=== PATIENT | female | born 1955 | race African-American/Black ===

== ENCOUNTER 2017-09-23 15:35 | Inpatient (IN) | payer MEDICARE, OTHER ==
[2017-09-23 18:50] LABS: ADD MAN DIFF? NO
[2017-09-23] MEDS: fentaNYL PF VIAL 100 MCG/2 ML VIAL IV ×3 (18:51→21:59)
[2017-09-23 18:54] LABS: BASO # 0.2 x10^3/uL (0.0-0.2); BASO % 1 % (0-3); EOS # 0.2 x10^3/uL (0.0-0.7); EOS % 2 % (0-3); HEMOGLOBIN 11.4 g/dL (12.0-15.5); LYMPH # 3.7 x10^3/uL (1.0-4.8); LYMPH % 29 % (24-48); MEAN CORPUSCULAR HEMOGLOBIN 29 pg (25-35); MEAN CORPUSCULAR HGB CONC 33 g/dL (31-37); MEAN CORPUSCULAR VOLUME 89 fL (79-100); MONO # 1.6 x10^3/uL (0.0-1.1); MONO % 13 % (0-9); NEUT % 56 % (31-73); PLATELET COUNT 273 x10^3/uL (140-400); RED BLOOD COUNT 3.95 x10^6/uL (3.50-5.40); RED CELL DISTRIBUTION WIDTH 16.1 % (11.5-14.5); WHITE BLOOD COUNT 12.6 x10^3/uL (4.0-11.0)
[2017-09-23 19:01] LABS: ANION GAP 9 (6-14); BLOOD UREA NITROGEN 22 mg/dL (7-20); CALCIUM 9.6 mg/dL (8.5-10.1); CARBON DIOXIDE 28 mmol/L (21-32); CHLORIDE 102 mmol/L (98-107); CREATININE 0.9 mg/dL (0.6-1.0); GFR 76.5; GLUCOSE 217 mg/dL (70-99); SODIUM 139 mmol/L (136-145)
[2017-09-23 19:02] LABS: INR 1.1 (0.8-1.1); PARTIAL THROMBOPLASTIN TIME 24 SEC (24-38); PROTHROMBIN TIME PATIENT 13.6 SEC (11.7-14.0)
[2017-09-23 20:00] LABS: ALBUMIN 3.2 g/dL (3.4-5.0); ALK PHOS 138 U/L (46-116); ALT (SGPT) 49 U/L (14-59); AST (SGOT) 39 U/L (15-37); DIRECT BILIRUBIN 0.1 mg/dL (0.0-0.2); LIPASE 79 U/L (73-393); TOTAL BILIRUBIN 0.3 mg/dL (0.2-1.0); TOTAL PROTEIN 7.5 g/dL (6.4-8.2)
[2017-09-23 20:04] LABS: TROPONINI 0.021 ng/mL (0.000-0.055)
[2017-09-23 20:08] LABS: NT-PRO BNP 40 pg/mL (0-124)
[2017-09-23] MEDS: ONDANSETRON PF 4 MG/2 ML VIAL. IV (20:26)
[2017-09-23] MEDS: FUROSEMIDE 20 MG/2 ML VIAL. IVP (20:27)
[2017-09-23] MEDS: MORPHINE SULFATE 4 MG/ML DISP.SYRIN. IV (23:33)
[2017-09-24] MEDS: MORPHINE SULFATE 4 MG/ML DISP.SYRIN. IV ×3 (01:25→16:53)
[2017-09-24] MEDS: oxyCODONE IR 5 MG TABLET PO ×3 (01:25→23:40)
[2017-09-24 07:41] LABS: ADD MAN DIFF? NO
[2017-09-24 07:45] LABS: BASO # 0.1 x10^3/uL (0.0-0.2); BASO % 1 % (0-3); EOS # 0.2 x10^3/uL (0.0-0.7); EOS % 1 % (0-3); HEMATOCRIT 36.7 % (36.0-47.0); HEMOGLOBIN 11.6 g/dL (12.0-15.5); LYMPH % 33 % (24-48); MEAN CORPUSCULAR HEMOGLOBIN 28 pg (25-35); MEAN CORPUSCULAR HGB CONC 32 g/dL (31-37); MEAN CORPUSCULAR VOLUME 90 fL (79-100); MONO # 1.9 x10^3/uL (0.0-1.1); MONO % 16 % (0-9); NEUT % 49 % (31-73); PLATELET COUNT 286 x10^3/uL (140-400); RED BLOOD COUNT 4.09 x10^6/uL (3.50-5.40); RED CELL DISTRIBUTION WIDTH 16.6 % (11.5-14.5); WHITE BLOOD COUNT 12.3 x10^3/uL (4.0-11.0)
[2017-09-24 08:12] LABS: ANION GAP 10 (6-14); BLOOD UREA NITROGEN 24 mg/dL (7-20); CALCIUM 9.4 mg/dL (8.5-10.1); CARBON DIOXIDE 27 mmol/L (21-32); CHLORIDE 104 mmol/L (98-107); CREATININE 1.6 mg/dL (0.6-1.0); GFR 39.4; GLUCOSE 198 mg/dL (70-99); POTASSIUM 4.6 mmol/L (3.5-5.1); SODIUM 141 mmol/L (136-145)
[2017-09-24] MEDS: buPROPion XL 150 MG TAB.ER.24H. PO (09:15)
[2017-09-24] MEDS ORDERED: DEXTROSE 50% 25 GM / 50ML DISP.SYRIN. IV (09:15)
[2017-09-24] MEDS ORDERED: ZOLPIDEM 5 MG TABLET. PO (09:15)
[2017-09-24] MEDS ORDERED: oxyCODONE IR 5 MG TABLET PO (09:15)
[2017-09-24] MEDS ORDERED: NON FORMULARY ITEM ([Albuterol Sulfate] (Ventolin Neb Soln) 2.5 MG) NEB (09:15)
[2017-09-24] MEDS: ANTI-COAG MONITOR BY PHARMACY. MC (09:28)
[2017-09-24] MEDS: OXYBUTYNIN CHLORIDE 5 MG TABLET PO ×3 (09:30→21:47)
[2017-09-24] MEDS ORDERED: PERFLUTREN PROTEIN-A MICROSPHR 0.22 MG/ML 3 ML VIAL. IV (11:09)
[2017-09-24] MEDS: PANTOPRAZOLE 40 MG TABLET.DR. PO (11:30)
[2017-09-24] MEDS: INSULIN ASPART 300 UNITS/3 ML INSULN.PEN SQ ×2 (12:00→17:19)
[2017-09-24] MEDS: ALBUTEROL SULFATE 2.5 MG/3 ML NEBU. NEB (13:05)
[2017-09-24 14:32] LABS: MRSA BY PCR Negative (Negative)
[2017-09-24] MEDS: PERFLUTREN PROTEIN-A MICROSPHR 0.22 MG/ML 3 ML VIAL. IV (14:43)
[2017-09-24] MEDS: DOXYCYCLINE HYCLATE 100 MG TABLET PO ×2 (16:38→21:46)
[2017-09-24] MEDS: FLUTICASONE 50MCG/NASAL SPRAY 16GM BOTTLE. NS (16:38)
[2017-09-24 17:05] LABS: POC GLUCOSE 237 mg/dL (70-99)
[2017-09-24] MEDS: INSULIN DETEMIR 300 UNITS/3 ML INSULN.PEN. SQ (17:18)
[2017-09-24 20:45] LABS: POC GLUCOSE 199 mg/dL (70-99)
[2017-09-24] MEDS: LACTOBACILLUS RHAMNOSUS GG 1 CAPSULE. PO (21:46)
[2017-09-24] MEDS: ATORVASTATIN CALCIUM 40 MG TABLET. PO (21:46)
[2017-09-25 00:10] LABS: HEMOGLOBIN A1C 8.4 % (4.8-5.6)
[2017-09-25] MEDS: oxyCODONE IR 5 MG TABLET PO ×5 (06:07→18:36)
[2017-09-25] MEDS: PANTOPRAZOLE 40 MG TABLET.DR. PO (06:07)
[2017-09-25 07:25] LABS: POC GLUCOSE 224 mg/dL (70-99)
[2017-09-25] MEDS: INSULIN ASPART 300 UNITS/3 ML INSULN.PEN SQ ×4 (08:35→18:42)
[2017-09-25] MEDS: LACTOBACILLUS RHAMNOSUS GG 1 CAPSULE. PO ×2 (08:36→21:10)
[2017-09-25] MEDS: buPROPion XL 150 MG TAB.ER.24H. PO (08:36)
[2017-09-25] MEDS: OXYBUTYNIN CHLORIDE 5 MG TABLET PO ×3 (08:36→21:10)
[2017-09-25] MEDS: DOXYCYCLINE HYCLATE 100 MG TABLET PO ×2 (08:36→21:10)
[2017-09-25 08:37] LABS: ADD MAN DIFF? NO
[2017-09-25] MEDS: FLUTICASONE 50MCG/NASAL SPRAY 16GM BOTTLE. NS (08:37)
[2017-09-25] MEDS: INSULIN DETEMIR 300 UNITS/3 ML INSULN.PEN. SQ (08:47)
[2017-09-25 08:57] LABS: BASO # 0.1 x10^3/uL (0.0-0.2); BASO % 1 % (0-3); EOS # 0.3 x10^3/uL (0.0-0.7); EOS % 2 % (0-3); HEMATOCRIT 33.2 % (36.0-47.0); HEMOGLOBIN 10.6 g/dL (12.0-15.5); LYMPH # 3.5 x10^3/uL (1.0-4.8); LYMPH % 30 % (24-48); MEAN CORPUSCULAR HEMOGLOBIN 28 pg (25-35); MEAN CORPUSCULAR HGB CONC 32 g/dL (31-37); MEAN CORPUSCULAR VOLUME 89 fL (79-100); MONO # 1.6 x10^3/uL (0.0-1.1); MONO % 13 % (0-9); NEUT # 6.5 x10^3uL (1.8-7.7); NEUT % 54 % (31-73); PLATELET COUNT 284 x10^3/uL (140-400); RED BLOOD COUNT 3.72 x10^6/uL (3.50-5.40); RED CELL DISTRIBUTION WIDTH 16.5 % (11.5-14.5)
[2017-09-25 09:16] LABS: ALBUMIN/GLOBULIN RATIO 0.7 (1.0-1.7); ALK PHOS 158 U/L (46-116); ALT (SGPT) 67 U/L (14-59); ANION GAP 6 (6-14); AST (SGOT) 57 U/L (15-37); BLOOD UREA NITROGEN 30 mg/dL (7-20); BUN/CREATININE RATIO 21 (6-20); CARBON DIOXIDE 31 mmol/L (21-32); CHLORIDE 103 mmol/L (98-107); CREATININE 1.4 mg/dL (0.6-1.0); GLUCOSE 239 mg/dL (70-99); POTASSIUM 4.5 mmol/L (3.5-5.1); SODIUM 140 mmol/L (136-145); TOTAL BILIRUBIN 0.3 mg/dL (0.2-1.0); TOTAL PROTEIN 7.3 g/dL (6.4-8.2)
[2017-09-25 11:14] LABS: POC GLUCOSE 232 mg/dL (70-99)
[2017-09-25] MEDS: ANTI-COAG MONITOR BY PHARMACY. MC (15:18)
[2017-09-25 17:00] LABS: POC GLUCOSE 236 mg/dL (70-99)
[2017-09-25] MEDS: CLOPIDOGREL BISULFATE 75 MG TABLET PO (17:04)
[2017-09-25] MEDS: FUROSEMIDE 40 MG TABLET. PO (17:04)
[2017-09-25] MEDS: metFORMIN 500 MG TABLET PO (17:04)
[2017-09-25] MEDS: cloNIDine HCL 0.2 MG TABLET PO ×2 (17:05→21:10)
[2017-09-25] MEDS: POTASSIUM CHLORIDE 10 MEQ TABLET.ER. PO (17:05)
[2017-09-25] MEDS: LOSARTAN POTASSIUM 50 MG TABLET. PO (17:06)
[2017-09-25] MEDS: DULoxetine HCL 30 MG CAPSULE.DR PO (17:07)
[2017-09-25] MEDS: CYCLOBENZAPRINE 10 MG TABLET. PO (21:09)
[2017-09-25] MEDS: ATORVASTATIN CALCIUM 40 MG TABLET. PO (21:09)
[2017-09-25] MEDS: ONDANSETRON PF 4 MG/2 ML VIAL. IV (21:10)
[2017-09-25] MEDS: GABAPENTIN 100 MG CAPSULE. PO (21:10)
[2017-09-25 21:23] LABS: POC GLUCOSE 168 mg/dL (70-99)
[2017-09-26 05:18] LABS: HEMATOCRIT 30.9 % (36.0-47.0); HEMOGLOBIN 10.1 g/dL (12.0-15.5); MEAN CORPUSCULAR HEMOGLOBIN 29 pg (25-35); MEAN CORPUSCULAR HGB CONC 33 g/dL (31-37); MEAN CORPUSCULAR VOLUME 89 fL (79-100); PLATELET COUNT 268 x10^3/uL (140-400); RED BLOOD COUNT 3.48 x10^6/uL (3.50-5.40); RED CELL DISTRIBUTION WIDTH 16.4 % (11.5-14.5); WHITE BLOOD COUNT 10.9 x10^3/uL (4.0-11.0)
[2017-09-26 05:36] LABS: ANION GAP 3 (6-14); BLOOD UREA NITROGEN 28 mg/dL (7-20); CARBON DIOXIDE 33 mmol/L (21-32); CHLORIDE 103 mmol/L (98-107); CREATININE 1.4 mg/dL (0.6-1.0); GLUCOSE 155 mg/dL (70-99); POTASSIUM 4.4 mmol/L (3.5-5.1); SODIUM 139 mmol/L (136-145)
[2017-09-26] MEDS: PANTOPRAZOLE 40 MG TABLET.DR. PO (07:30)
[2017-09-26] MEDS: metFORMIN 500 MG TABLET PO ×2 (08:01→16:32)
[2017-09-26] MEDS: oxyCODONE IR 5 MG TABLET PO ×3 (08:01→18:12)
[2017-09-26] MEDS: OXYBUTYNIN CHLORIDE 5 MG TABLET PO ×2 (08:02→11:38)
[2017-09-26] MEDS: LOSARTAN POTASSIUM 50 MG TABLET. PO (08:02)
[2017-09-26] MEDS: FUROSEMIDE 40 MG TABLET. PO (08:02)
[2017-09-26] MEDS: DULoxetine HCL 30 MG CAPSULE.DR PO (08:02)
[2017-09-26] MEDS: buPROPion XL 150 MG TAB.ER.24H. PO (08:03)
[2017-09-26] MEDS: LACTOBACILLUS RHAMNOSUS GG 1 CAPSULE. PO (08:03)
[2017-09-26] MEDS: DOXYCYCLINE HYCLATE 100 MG TABLET PO (08:03)
[2017-09-26] MEDS: CLOPIDOGREL BISULFATE 75 MG TABLET PO (08:03)
[2017-09-26] MEDS: POTASSIUM CHLORIDE 10 MEQ TABLET.ER. PO (08:03)
[2017-09-26] MEDS: FLUTICASONE 50MCG/NASAL SPRAY 16GM BOTTLE. NS (08:04)
[2017-09-26] MEDS: cloNIDine HCL 0.2 MG TABLET PO ×2 (08:04→11:39)
[2017-09-26] MEDS: INSULIN DETEMIR 300 UNITS/3 ML INSULN.PEN. SQ (08:13)
[2017-09-26] MEDS: INSULIN ASPART 300 UNITS/3 ML INSULN.PEN SQ ×6 (08:14→16:32)
[2017-09-26] MEDS ORDERED: CLOPIDOGREL BISULFATE 75 MG TABLET PO (09:00)
[2017-09-26 11:59] LABS: POC GLUCOSE 157 mg/dL (70-99)
[2017-09-26 14:50] LABS: BASE EXCESS ABG 3 mmol/L (-3-3); HCO3 ABG 28 mmol/L (21-28); PCO2 ABG 44 mmHg (35-46); PH ABG 7.42 (7.35-7.45); PO2 ABG 57 mmHg (65-108); SAT O2 ABG 89 % (92-99)
[2017-09-26 14:53] LABS: FIO2 ABG 21
[2017-09-26 16:42] LABS: POC GLUCOSE 96 mg/dL (70-99)
== END 2017-09-26 19:00 | DRG 562 ==
LOC: 5 NORTH 09-24 12:55 → ER 15:35 → 1 WEST ICU 19:56
DX: S52.501A Unspecified fracture of the lower end of right radius, initial encounter for closed fracture (principal); I63.9 Cerebral infarction, unspecified; J96.01 Acute respiratory failure with hypoxia; I27.81 Cor pulmonale (chronic); E66.01 Morbid (severe) obesity due to excess calories; G81.91 Hemiplegia, unspecified affecting right dominant side; E11.42 Type 2 diabetes mellitus with diabetic polyneuropathy; L03.116 Cellulitis of left lower limb; Z68.43 Body mass index [BMI] 50.0-59.9, adult; F41.9 Anxiety disorder, unspecified; M19.90 Unspecified osteoarthritis, unspecified site; E78.5 Hyperlipidemia, unspecified; G47.33 Obstructive sleep apnea (adult) (pediatric); I11.0 Hypertensive heart disease with heart failure; K21.9 Gastro-esophageal reflux disease without esophagitis; I50.9 Heart failure, unspecified; S52.601A Unspecified fracture of lower end of right ulna, initial encounter for closed fracture; W05.0XXA Fall from non-moving wheelchair, initial encounter; J44.9 Chronic obstructive pulmonary disease, unspecified; Z79.4 Long term (current) use of insulin; Y93.89 Activity, other specified; Y92.89 Other specified places as the place of occurrence of the external cause; Y99.8 Other external cause status; Z90.710 Acquired absence of both cervix and uterus; Z90.49 Acquired absence of other specified parts of digestive tract; Z87.01 Personal history of pneumonia (recurrent); Z87.891 Personal history of nicotine dependence; Z83.3 Family history of diabetes mellitus; Z99.3 Dependence on wheelchair; Z88.6 Allergy status to analgesic agent
CPT/HCPCS: 36415; 36600; 71045; 72100; 73080; 73110; 73521; 73600; 78582; 80048; 80053; 80076; 82306; 82805; 82962; 83036; 83690; 83880; 84484; 85025; 85027; 85610; 85730; 87641; 93005; 93970; 94640; 94760; 96374; 97162-GP; 97166-GO; A9540; A9558; C8929; J1650; J1815; J2270; J2405; J3010; J7613; Q9956

== ENCOUNTER → 2017-11-24 | Outpatient (CLI) | payer MEDICARE | END | disposition home or self-care (01) | LOC: ECHO 07:46 | DX: I11.0 Hypertensive heart disease with heart failure (principal); I50.9 Heart failure, unspecified; E78.5 Hyperlipidemia, unspecified; J44.9 Chronic obstructive pulmonary disease, unspecified; Z87.891 Personal history of nicotine dependence | CPT/HCPCS: 93306 ==

== ENCOUNTER 2018-05-16 00:17 | Inpatient (IN) | payer MEDICARE ==
[~2018-05-16] VITALS: Ht 162.6 cm; Wt 130.4 kg
[~2018-05-16 00:17] MED LIST: AMLO10TA4 PO; AMLO5TAB7 PO; ATOR40TA59 PO; Albuterol Sulfate NEB; Amlodipine PO; BUPR150T6 PO; CEPH-264 PO; CLON0.2T PO; CLOP75TA PO; CYCL10TA2 PO; DULO60CA6 PO; FLUT16SP NS; FLUT1DIS3 INH; FURO40TA4 PO; GABA-585 PO; INSU100I11 SQ; INSU100I13 SQ; LORA10TA3 PO; METF500T16 PO; Melatonin PO; OXYC5TAB88 PO; PANT40TA3 PO; POTA10TA6 PO; PRED-220 PO; Promethazine Hcl/Codeine PO; TOLT4CAP PO; VALS320T2 PO; ZOLP5TAB PO; [UNRECOGNIZED DRUG - CODE] PO
--- NOTE | 2018-05-16 01:49 | RAD ---
CT scan of the head without contrast 05/16/2018 Clinical History: Altered mental status. Generalized weakness. Technique: Unenhanced, contiguous, 5 mm axial sections were obtained through the head. One or more of the following individualized dose reduction techniques were utilized for this study: 1. Automated exposure control. 2. Adjustment of the mA and/or kV according to patient size. 3. Use of iterative reconstruction technique. Findings: Comparison study is dated 07/16/2012. There is generalized parenchymal atrophy. Areas of decreased attenuation are seen within the periventricular and subcortical white matter of both cerebral hemispheres consistent with areas of small vessel ischemic disease. Areas of encephalomalacia are seen involving both occipital lobes No acute parenchymal abnormality is seen. No extra-axial fluid collection is noted. No skull fracture is seen. Impression: No acute intracranial abnormality is seen. Electronically signed by: Jeevan Vieira MD (05/16/2018 1:46 AM) [id number]
[2018-05-16 01:50] LABS: BASO # 0.1 x10^3/uL (0.0-0.2); BASO % 1 % (0-3); EOS # 0.2 x10^3/uL (0.0-0.7); EOS % 1 % (0-3); HEMATOCRIT 31.8 % (36.0-47.0); LYMPH # 2.5 x10^3/uL (1.0-4.8); LYMPH % 16 % (24-48); MEAN CORPUSCULAR HEMOGLOBIN 26 pg (25-35); MEAN CORPUSCULAR HGB CONC 32 g/dL (31-37); MEAN CORPUSCULAR VOLUME 81 fL (79-100); MONO # 1.3 x10^3/uL (0.0-1.1); MONO % 9 % (0-9); NEUT # 11.5 x10^3uL (1.8-7.7); NEUT % 73 % (31-73); PLATELET COUNT 351 x10^3/uL (140-400); RED BLOOD COUNT 3.94 x10^6/uL (3.50-5.40); RED CELL DISTRIBUTION WIDTH 16.7 % (11.5-14.5); WHITE BLOOD COUNT 15.7 x10^3/uL (4.0-11.0)
[2018-05-16 02:00] LABS: CREATININE 1.6 mg/dL (0.6-1.0); GFR 39.3; POTASSIUM 3.3 mmol/L (3.5-5.1)
[2018-05-16 02:06] LABS: ALBUMIN 2.9 g/dL (3.4-5.0); ALBUMIN/GLOBULIN RATIO 0.6 (1.0-1.7); TOTAL BILIRUBIN 0.2 mg/dL (0.2-1.0); TOTAL PROTEIN 7.5 g/dL (6.4-8.2)
[2018-05-16 02:24] LABS: BILIRUBIN,URINE NEGATIVE (NEG); CLARITY,URINE CLEAR; COLOR,URINE YELLOW; NITRITE,URINE NEGATIVE (NEG); PH,URINE 5.5; PROTEIN,URINE 100 mg/dL (NEG-TRACE); UROBILINOGEN,URINE 0.2 mg/dL (0.2 mg/dL)
[2018-05-16 02:29] LABS: BASE EXCESS ABG 2 mmol/L (-3-3); HCO3 ABG 26 mmol/L (21-28); PCO2 ABG 42 mmHg (35-46); PO2 ABG 69 mmHg (65-108); SAT O2 ABG 92 % (92-99)
[2018-05-16] MEDS ORDERED: CLOPIDOGREL BISULFATE 75 MG TABLET PO ONE (02:30)
[2018-05-16] MEDS ORDERED: cefTRIAXone IV Push 1 GM VIAL. IVP ONE (02:30)
[2018-05-16 02:32] LABS: BACTERIA,URINE MANY /HPF (0-FEW); RBC,URINE RARE /HPF (0-2)
[2018-05-16 02:33] LABS: HYALINE CASTS, URINE MANY /HPF
[2018-05-16] MEDS ORDERED: DOXYCYCLINE HYCLATE 100 MG in IV DEXTROSE 5% 100ML 100 ML IV ONE (02:45)
[2018-05-16] MEDS ORDERED: ASPIRIN 300 MG SUPP.RECT PR ONE (02:45)
[2018-05-16] MEDS ORDERED: POTASSIUM CL 20MEQ D5-0.45NACL 1,000 ML IV ONE (03:00)
[2018-05-16] MEDS ORDERED: IV NORMAL SALINE 1000ML BAG 1,000 ML IV ONE (03:00)
[2018-05-16] MEDS ORDERED: DEXTROSE 50% 25 GM / 50ML DISP.SYRIN. IV ONE ×2 (03:15→08:02)
--- NOTE | 2018-05-16 03:31 | RAD ---
AP portable chest radiograph 05/16/2018 Clinical History: Generalized weakness. An AP erect portable digital radiograph of the chest was obtained. Comparison study is dated 09/23/2017. The cardiac silhouette is mildly enlarged. Atherosclerotic calcification of the thoracic aorta is seen. No acute pulmonary infiltrate is seen. No pleural effusion or pneumothorax is noted. The osseous structures are grossly intact. Impression: No acute abnormality is seen. Electronically signed by: Jeevan Vieira MD (05/16/2018 3:27 AM) [facility]
--- NOTE | 2018-05-16 03:56 | PHYS DOC ---
Past Medical History Past Medical History: CVA, Diabetes-Type I, Hypertension, Stroke Past Surgical History: Appendectomy, Cholecystectomy, Hysterectomy, Other Additional Past Surgical Histo: back Alcohol Use: None Drug Use: None Adult General Chief Complaint Chief Complaint: WEAKNESS/GENERALIZED HPI HPI Patient is a 63 year old female who is presenting brought in by ambulance with generalized weakness. Apparently for the last 3 days she has had increasing able to ambulate on her own she has been coughing she is more short of breath than normal in addition she is having slurred speech the partner who is with her and lives with her thinks that she may have had another stroke as this was similar to how she was with her last one was. Overall history the patient's altered mental status. She has had decreased by mouth intake and a couple of bites of chicken at around 6 PM did give her dose of insulin around that time as well. Additional history obtained from the daughter reveals the patient is a DNR/DNI she is worried because the patient has been coughing for over a month and did take some outpatient antibiotics at that 3 weeks ago but she is still coughing. For the paramedics the blood sugar was 41 they gave glucagon and fluids and it went up to 122 and then dropped back down to 96. Review of Systems Review of Systems unable due to ams Current Medications Current Medications Current Medications Medications (Trade) Dose Ordered Sig/Nam Start Time Stop Time Status Last Admin Dose Admin Aspirin (Aspirin) 300 mg 1X ONCE 05/16/18 02:45 05/16/18 02:53 DC 05/16/18 02:58 300 MG Ceftriaxone Sodium (Rocephin) 1 gm ONCE ONCE 05/16/18 02:30 05/16/18 02:31 DC 05/16/18 02:57 1 GM Clopidogrel Bisulfate (Plavix) 75 mg 1X ONCE 05/16/18 02:30 05/16/18 02:31 DC Doxycycline Hyclate 100 mg/ Dextrose 100 ml @ 50 mls/hr 1X ONCE 05/16/18 02:45 05/16/18 04:44 05/16/18 03:43 50 MLS/HR Allergies Allergies Allergies Coded Allergies Type Severity Reaction Last Updated Verified aspirin Adverse Reaction Intermediate UPSET STOMACHE 05/16/18 Yes Physical Exam Physical Exam Constitutional: Well-appearing overall somnolent but arousable to voice or light touch ill-appearing HENT: Normocephalic, atraumatic, bilateral external ears normal, oropharynx moist, no oral exudates, nose normal. [] Eyes: PERRLA, EOMI, conjunctiva normal, no discharge. [] Neck: Normal range of motion, no tenderness, supple, no stridor. [] Cardiovascular:Heart rate regular rhythm, no murmur [] Lungs & Thorax: decreased breath sounds b/l lung bases. Abdomen: Bowel sounds normal, soft, no tenderness, no masses, no pulsatile masses. [] Skin: Warm, dry, no erythema, no rash. [] Extremities: No tenderness, no cyanosis, no clubbing, ROM intact, chronic appering edema Neurologic: alert when stimulated, gcs e 3 v 4 m 6. pt has hemiparesis no movement of right side, (old) drift noted left lower extremity slurred speech noted sleepy but arousable not able to answer questions appropriately. right facial droop able to bury sclera b/l does not blink to threat. Current Patient Data Vital Signs Vital Signs Date Time Temp Pulse Resp B/P (MAP) Pulse Ox O2 Delivery O2 Flow Rate FiO2 05/16/18 01:00 66 20 96 05/16/18 00:17 98.6 95/57 (70) Nasal Cannula 4.0 98.6 Lab Values Laboratory Tests Test 05/16/18 00:25 05/16/18 01:40 05/16/18 01:55 05/16/18 02:05 Glucose (Fingerstick) 96 mg/dL (70-99) 76 mg/dL (70-99) White Blood Count 15.7 x10^3/uL (4.0-11.0) H Red Blood Count 3.94 x10^6/uL (3.50-5.40) Hemoglobin 10.0 g/dL (12.0-15.5) L Hematocrit 31.8 % (36.0-47.0) L Mean Corpuscular Volume 81 fL (79-100) Mean Corpuscular Hemoglobin 26 pg (25-35) Mean Corpuscular Hemoglobin Concent 32 g/dL (31-37) Red Cell Distribution Width 16.7 % (11.5-14.5) H Platelet Count 351 x10^3/uL (140-400) Neutrophils (%) (Auto) 73 % (31-73) Lymphocytes (%) (Auto) 16 % (24-48) L Monocytes (%) (Auto) 9 % (0-9) Eosinophils (%) (Auto) 1 % (0-3) Basophils (%) (Auto) 1 % (0-3) Neutrophils # (Auto) 11.5 x10^3uL (1.8-7.7) H Lymphocytes # (Auto) 2.5 x10^3/uL (1.0-4.8) Monocytes # (Auto) 1.3 x10^3/uL (0.0-1.1) H Eosinophils # (Auto) 0.2 x10^3/uL (0.0-0.7) Basophils # (Auto) 0.1 x10^3/uL (0.0-0.2) Sodium Level 142 mmol/L (136-145) Potassium Level 3.3 mmol/L (3.5-5.1) L Chloride Level 101 mmol/L (98-107) Carbon Dioxide Level 30 mmol/L (21-32) Anion Gap 11 (6-14) Blood Urea Nitrogen 30 mg/dL (7-20) H Creatinine 1.6 mg/dL (0.6-1.0) H Estimated GFR (Cockcroft-Gault) 39.3 BUN/Creatinine Ratio 19 (6-20) Glucose Level 73 mg/dL (70-99) Lactic Acid Level 2.2 mmol/L (0.4-2.0) H Calcium Level 9.0 mg/dL (8.5-10.1) Total Bilirubin 0.2 mg/dL (0.2-1.0) Aspartate Amino Transferase (AST) 25 U/L (15-37) Alanine Aminotransferase (ALT) 29 U/L (14-59) Alkaline Phosphatase 108 U/L (46-116) Creatine Kinase 140 U/L (26-192) Troponin I Quantitative 0.115 ng/mL (0.000-0.055) QJ-Gzy-Z-Type Natriuretic Peptide 46 pg/mL (0-124) Total Protein 7.5 g/dL (6.4-8.2) Albumin 2.9 g/dL (3.4-5.0) L Albumin/Globulin Ratio 0.6 (1.0-1.7) L Ethyl Alcohol Level < 10 mg/dL (0-10) O2 Saturation 92 % (92-99) Arterial Blood pH 7.41 (7.35-7.45) Arterial Blood pCO2 at Patient Temp 42 mmHg (35-46) Arterial Blood pO2 at Patient Temp 69 mmHg (65-108) Arterial Blood HCO3 26 mmol/L (21-28) Arterial Blood Base Excess 2 mmol/L (-3-3) Test 05/16/18 02:10 05/16/18 02:58 Urine Collection Type U cath Urine Color Yellow Urine Clarity Clear Urine pH 5.5 Urine Specific [place] 1.020 Urine Protein 100 mg/dL (NEG-TRACE) Urine Glucose (UA) Negative mg/dL (NEG) Urine Ketones (Stick) Negative mg/dL (NEG) Urine Blood Negative (NEG) Urine Nitrite Negative (NEG) Urine Bilirubin Negative (NEG) Urine Urobilinogen Dipstick 0.2 mg/dL (0.2 mg/dL) Urine Leukocyte Esterase Moderate (NEG) Urine RBC Rare /HPF (0-2) Urine WBC 11-20 /HPF (0-4) Urine Squamous Epithelial Cells None /LPF Urine Bacteria Many /HPF (0-FEW) Urine Hyaline Casts Many /HPF Urine Mucus Mod /LPF Glucose (Fingerstick) 35 mg/dL (70-99) *L Laboratory Tests 05/16/18 01:40 Laboratory Tests 05/16/18 01:40 EKG EKG [] Interpretation Time: EKG shows a normal sinus rhythm with a rate of 70 there are no acute ischemic changes noted this was interpreted by me time of encounter Radiology/Procedures Radiology/Procedures [] Impressions: The cardiac silhouette is mildly enlarged. Atherosclerotic calcification of the thoracic aorta is seen. No acute pulmonary infiltrate is seen. No pleural effusion or pneumothorax is noted. The osseous structures are grossly intact. Impression: No acute abnormality is seen. Electronically signed by: Jeevan Vieira MD (05/16/2018 3:27 AM) [facility] DICTATED and SIGNED BY: JEEVAN VIEIRA MD DATE: 05/16/18 0325 my interpretatino of chest xray during the course of er visit is opacity at the left lung base with loss of diaphragm. gs: Comparison study is dated 07/16/2012. There is generalized parenchymal atrophy. Areas of decreased attenuation are seen within the periventricular and subcortical white matter of both cerebral hemispheres consistent with areas of small vessel ischemic disease. Areas of encephalomalacia are seen involving both occipital lobes No acute parenchymal abnormality is seen. No extra-axial fluid collection is noted. No skull fracture is seen. Impression: No acute intracranial abnormality is seen. Electronically signed by: Jeevan Vieira MD (05/16/2018 1:46 AM) [facility] DICTATED and SIGNED BY: JEEVAN VIEIRA MD DATE: 05/16/18 0144 Course & Med Decision Making Course & Med Decision Making Pertinent Labs and Imaging studies reviewed. (See chart for details) []63-year-old female with history of prior stroke diabetes presenting with increase in his dose over the last 3 or 4 days. She is known hemiparesis this does not seem different than her baseline however mental status is depressed. She has multiple reasons for this she has a leukocytosis I think she might have a pneumonia on her chest x-ray although the final read was negative. Urinalysis is noted for pyuria to be covered with ceftriaxone. She is a bump in her creatinine up to 1.6 from a baseline of 0.8 her lactic acid is mildly elevated. In addition patient is having recurrent hypoglycemia she did have a hypoglycemia in the field and then has repeatedly dropped back down in the emergency room. This is likely related to combination of acute kidney injury with excess insulin and also possibly decreased by mouth intake at home. I have ordered dextrose strip and every 2 hours glucose checks overnight for the hospital. I spoke with Dr. Gonzalez at 2:30 AM plan to admit to the hospital for possible pneumonia leukocytosis dehydration bump in troponin hypoglycemia on a recurrent basis. CVA is a possibility however patient has multiple other reasons for altered mental status at this time. rectal aspirin given. trop likely from renal insufficiency no chest pain or ekg changes. cycle in house repeat lactic in house as well. Dragon Disclaimer Dragon Disclaimer This electronic medical record was generated, in whole or in part, using a voice recognition dictation system. Departure Departure Impression: Primary Impression: Pneumonia Additional Impressions: Troponin level elevated Acute kidney injury Hypoglycemia Disposition: 09 ADMITTED INPATIENT Admitting Physician: Pushpa Gonzalez Condition: STABLE Referrals: KEVIN GUERRERO MD (PCP) Problem Qualifiers CARMEN MERCADO MD May 16, 2018 03:56
[2018-05-16 04:55] VITALS: BP 138/59
[2018-05-16 07:00] VITALS: BP 163/79
[2018-05-16] MEDS ORDERED: INSU100I17 SQ (10:16)
[2018-05-16] MEDS ORDERED: HYDR12.575 PO (10:16)
[2018-05-16] MEDS ORDERED: INSU300I SQ (10:16)
[2018-05-16] MEDS ORDERED: METO50TA6 PO (10:16)
[2018-05-16] MEDS ORDERED: LOSA100T14 PO (10:16)
[2018-05-16] MEDS ORDERED: DEXTROSE 50% 25 GM / 50ML DISP.SYRIN. IV PRN (10:30)
--- NOTE | 2018-05-16 10:53 | PDOC ---
PROGRESS NOTES Subjective Subjective Patient denies chest pain or SOA. Feels weak on right side. Objective Objective Vital Signs Date Time Temp Pulse Resp B/P (MAP) Pulse Ox O2 Delivery O2 Flow Rate FiO2 05/16/18 07:44 Nasal Cannula 4.0 05/16/18 07:00 97.6 72 20 163/79 (107) 96 97.6 Intake and Output 05/16/18 07:00 Intake Total 100 ml Balance 100 ml Intake IV Total 100 ml Physical Exam Abdomen: Normal bowel sounds, Soft, No tenderness Heart: Regular rate Extremities: Other (mild chronic edema bilateral LE's, mild diffuse erythema L LE with scabbed lesion, no induration or exudate) General: Alert, Oriented X3, No acute distress Lungs: Other (BS decreased throughout, no wheezes heard, no cough during exam) Assessment Assessment Problems Medical Problems: (1) Acute kidney injury Status: Acute (2) Hypoglycemia Status: Acute (3) Pneumonia Status: Acute (4) Troponin level elevated Status: Acute Plan Plan of Care 1. Weakness R side - hx CVA with R hemiplegia but patient reports she felt much weaker than usual yesterday. This appears to have been the primary reason she was brought to the ER. CT head without contrast was without acute findings. MRI brain ordered. Continue her usual blood thinner. ST for bedside swallow evaluation ordered. Patient states she did not previously have trouble with swallowing and denies cough with eating. 2. Probably UTI - urine with 11-20 WBC's and no squamous cells. Patient denies urinary symptoms. Rocephin started, urine and blood cultures pending. 3. Elevated Troponin - level low but increasing. Patient denies CP. Does not have hx of CAD or CHF, last Echo 10/01 showed preserved EF but was technically difficult. Negative stress test in 2015. Will consult Cardiology since troponin is increasing. 4. DM2 with hypoglycemia - patient is insulin-dependent and recent A1C in our office was 9.7, indicating her diabetes has been poorly controlled. May have had decreased po intake recently due to illness. SS ordered, will hold her usual insulins at present and resume when needed. 5. Cough with hypoxia - CXR at admission was clear. No wheezes on exam. Patient does have long smoking history but quit 10 years ago and does not use inhalers at home. Continue O2 if needed. 6. Acute renal failure - BUN and Creatinine elevated at admission. Receiving IVF , will continue these for 24 hours then recheck lab. PO as tolerated. Comment Review of Relevant I have reviewed the following items emir (where applicable) has been applied. Labs Laboratory Tests Test 05/16/18 00:25 05/16/18 01:40 05/16/18 01:55 05/16/18 02:05 Glucose (Fingerstick) 96 mg/dL (70-99) 76 mg/dL (70-99) White Blood Count 15.7 x10^3/uL (4.0-11.0) Red Blood Count 3.94 x10^6/uL (3.50-5.40) Hemoglobin 10.0 g/dL (12.0-15.5) Hematocrit 31.8 % (36.0-47.0) Mean Corpuscular Volume 81 fL (79-100) Mean Corpuscular Hemoglobin 26 pg (25-35) Mean Corpuscular Hemoglobin Concent 32 g/dL (31-37) Red Cell Distribution Width 16.7 % (11.5-14.5) Platelet Count 351 x10^3/uL (140-400) Neutrophils (%) (Auto) 73 % (31-73) Lymphocytes (%) (Auto) 16 % (24-48) Monocytes (%) (Auto) 9 % (0-9) Eosinophils (%) (Auto) 1 % (0-3) Basophils (%) (Auto) 1 % (0-3) Neutrophils # (Auto) 11.5 x10^3uL (1.8-7.7) Lymphocytes # (Auto) 2.5 x10^3/uL (1.0-4.8) Monocytes # (Auto) 1.3 x10^3/uL (0.0-1.1) Eosinophils # (Auto) 0.2 x10^3/uL (0.0-0.7) Basophils # (Auto) 0.1 x10^3/uL (0.0-0.2) Sodium Level 142 mmol/L (136-145) Potassium Level 3.3 mmol/L (3.5-5.1) Chloride Level 101 mmol/L (98-107) Carbon Dioxide Level 30 mmol/L (21-32) Anion Gap 11 (6-14) Blood Urea Nitrogen 30 mg/dL (7-20) Creatinine 1.6 mg/dL (0.6-1.0) Estimated GFR (Cockcroft-Gault) 39.3 BUN/Creatinine Ratio 19 (6-20) Glucose Level 73 mg/dL (70-99) Lactic Acid Level 2.2 mmol/L (0.4-2.0) Calcium Level 9.0 mg/dL (8.5-10.1) Total Bilirubin 0.2 mg/dL (0.2-1.0) Aspartate Amino Transf (AST/SGOT) 25 U/L (15-37) Alanine Aminotransferase (ALT/SGPT) 29 U/L (14-59) Alkaline Phosphatase 108 U/L (46-116) Creatine Kinase 140 U/L (26-192) Troponin I Quantitative 0.115 ng/mL (0.000-0.055) YS-Ndw-M-Type Natriuretic Peptide 46 pg/mL (0-124) Total Protein 7.5 g/dL (6.4-8.2) Albumin 2.9 g/dL (3.4-5.0) Albumin/Globulin Ratio 0.6 (1.0-1.7) Ethyl Alcohol Level < 10 mg/dL (0-10) O2 Saturation 92 % (92-99) Arterial Blood pH 7.41 (7.35-7.45) Arterial Blood pCO2 at Patient Temp 42 mmHg (35-46) Arterial Blood pO2 at Patient Temp 69 mmHg (65-108) Arterial Blood HCO3 26 mmol/L (21-28) Arterial Blood Base Excess 2 mmol/L (-3-3) Test 05/16/18 02:10 05/16/18 02:58 05/16/18 03:28 05/16/18 05:54 Urine Collection Type U cath Urine Color Yellow Urine Clarity Clear Urine pH 5.5 Urine Specific [place] 1.020 Urine Protein 100 mg/dL (NEG-TRACE) Urine Glucose (UA) Negative mg/dL (NEG) Urine Ketones (Stick) Negative mg/dL (NEG) Urine Blood Negative (NEG) Urine Nitrite Negative (NEG) Urine Bilirubin Negative (NEG) Urine Urobilinogen Dipstick 0.2 mg/dL (0.2 mg/dL) Urine Leukocyte Esterase Moderate (NEG) Urine RBC Rare /HPF (0-2) Urine WBC 11-20 /HPF (0-4) Urine Squamous Epithelial Cells None /LPF Urine Bacteria Many /HPF (0-FEW) Urine Hyaline Casts Many /HPF Urine Mucus Mod /LPF Glucose (Fingerstick) 35 mg/dL (70-99) 162 mg/dL (70-99) 108 mg/dL (70-99) Test 05/16/18 06:30 05/16/18 07:56 05/16/18 08:26 05/16/18 08:45 Lactic Acid Level 1.7 mmol/L (0.4-2.0) Troponin I Quantitative 0.269 ng/mL (0.000-0.055) 0.304 ng/mL (0.000-0.055) Glucose (Fingerstick) 56 mg/dL (70-99) 139 mg/dL (70-99) Test 05/16/18 09:56 Glucose (Fingerstick) 98 mg/dL (70-99) Laboratory Tests Test 05/16/18 00:25 05/16/18 01:40 05/16/18 01:55 05/16/18 02:05 Glucose (Fingerstick) 96 mg/dL (70-99) 76 mg/dL (70-99) White Blood Count 15.7 x10^3/uL (4.0-11.0) Red Blood Count 3.94 x10^6/uL (3.50-5.40) Hemoglobin 10.0 g/dL (12.0-15.5) Hematocrit 31.8 % (36.0-47.0) Mean Corpuscular Volume 81 fL (79-100) Mean Corpuscular Hemoglobin 26 pg (25-35) Mean Corpuscular Hemoglobin Concent 32 g/dL (31-37) Red Cell Distribution Width 16.7 % (11.5-14.5) Platelet Count 351 x10^3/uL (140-400) Neutrophils (%) (Auto) 73 % (31-73) Lymphocytes (%) (Auto) 16 % (24-48) Monocytes (%) (Auto) 9 % (0-9) Eosinophils (%) (Auto) 1 % (0-3) Basophils (%) (Auto) 1 % (0-3) Neutrophils # (Auto) 11.5 x10^3uL (1.8-7.7) Lymphocytes # (Auto) 2.5 x10^3/uL (1.0-4.8) Monocytes # (Auto) 1.3 x10^3/uL (0.0-1.1) Eosinophils # (Auto) 0.2 x10^3/uL (0.0-0.7) Basophils # (Auto) 0.1 x10^3/uL (0.0-0.2) Sodium Level 142 mmol/L (136-145) Potassium Level 3.3 mmol/L (3.5-5.1) Chloride Level 101 mmol/L (98-107) Carbon Dioxide Level 30 mmol/L (21-32) Anion Gap 11 (6-14) Blood Urea Nitrogen 30 mg/dL (7-20) Creatinine 1.6 mg/dL (0.6-1.0) Estimated GFR (Cockcroft-Gault) 39.3 BUN/Creatinine Ratio 19 (6-20) Glucose Level 73 mg/dL (70-99) Lactic Acid Level 2.2 mmol/L (0.4-2.0) Calcium Level 9.0 mg/dL (8.5-10.1) Total Bilirubin 0.2 mg/dL (0.2-1.0) Aspartate Amino Transf (AST/SGOT) 25 U/L (15-37) Alanine Aminotransferase (ALT/SGPT) 29 U/L (14-59) Alkaline Phosphatase 108 U/L (46-116) Creatine Kinase 140 U/L (26-192) Troponin I Quantitative 0.115 ng/mL (0.000-0.055) YK-Rjm-P-Type Natriuretic Peptide 46 pg/mL (0-124) Total Protein 7.5 g/dL (6.4-8.2) Albumin 2.9 g/dL (3.4-5.0) Albumin/Globulin Ratio 0.6 (1.0-1.7) Ethyl Alcohol Level < 10 mg/dL (0-10) O2 Saturation 92 % (92-99) Arterial Blood pH 7.41 (7.35-7.45) Arterial Blood pCO2 at Patient Temp 42 mmHg (35-46) Arterial Blood pO2 at Patient Temp 69 mmHg (65-108) Arterial Blood HCO3 26 mmol/L (21-28) Arterial Blood Base Excess 2 mmol/L (-3-3) Test 05/16/18 02:10 121/18 02:58 05/16/18 03:28 05/16/18 05:54 Urine Collection Type U cath Urine Color Yellow Urine Clarity Clear Urine pH 5.5 Urine Specific [place] 1.020 Urine Protein 100 mg/dL (NEG-TRACE) Urine Glucose (UA) Negative mg/dL (NEG) Urine Ketones (Stick) Negative mg/dL (NEG) Urine Blood Negative (NEG) Urine Nitrite Negative (NEG) Urine Bilirubin Negative (NEG) Urine Urobilinogen Dipstick 0.2 mg/dL (0.2 mg/dL) Urine Leukocyte Esterase Moderate (NEG) Urine RBC Rare /HPF (0-2) Urine WBC 11-20 /HPF (0-4) Urine Squamous Epithelial Cells None /LPF Urine Bacteria Many /HPF (0-FEW) Urine Hyaline Casts Many /HPF Urine Mucus Mod /LPF Glucose (Fingerstick) 35 mg/dL (70-99) 162 mg/dL (70-99) 108 mg/dL (70-99) Test 05/16/18 06:30 05/16/18 07:56 05/16/18 08:26 05/16/18 08:45 Lactic Acid Level 1.7 mmol/L (0.4-2.0) Troponin I Quantitative 0.269 ng/mL (0.000-0.055) 0.304 ng/mL (0.000-0.055) Glucose (Fingerstick) 56 mg/dL (70-99) 139 mg/dL (70-99) Test 05/16/18 09:56 Glucose (Fingerstick) 98 mg/dL (70-99) Medications Current Medications Clopidogrel Bisulfate (Plavix) 75 mg 1X ONCE PO ; Start 05/16/18 at 02:30; Stop 05/16/18 at 02:31; Status DC Ceftriaxone Sodium 50 ml @ 100 mls/hr 1X ONCE IV ; Start 05/16/18 at 02:15; Stop 05/16/18 at 02:44; Status UNV Doxycycline Hyclate 100 mg/ Dextrose 100 ml @ 50 mls/hr 1X ONCE IV Last administered on 05/16/18at 03:43; Start 05/16/18 at 02:45; Stop 05/16/18 at 04:44 ; Status DC Ceftriaxone Sodium (Rocephin) 1 gm ONCE ONCE IVP Last administered on at 02:57; Start 05/16/18 at 02:30; Stop 05/16/18 at 02:31; Status DC Potassium Chloride/Dextrose/ Sod Cl 1,000 ml @ 100 mls/hr 1X ONCE IV Last administered on 05/16/18at 02:59; Start 05/16/18 at 03:00; Stop 05/16/18 at 12:59 Aspirin (Aspirin) 300 mg 1X ONCE W[place] Last administered on 05/16/18at 02:58; Start 05/16/18 at 02:45; Stop 05/16/18 at 02:53; Status DC Sodium Chloride 1,000 ml @ 1,000 mls/hr 1X ONCE IV Last administered on at 03:42; Start 05/16/18 at 03:00; Stop 05/16/18 at 03:59; Status DC Dextrose (Dextrose 50%-Water Syringe) 25 gm 1X ONCE IV Last administered on at 03:03; Start 05/16/18 at 03:15; Stop 05/16/18 at 03:16; Status DC Dextrose (Dextrose 50%-Water Syringe) 25 gm STK-MED ONCE IV ; Start 05/16/18 at 08:02; Stop 05/16/18 at 08:03; Status DC Insulin Human Lispro (HumaLOG) 0-9 UNITS TIDWMEALS SQ ; Start 05/16/18 at 12:00 Dextrose (Dextrose 50%-Water Syringe) 12.5 gm PRN Q15MIN PRN IV SEE COMMENTS; Start 05/16/18 at 10:30 Ceftriaxone Sodium 50 ml @ 100 mls/hr 1X ONCE IV ; Start 05/17/18 at 00:00; Stop 05/17/18 at 00:29; Status UNV Ceftriaxone Sodium (Rocephin) 1 gm 1X ONCE IVP ; Start 05/17/18 at 00:00; Stop 05/17/18 at 00:01 Active Scripts Active Tanisha Singhostar (Insulin Glargine,Hum.rec.anlog) 300 Unit/1 Ml Insuln.pen 65 Unit SQ [id number] 30 Days Novolog Flexpen (Insulin Aspart) 100 Unit/1 Ml Insuln.pen 55 Unit SQ TIDAC 30 Days Hydrochlorothiazide Capsule (Hydrochlorothiazide) 12.5 Mg Capsule 12.5 Mg PO DAILY 30 Days Metoprolol Tartrate 50 Mg Tablet 1 Tab PO BID Losartan Potassium 100 Mg Tablet 100 Mg PO DAILY 30 Days [Albuterol Sulfate] 2.5 MG/3 ML Nebu 2.5 Mg NEB PRN Q4HRS PRN Bupropion Xl (Bupropion Hcl) 150 Mg Tab.er.24h 150 Mg PO DAILY 30 Days Detrol La (Tolterodine Tartrate) 4 Mg Cap.er.24h 4 Mg PO DAILY 30 Days Reported Cyclobenzaprine Hcl 10 Mg Tablet 1 Tab PO QHS Amlodipine Besylate 5 Mg Tablet 5 Mg PO DAILY Loratadine 10 Mg Tablet 1 Tab PO DAILY Metformin Hcl 500 Mg Tablet 500 Mg PO BIDWMEALS Furosemide 40 Mg Tablet 1 Tab PO DAILY Cymbalta (Duloxetine Hcl) 60 Mg Capsule.dr 1 Cap PO DAILY Klor-Con 10 (Potassium Chloride) 10 Meq Tablet.er 10 Meq PO DAILY Gabapentin 100 Mg Capsule 100 Mg PO HS [Melatonin] PO HS Clopidogrel (Clopidogrel Bisulfate) 75 Mg Tablet 1 Tab PO DAILY Atorvastatin Calcium 40 Mg Tablet 1 Tab PO QHS Clonidine Hcl 0.2 Mg Tablet 0.2 Mg PO TID Vitals/I & O Vital Sign - Last 24 Hours 05/16/18 05/16/18 05/16/18 05/16/18 00:17 00:30 00:45 01:00 Temp 98.6 98.6 Pulse 69 68 68 66 Resp 24 18 20 20 B/P (MAP) 95/57 (70) Pulse Ox 92 97 96 O2 Delivery Nasal Cannula O2 Flow Rate 4.0 05/16/18 05/16/18 05/16/18 05/16/18 02:30 03:00 03:30 04:00 Pulse 66 70 68 66 Resp 18 18 16 18 Pulse Ox 98 97 93 98 05/16/18 05/16/18 05/16/18 05/16/18 04:15 04:55 05:49 07:00 Temp 97.4 97.6 97.4 97.6 Pulse 70 65 72 Resp 16 20 20 B/P (MAP) 138/59 (85) 163/79 (107) Pulse Ox 96 97 96 O2 Delivery Room Air Nasal Cannula Room Air O2 Flow Rate 4.0 05/16/18 07:44 O2 Delivery Nasal Cannula O2 Flow Rate 4.0 Intake and Output 05/15/18 05/15/18 05/16/18 15:00 23:00 07:00 Intake Total 100 ml Balance 100 ml LITTLE LUQUE MD May 16, 2018 10:53
[2018-05-16 11:42] VITALS: BP 133/76
--- NOTE | 2018-05-16 11:43 | HP ---
ADMIT DATE: 05/16/2018 CHIEF COMPLAINT: Weakness. HISTORY OF PRESENT ILLNESS: The patient is a 63-year-old female with a history of right hemiplegia from a previous CVA. She was brought to the Emergency Room via ambulance with the above complaint. The patient reports that she suddenly felt very weak at home when she was getting up to use the toilet. Her right side felt much weaker than is usual for her. Apparently, her partner noticed this also and she was brought to the Emergency Room with the concern for possible new CVA. Initial evaluation in the Emergency Room showed the patient to be hypoglycemic and mildly hypotensive. CT of the head without contrast was unremarkable for acute findings. Initial concern was for possible pneumonia and she was given one dose of medication for this and admitted for further care. PAST MEDICAL HISTORY: Previous CVA with right hemiplegia, diabetes mellitus type 2, insulin-dependent, hypertension, chronic venous insufficiency, depression. PAST SURGICAL HISTORY: ТАТЬЯНА, appendectomy, cholecystectomy and back surgery. ALLERGIES: THE PATIENT IS ALLERGIC OR INTOLERANT TO ASPIRIN. HOME MEDICATIONS: This list is taken from the office chart: Amlodipine 5 mg daily, atorvastatin 40 mg daily, Wellbutrin-XL 150 mg daily, clonidine 0.2 mg t.i.d., Plavix 75 mg daily, Flexeril 10 mg at bedtime, Cymbalta 60 mg daily, furosemide 40 mg daily, gabapentin 100 mg at bedtime, hydrochlorothiazide 12.5 mg daily, NovoLog insulin 55 units t.i.d. a.c., Toujeo insulin 65 units b.i.d. These doses were recently increased by Dr. Dimas after lab showed an A1c of 9.7. Loratadine 10 mg daily, losartan 100 mg daily, metformin 500 mg b.i.d., metoprolol tartrate 50 mg b.i.d., potassium 10 mEq daily, Detrol-LA 4 mg daily. FAMILY HISTORY: Noncontributory. SOCIAL HISTORY: The patient is disabled. She lives with a boyfriend who provides her care at home. She has a long smoking history, but quit smoking cigarettes about 10 years ago. She does not drink alcohol to excess. REVIEW OF SYSTEMS: The patient denies fever or chills. She denies chest pain or palpitations. She reports a cough for the last several weeks, which has been dry. She denies any coughing while eating or difficulty swallowing her food. She has already received her flu shot this fall. She denies abdominal pain, nausea or vomiting. She has had a decreased appetite recently due to some feelings of malaise. She denies dysuria or increased urinary frequency. She appears to be continent of urine. She has some chronic swelling in her legs, which does not seem different to her. PHYSICAL EXAMINATION: GENERAL: The patient is alert and oriented x 3, lying flat in bed and breathing comfortably on oxygen per nasal cannula. HEENT: PERRL, EOMI, sclerae clear. Oropharynx: Mucous membranes moist. NECK: Supple, without lymphadenopathy. CHEST: Breath sounds distant throughout, but no wheezes heard. No cough during exam. HEART: Regular rhythm. ABDOMEN: Soft, nontender, normoactive bowel sounds are present. EXTREMITIES: Bilateral lower extremities show mild chronic edema. There is mild diffuse erythema on the left lower extremity with a scabbed lesion present. No induration or exudate. ASSESSMENT AND PLAN: 1. Weakness on the right side. The patient has a history of cerebrovascular accident with right hemiplegia, but her symptoms apparently worsened yesterday. An MRI of the brain has been ordered for further evaluation. We will continue her Plavix. Speech Therapy for bedside swallow evaluation has also been ordered. We will also have PT and OT to work with her. 2. Probable urinary tract infection. The patient's urine had 11-20 wbc's with no squamous cells present. She does not have any urinary symptoms. Rocephin has been started and we will continue this. Urine and blood cultures are pending. 3. Elevated troponin. The patient does not complain of any chest pain and has no history of coronary artery disease or congestive heart failure; however, serial troponins were ordered and have shown an upward trend with the latest one being 0.3. The patient has been seen by Cardiology on previous hospitalizations. An echocardiogram in September showed a preserved ejection fraction, but was technically difficult. The patient did have a negative stress test in 2014. We will consult Cardiology due to the upward trend of her troponin, although she appears to be without other symptoms. 4. Diabetes mellitus type 2 with hypoglycemia. The patient's blood sugars were low at admission, probably due to decreased oral intake. Sliding scale insulin has been ordered. We will resume her home insulins when her p.o. intake improves. 5. Cough with hypoxia. Chest x-ray at admission was clear. There were no wheezes on exam. The patient could have some underlying lung disease due to her long smoking history. We will try and nebulize breathing treatments to see if this improves her symptoms and continue oxygen as needed. 6. Acute renal failure. The patient's BUN and creatinine were elevated at admission. Her baseline creatinine was 0.74 in the office in March. We will continue IV fluids for 24 hours and then recheck lab. Encourage p.o. as tolerated. 7. Hypertension. The patient's blood pressure was quite low at admission, but is already trending upward. We will resume some of her home medications and follow. 8. Depression. This appears stable. Continue home medications. LITTLE LUQUE MD DR: ADELINA/alan JOB#: [id number] / [id number] KELSI
[2018-05-16] MEDS: INSULIN LISPRO 300 UNITS/3 ML INSULN.PEN. SQ SCH ×2 (11:48→17:00)
[2018-05-16] MEDS: ALBUTEROL SULFATE 2.5 MG/3 ML NEBU. NEB SCH ×3 (12:20→19:02)
[2018-05-16] MEDS: POTASSIUM CHLORIDE 10 MEQ TABLET.ER. PO SCH (12:56)
[2018-05-16] MEDS: CETIRIZINE HCL 10 MG TABLET. PO SCH (12:56)
[2018-05-16] MEDS: buPROPion XL 150 MG TAB.ER.24H. PO SCH (12:56)
[2018-05-16] MEDS: CLOPIDOGREL BISULFATE 75 MG TABLET PO SCH (12:56)
[2018-05-16] MEDS: METOPROLOL TART IMMED RELEASE 50 MG TABLET. PO SCH ×2 (12:57→20:39)
[2018-05-16] MEDS: cloNIDine HCL 0.2 MG TABLET PO SCH ×2 (12:57→20:40)
[2018-05-16] MEDS: amLODIPine BESYLATE 5 MG TABLET PO SCH (12:57)
[2018-05-16] MEDS: DULoxetine HCL 30 MG CAPSULE.DR PO SCH (12:57)
[2018-05-16] MEDS: OXYBUTYNIN CHLORIDE 5 MG TABLET PO SCH ×2 (13:02→20:40)
[2018-05-16] MEDS: LACTOBACILLUS RHAMNOSUS GG 1 CAPSULE. PO SCH ×2 (13:02→20:40)
[2018-05-16] MEDS: IV NORMAL SALINE 1000ML BAG 1,000 ML IV SCH ×2 (13:44→23:12)
[2018-05-16] MEDS ORDERED: ACETAMINOPHEN 500 MG TABLET PO PRN (13:45)
--- NOTE | 2018-05-16 14:34 | PDOC ---
Provider Note Provider Note Full note dictated. Patient has elevated troponin and non-specific weakness. No EKG changes. No clear anginal pain Although she has no clear symptoms or EKG changes, it is unclear why her troponin is elevated. No obvious precipitants such has hypertension or HF ( normal BNP this admission) is noted. Labile blood sugars and hypotension may be the possible causes. Would plan for ischemic evaluation with a nuclear stress in a.m. and if negative , could then DC safely on current medical therapy. If nuclear stress test with large ischemia, then will need to discuss cath etc in the setting of her JOAQUIN. Supportive care. Thanks. BLANKA CASTILLO MD May 16, 2018 14:34
--- NOTE | 2018-05-16 14:48 | CONS ---
DATE OF CONSULTATION: 05/16/2018 REASON FOR CONSULTATION: Elevated troponin. HISTORY OF PRESENT ILLNESS: The patient is a 63-year-old woman who presents to the hospital in the setting of weakness. She has multiple cardiovascular comorbidities as noted below. She denies any specific cardiac symptoms such as chest pain, but does have chronic exertional dyspnea related to her morbid obesity and functional incapacitation from her previous stroke. She has not had any palpitations or syncope. In the ED, she was evaluated for any new neurologic issues and this was unremarkable. For unclear reasons, troponin was drawn and this was elevated and due to persistent elevation, Cardiology consult was called. PAST MEDICAL HISTORY: 1. Previous history of cerebrovascular accident with right hemiplegia. 2. Diabetes mellitus type 2 with labile blood sugars. 3. Hypertension. 4. Chronic venous insufficiency. 5. Chronic kidney disease. 6. Anemia of chronic disease. 7. Presumed history of diastolic heart failure. SOCIAL HISTORY: The patient denies any alcohol, tobacco or illicit drug use. ALLERGIES: She is intolerant to STATIN therapy, the allergy is unclear. CURRENT CARDIAC MEDICATIONS: As follows: 1. Atorvastatin 40 mg daily. 2. Metoprolol 50 mg p.o. b.i.d. 3. Plavix 75 mg daily. 4. Clonidine 0.2 mg p.o. t.i.d. 5. Amlodipine 5 mg daily. REVIEW OF SYSTEMS: Negative for 10 of 14 systems reviewed, unless otherwise mentioned above in HPI. PHYSICAL EXAMINATION: VITAL SIGNS: Afebrile, 71, 20, 133/76, 99% on 3 liters nasal cannula. GENERAL: She is alert and oriented, but appears to be fatigued. HEAD AND NECK: Unremarkable except for a thick neck. Neck veins are difficult to visualize. CARDIAC: Regular rate and rhythm without any obvious murmurs, rubs or gallops. LUNGS: With decreased breath sounds bilaterally. ABDOMEN: Obese, protuberant, nontender, nondistended. EXTREMITIES: Chronic bilateral venous stasis changes in the lower extremities with 2+ radial and 1+ dorsalis pedis pulses. NEUROLOGIC: She has diffuse lower extremity weakness and right-sided hemiplegia is noted. DIAGNOSTIC STUDIES: Hemoglobin is low at 10.0 with a platelet count of 351. Creatinine is elevated at 1.6. Troponin elevated at 0.304, up from 0.115. Chest x-ray demonstrates no acute abnormality. Echocardiogram dated 11/24/2017 demonstrates normal LV systolic function without any significant wall motion abnormalities. EKG demonstrates sinus rhythm with nonspecific ST-T wave changes. IMPRESSION: 1. Weakness of unclear etiology, likely due to labile blood sugars: Differential diagnosis is broad given her prior history of neurologic issues. Current workup ongoing. 2. Elevated troponin: Likely related to multiple cardiac comorbidities, although she does not have any obvious reasons for elevated troponin except for her acute kidney injury. Review of her blood pressures does not reveal any significant hypertensive episodes, although she has had some bouts of hypotension, which could cause some elevated troponins. She also appears to be in mild acute on chronic decompensated heart failure, which could have precipitated her troponin elevation. Nonetheless, she does not appear to have any significant symptoms suggestive of cardiac disease and she does not have any significant EKG changes. 3. Cerebrovascular accident, currently on Plavix. 4. Acute kidney injury. RECOMMENDATIONS: Due to the patient's multiple risk factors with her stroke, diabetes, it is unclear if she is having any episodes of silent ischemia. Given her acute kidney injury, she would not be a great candidate for any ischemic invasive evaluation, but it would be appropriate to consider noninvasive ischemic evaluation in light of the fact that she has been a chronic diabetic. If she has minimal ischemia on her stress testing, then could continue medical therapy with Plavix and antihypertensives as well as statin therapy. If she has significant ischemia, I could at that time consider further invasive evaluation. Plan for a nuclear stress test tomorrow morning. Thank you for this consultation. BLANKA CASTILLO MD DR: OMAR/alan JOB#: [id number] / [id number]
[2018-05-16 15:35] VITALS: BP 139/69
--- NOTE | 2018-05-16 16:00 | RAD ---
EXAM: Brain MRI without contrast. HISTORY: Right-sided hemiplegia. TECHNIQUE: Multiplanar, multisequence magnetic resonance imaging of the brain was performed without contrast. COMPARISON: MRI dated 07/16/2012. FINDINGS: There is no restricted diffusion to suggest acute or subacute infarction. There is a focus of susceptibility effect within the left cerebellum likely due to chronic hemorrhage. There is also suspected chronic hemorrhage associated with a chronic lacunar infarct within the left thalamus and left cerebral peduncle. There are chronic infarcts within the bilateral occipital lobes and posterior right temporal lobe. There is also a chronic lacunar infarct within the left caudate nucleus and left centrum semiovale. There are scattered areas of signal change throughout the cerebral white matter and guerda, likely due to chronic small vessel disease. There is cerebral volume loss. There is evidence of lens surgery. There is paranasal sinus because of thickening with small mucous retention cysts. The mastoid air cells are clear. There are normal flow voids within the cerebral vessels. IMPRESSION: 1. No acute intracranial finding. 2. Chronic infarcts within the bilateral occipital lobes and posterior right temporal lobe, left caudate nucleus, left centrum semiovale, and left thalamus and cerebral peduncle. The latter of these infarcts associated with chronic microhemorrhage. 3. Extensive signal change throughout the cerebral white matter and guerda, likely due to chronic small vessel disease. 4. Cerebral atrophy. Electronically signed by: Kori Mckeon MD (05/16/2018 3:56 PM) [facility]
[2018-05-16 19:00] VITALS: BP 151/85
[2018-05-16] MEDS: CYCLOBENZAPRINE 10 MG TABLET. PO SCH (20:39)
[2018-05-16] MEDS: ATORVASTATIN CALCIUM 40 MG TABLET. PO SCH (20:40)
[2018-05-16] MEDS: GABAPENTIN 100 MG CAPSULE. PO SCH (20:40)
[2018-05-16 23:00] VITALS: BP 142/67
[2018-05-17] MEDS ORDERED: cefTRIAXone IV Push 1 GM VIAL. IVP ONE
[2018-05-17 02:34] VITALS: BP 169/75
[2018-05-17 05:05] LABS: HEMATOCRIT 31.6 % (36.0-47.0); HEMOGLOBIN 10.1 g/dL (12.0-15.5); RED BLOOD COUNT 3.92 x10^6/uL (3.50-5.40); RED CELL DISTRIBUTION WIDTH 16.6 % (11.5-14.5); WHITE BLOOD COUNT 8.1 x10^3/uL (4.0-11.0)
[2018-05-17 05:07] LABS: CALCIUM 8.9 mg/dL (8.5-10.1); GFR 67.5; POTASSIUM 3.6 mmol/L (3.5-5.1)
[2018-05-17 07:00] VITALS: BP 143/74
[2018-05-17] MEDS: ALBUTEROL SULFATE 2.5 MG/3 ML NEBU. NEB SCH ×4 (07:26→19:20)
[2018-05-17] MEDS: POTASSIUM CHLORIDE 10 MEQ TABLET.ER. PO SCH (08:00)
[2018-05-17] MEDS: INSULIN LISPRO 300 UNITS/3 ML INSULN.PEN. SQ SCH ×3 (08:00→17:31)
--- NOTE | 2018-05-17 08:32 | EKG ---
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
[2018-05-17] MEDS ORDERED: REGADENOSON 0.4 MG/5 ML DISP.SYRIN. IV ONE (08:45)
[2018-05-17] MEDS: amLODIPine BESYLATE 5 MG TABLET PO SCH (09:00)
[2018-05-17] MEDS: IV NORMAL SALINE 1000ML BAG 1,000 ML IV SCH (09:45)
[2018-05-17] MEDS: buPROPion XL 150 MG TAB.ER.24H. PO SCH (10:57)
[2018-05-17] MEDS: LACTOBACILLUS RHAMNOSUS GG 1 CAPSULE. PO SCH ×2 (10:57→20:57)
[2018-05-17] MEDS: CLOPIDOGREL BISULFATE 75 MG TABLET PO SCH (10:58)
[2018-05-17] MEDS: CETIRIZINE HCL 10 MG TABLET. PO SCH (10:58)
[2018-05-17] MEDS: METOPROLOL TART IMMED RELEASE 50 MG TABLET. PO SCH ×2 (10:58→20:57)
[2018-05-17] MEDS: DULoxetine HCL 30 MG CAPSULE.DR PO SCH (10:58)
[2018-05-17] MEDS: OXYBUTYNIN CHLORIDE 5 MG TABLET PO SCH ×3 (10:59→20:57)
[2018-05-17] MEDS: cloNIDine HCL 0.2 MG TABLET PO SCH ×3 (10:59→20:57)
[2018-05-17 11:41] VITALS: BP 177/51
--- NOTE | 2018-05-17 12:26 | RAD ---
MR#: [id number] Date of Study: 05/17/2018 Ordering Physician: BLANKA STARR, Referring Physician: JONY BLEDSOE Tech: JARETT Garcia APPROVED REPORT Test Type: Pharmacological Stress Nurse/Tech: Nu Keating RN Test Indications: Weakness,shortness of breath, chest pain Cardiac History: Hypertension, Diabetes,smoker, previous stent,CVA Medications: See Electronic Medical Record Medical History: See Electronic Medical Record Resting ECG: SR Resting Heart Rate: 77 bpm Resting Blood Pressure: 177/74mmHg Pretest Chest Pain: No chest pain Nurse/Tech Notes S1,S2 slightly muffled/distant. Lungs are diminished throughout and patient has generalized edema. Pa tient wearing oxygen at 2L. Consent: The procedure was explained to the patient in lay terms. Informed consent was witnessed. Chadd eout was entered into [employer]. History and Stress Test performed by JARETT Garcia Pharm. Details Pharmacologic stress testing was performed using 0.4mg per 5ml of regadenoson given intravenously ove r 7-10 seconds. Stress Symptoms Dyspnea POST EXERCISE Reason for Termination: Infusion complete Target HR: No Max HR: 95 bpm Max Blood Pressure: 193/76mmHg Blood Pressure response to exercise: Normal blood pressure response during stress. Heart Rate response to exercise: WNL Chest Pain: No. Arrhythmia: No. ST Change: No. INTERPRETATION Stress EKG Conclusion: No evidence of stress induced EKG changes Imaging Protocol IMAGE PROTOCOL: Stress Tc-99m/rest Tc-99m 2 days Rest: Stress: Viability: Radiopharm.Tc99m Sestamibi Dose33.3mCi Duration 13min. Img Date 05/17/2018 Inj-Img Pnpl36mgf. Stress Admin Site: IV - Right AntecubitalAdministrator: JARETT Garcia STRESS DATA End Diast. Vol.97.0mlAv. Heart Rate86.0bpm End Syst. Vol.30.0mlCO Index BSA0.0L/min Myocardial Wrjt886.0gEject. Veaoijhj56.0% Stress Rates Pk. Fill Rate2.17EDV/secLVtime Pk. Fill 59.29msec Pk. Empty Rate2.74ESV/secLVtime Pk. Tmmlm250.23msec /3 Pk. Fill1.58EDV/sec Stress Scores Regional WT2.00Summed WT13.00 Regional WM0.00Summed WM7.00 LV Perfusion Normal perfusion at stress. Wall Motion Normal wall motion. EF > 60% LV Perf. Quant 17 Seg. SSS0.00 Stress Defect Extent (% LAD)0.00Rest Defect Extent (% LAD)Rev. Defect Extent (% LAD)0.00 Stress Defect Extent (% LCX) 10.00Rest Defect Extent (% LCX)Rev. Defect Extent (% LCX)0.00 Stress Defect Extent (% RCA)0.00Rest Defect Extent (% RCA)Rev. Defect Extent (% RCA)0.00 Stress Defect Extent (% FADIA)1.70Rest Defect Extent (% FADIA)Rev. Defect Extent (% FADIA)0.00 Other Information Quality:Good Risk Assessment: Low Risk Conclusion 1. No evidence of EKG changes with stress testing. 2. Normal perfusion at stress. Resting images not performed. 3. Low risk study. 4. EF > 60%. Signed by : Blanka Starr, Electronically Approved : 05/17/2018 12:24:20
--- NOTE | 2018-05-17 13:40 | PDOC ---
PROGRESS NOTES Subjective Subjective Patient states she feels better. Cough better with nebs. Doesn't feel as weak on the right side as she did at admission. Objective Objective Vital Signs Date Time Temp Pulse Resp B/P (MAP) Pulse Ox O2 Delivery O2 Flow Rate FiO2 05/17/18 11:53 93 Nasal Cannula 1.0 05/17/18 11:41 98.7 88 20 177/51 (93) 98.7 Intake and Output 05/17/18 07:00 Intake Total 1420 ml Output Total 0 ml Balance 1420 ml Intake Oral 420 ml IV Total 1000 ml Output Urine Total 0 ml # Voids 3 Physical Exam Abdomen: Normal bowel sounds, Soft, No tenderness Heart: Regular rate Extremities: Other (mild chronic edema bilateral LE's, scant erythema on left) General: Alert, Oriented X3, No acute distress Lungs: Other (BS distant throughout but otherwise CTA) Assessment Assessment Problems Medical Problems: (1) Acute kidney injury Status: Acute (2) Hypoglycemia Status: Acute (3) Pneumonia Status: Acute (4) Troponin level elevated Status: Acute Plan Plan of Care 1. 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 Symptoms seem better to patient today. Continue therapies. 2. probably UTI - continue Rocephin, await culture report. 3. elevated troponin - seen by Cardiology and had stress test today which was low probability and showed preserved EF of 60%. 4. HTN - hypotension resolved, now BP mildly elevated. Continue present meds and resume the Losartan that she usually takes also. 5. acute renal insufficiency - resolved with IVF, lab good. Fluids d/c, taking po well. 6. DM2 - controlled, continue insulins. 7. cough with hypoxia - improved with Albuterol nebs, continue. Should be able to wean down O2 also. Comment Review of Relevant I have reviewed the following items emir (where applicable) has been applied. Labs Laboratory Tests Test 05/16/18 00:25 05/16/18 01:40 05/16/18 01:55 05/16/18 02:05 Glucose (Fingerstick) 96 mg/dL (70-99) 76 mg/dL (70-99) White Blood Count 15.7 x10^3/uL (4.0-11.0) Red Blood Count 3.94 x10^6/uL (3.50-5.40) Hemoglobin 10.0 g/dL (12.0-15.5) Hematocrit 31.8 % (36.0-47.0) Mean Corpuscular Volume 81 fL (79-100) Mean Corpuscular Hemoglobin 26 pg (25-35) Mean Corpuscular Hemoglobin Concent 32 g/dL (31-37) Red Cell Distribution Width 16.7 % (11.5-14.5) Platelet Count 351 x10^3/uL (140-400) Neutrophils (%) (Auto) 73 % (31-73) Lymphocytes (%) (Auto) 16 % (24-48) Monocytes (%) (Auto) 9 % (0-9) Eosinophils (%) (Auto) 1 % (0-3) Basophils (%) (Auto) 1 % (0-3) Neutrophils # (Auto) 11.5 x10^3uL (1.8-7.7) Lymphocytes # (Auto) 2.5 x10^3/uL (1.0-4.8) Monocytes # (Auto) 1.3 x10^3/uL (0.0-1.1) Eosinophils # (Auto) 0.2 x10^3/uL (0.0-0.7) Basophils # (Auto) 0.1 x10^3/uL (0.0-0.2) Sodium Level 142 mmol/L (136-145) Potassium Level 3.3 mmol/L (3.5-5.1) Chloride Level 101 mmol/L (98-107) Carbon Dioxide Level 30 mmol/L (21-32) Anion Gap 11 (6-14) Blood Urea Nitrogen 30 mg/dL (7-20) Creatinine 1.6 mg/dL (0.6-1.0) Estimated GFR (Cockcroft-Gault) 39.3 BUN/Creatinine Ratio 19 (6-20) Glucose Level 73 mg/dL (70-99) Lactic Acid Level 2.2 mmol/L (0.4-2.0) Calcium Level 9.0 mg/dL (8.5-10.1) Total Bilirubin 0.2 mg/dL (0.2-1.0) Aspartate Amino Transf (AST/SGOT) 25 U/L (15-37) Alanine Aminotransferase (ALT/SGPT) 29 U/L (14-59) Alkaline Phosphatase 108 U/L (46-116) Creatine Kinase 140 U/L (26-192) Troponin I Quantitative 0.115 ng/mL (0.000-0.055) FF-Owp-U-Type Natriuretic Peptide 46 pg/mL (0-124) Total Protein 7.5 g/dL (6.4-8.2) Albumin 2.9 g/dL (3.4-5.0) Albumin/Globulin Ratio 0.6 (1.0-1.7) Ethyl Alcohol Level < 10 mg/dL (0-10) O2 Saturation 92 % (92-99) Arterial Blood pH 7.41 (7.35-7.45) Arterial Blood pCO2 at Patient Temp 42 mmHg (35-46) Arterial Blood pO2 at Patient Temp 69 mmHg (65-108) Arterial Blood HCO3 26 mmol/L (21-28) Arterial Blood Base Excess 2 mmol/L (-3-3) Test 05/16/18 02:10 05/16/18 02:58 05/16/18 03:28 05/16/18 05:54 Urine Collection Type U cath Urine Color Yellow Urine Clarity Clear Urine pH 5.5 Urine Specific [place] 1.020 Urine Protein 100 mg/dL (NEG-TRACE) Urine Glucose (UA) Negative mg/dL (NEG) Urine Ketones (Stick) Negative mg/dL (NEG) Urine Blood Negative (NEG) Urine Nitrite Negative (NEG) Urine Bilirubin Negative (NEG) Urine Urobilinogen Dipstick 0.2 mg/dL (0.2 mg/dL) Urine Leukocyte Esterase Moderate (NEG) Urine RBC Rare /HPF (0-2) Urine WBC 11-20 /HPF (0-4) Urine Squamous Epithelial Cells None /LPF Urine Bacteria Many /HPF (0-FEW) Urine Hyaline Casts Many /HPF Urine Mucus Mod /LPF Glucose (Fingerstick) 35 mg/dL (70-99) 162 mg/dL (70-99) 108 mg/dL (70-99) Test 05/16/18 06:30 05/16/18 07:56 05/16/18 08:26 05/16/18 08:45 Lactic Acid Level 1.7 mmol/L (0.4-2.0) Troponin I Quantitative 0.269 ng/mL (0.000-0.055) 0.304 ng/mL (0.000-0.055) Glucose (Fingerstick) 56 mg/dL (70-99) 139 mg/dL (70-99) Test 05/16/18 09:56 05/16/18 11:33 05/16/18 11:54 05/16/18 14:00 Glucose (Fingerstick) 98 mg/dL (70-99) 32 mg/dL (70-99) 111 mg/dL (70-99) 155 mg/dL (70-99) Test 05/16/18 16:05 05/16/18 20:22 05/17/18 03:28 05/17/18 04:15 Glucose (Fingerstick) 166 mg/dL (70-99) 130 mg/dL (70-99) 98 mg/dL (70-99) White Blood Count 8.1 x10^3/uL (4.0-11.0) Red Blood Count 3.92 x10^6/uL (3.50-5.40) Hemoglobin 10.1 g/dL (12.0-15.5) Hematocrit 31.6 % (36.0-47.0) Mean Corpuscular Volume 81 fL (79-100) Mean Corpuscular Hemoglobin 26 pg (25-35) Mean Corpuscular Hemoglobin Concent 32 g/dL (31-37) Red Cell Distribution Width 16.6 % (11.5-14.5) Platelet Count 315 x10^3/uL (140-400) Sodium Level 143 mmol/L (136-145) Potassium Level 3.6 mmol/L (3.5-5.1) Chloride Level 106 mmol/L (98-107) Carbon Dioxide Level 31 mmol/L (21-32) Anion Gap 6 (6-14) Blood Urea Nitrogen 15 mg/dL (7-20) Creatinine 1.0 mg/dL (0.6-1.0) Estimated GFR (Cockcroft-Gault) 67.5 Glucose Level 94 mg/dL (70-99) Calcium Level 8.9 mg/dL (8.5-10.1) Test 05/17/18 07:18 05/17/18 11:54 Glucose (Fingerstick) 90 mg/dL (70-99) 200 mg/dL (70-99) Laboratory Tests Test 05/16/18 14:00 05/16/18 16:05 05/16/18 20:22 05/17/18 03:28 Glucose (Fingerstick) 155 mg/dL (70-99) 166 mg/dL (70-99) 130 mg/dL (70-99) 98 mg/dL (70-99) Test 05/17/18 04:15 05/17/18 07:18 05/17/18 11:54 White Blood Count 8.1 x10^3/uL (4.0-11.0) Red Blood Count 3.92 x10^6/uL (3.50-5.40) Hemoglobin 10.1 g/dL (12.0-15.5) Hematocrit 31.6 % (36.0-47.0) Mean Corpuscular Volume 81 fL (79-100) Mean Corpuscular Hemoglobin 26 pg (25-35) Mean Corpuscular Hemoglobin Concent 32 g/dL (31-37) Red Cell Distribution Width 16.6 % (11.5-14.5) Platelet Count 315 x10^3/uL (140-400) Sodium Level 143 mmol/L (136-145) Potassium Level 3.6 mmol/L (3.5-5.1) Chloride Level 106 mmol/L (98-107) Carbon Dioxide Level 31 mmol/L (21-32) Anion Gap 6 (6-14) Blood Urea Nitrogen 15 mg/dL (7-20) Creatinine 1.0 mg/dL (0.6-1.0) Estimated GFR (Cockcroft-Gault) 67.5 Glucose Level 94 mg/dL (70-99) Calcium Level 8.9 mg/dL (8.5-10.1) Glucose (Fingerstick) 90 mg/dL (70-99) 200 mg/dL (70-99) Microbiology 05/16/18 Blood Culture - Preliminary, Resulted NO GROWTH AFTER 1 DAY Medications Current Medications Clopidogrel Bisulfate (Plavix) 75 mg 1X ONCE PO ; Start 05/16/18 at 02:30; Stop 05/16/18 at 02:31; Status DC Ceftriaxone Sodium 50 ml @ 100 mls/hr 1X ONCE IV ; Start 05/16/18 at 02:15; Stop 05/16/18 at 02:44; Status UNV Doxycycline Hyclate 100 mg/ Dextrose 100 ml @ 50 mls/hr 1X ONCE IV Last administered on 05/16/18at 03:43; Start 05/16/18 at 02:45; Stop 05/16/18 at 04:44 ; Status DC Ceftriaxone Sodium (Rocephin) 1 gm ONCE ONCE IVP Last administered on at 02:57; Start 05/16/18 at 02:30; Stop 05/16/18 at 02:31; Status DC Potassium Chloride/Dextrose/ Sod Cl 1,000 ml @ 100 mls/hr 1X ONCE IV Last administered on 05/16/18at 02:59; Start 05/16/18 at 03:00; Stop 05/16/18 at 12:59 ; Status DC Aspirin (Aspirin) 300 mg 1X ONCE NC Last administered on 05/16/18at 02:58; Start 05/16/18 at 02:45; Stop 05/16/18 at 02:53; Status DC Sodium Chloride 1,000 ml @ 1,000 mls/hr 1X ONCE IV Last administered on at 03:42; Start 05/16/18 at 03:00; Stop 05/16/18 at 03:59; Status DC Dextrose (Dextrose 50%-Water Syringe) 25 gm 1X ONCE IV Last administered on at 03:03; Start 05/16/18 at 03:15; Stop 05/16/18 at 03:16; Status DC Dextrose (Dextrose 50%-Water Syringe) 25 gm STK-MED ONCE IV ; Start 05/16/18 at 08:02; Stop 05/16/18 at 08:03; Status DC Insulin Human Lispro (HumaLOG) 0-9 UNITS TIDWMEALS SQ ; Start 05/16/18 at 12:00 Dextrose (Dextrose 50%-Water Syringe) 12.5 gm PRN Q15MIN PRN IV SEE COMMENTS Last administered on 05/16/18at 11:39; Start 05/16/18 at 10:30 Ceftriaxone Sodium 50 ml @ 100 mls/hr 1X ONCE IV ; Start 05/17/18 at 00:00; Stop 05/17/18 at 00:29; Status UNV Ceftriaxone Sodium (Rocephin) 1 gm 1X ONCE IVP Last administered on 05/16/18at 23:12; Start 05/17/18 at 00:00; Stop 05/17/18 at 00:01; Status DC Amlodipine Besylate (Norvasc) 5 mg DAILY PO Last administered on 05/17/18at 09: 00; Start 05/16/18 at 12:00 Atorvastatin Calcium (Lipitor) 40 mg QHS PO Last administered on 05/16/18at 20: 40; Start 05/16/18 at 21:00 Bupropion HCl (Wellbutrin Xl) 150 mg DAILY PO Last administered on 05/17/18 10 :57; Start 05/16/18 at 12:00 Clonidine HCl (Catapres) 0.2 mg TID PO Last administered on 05/17/18 10:59; Start 05/16/18 at 12:00 Clopidogrel Bisulfate (Plavix) 75 mg DAILY07 PO Last administered on 05/17/18 10:58; Start 05/16/18 at 12:00 Cyclobenzaprine HCl (Flexeril) 10 mg QHS PO Last administered on 05/16/18at 20: 39; Start 05/16/18 at 21:00 Gabapentin (Neurontin) 100 mg HS PO Last administered on 05/16/18at 20:40; Start 05/16/18 at 21:00 Metoprolol Tartrate (Lopressor) 50 mg BID PO Last administered on 05/17/18 10: 58; Start 05/16/18 at 12:00 Duloxetine HCl (Cymbalta) 60 mg DAILY PO Last administered on 05/17/18 10:58; Start 05/16/18 at 12:00 Cetirizine HCl (ZyrTEC) 10 mg DAILY PO Last administered on 05/17/18at 10:58; Start 05/16/18 at 12:00 Potassium Chloride (Klor-Con) 10 meq [id number] PO Last administered on at 08:00; Start 05/16/18 at 12:00 Oxybutynin Chloride (Ditropan) 5 mg [id number] PO Last administered on 05/17/18 13 :14; Start 05/16/18 at 14:00 Albuterol Sulfate (Ventolin Neb Soln) 2.5 mg RTQID NEB Last administered on 05/17/18at 11:52; Start 05/16/18 at 12:00 Lactobacillus Rhamnosus (Culturelle) 1 cap BID PO Last administered on at 10:57; Start 05/16/18 at 12:30 Acetaminophen (Tylenol) 1,000 mg PRN Q6HRS PRN PO PAIN Last administered on 05/16/18at 13:44; Start 05/16/18 at 13:45 Sodium Chloride 1,000 ml @ 100 mls/hr Q10H IV Last administered on 05/16/18at 23:12; Start 05/16/18 at 13:45 Regadenoson (Lexiscan) 0.4 mg 1X ONCE IV Last administered on 05/17/18at 08:45 ; Start 05/17/18 at 08:45; Stop 05/17/18 at 08:46; Status DC Active Scripts Active Tanisha Singhostar (Insulin Glargine,Hum.rec.anlog) 300 Unit/1 Ml Insuln.pen 65 Unit SQ [id number] 30 Days Novolog Flexpen (Insulin Aspart) 100 Unit/1 Ml Insuln.pen 55 Unit SQ TIDAC 30 Days Hydrochlorothiazide Capsule (Hydrochlorothiazide) 12.5 Mg Capsule 12.5 Mg PO DAILY 30 Days Metoprolol Tartrate 50 Mg Tablet 1 Tab PO BID Losartan Potassium 100 Mg Tablet 100 Mg PO DAILY 30 Days [Albuterol Sulfate] 2.5 MG/3 ML Nebu 2.5 Mg NEB PRN Q4HRS PRN Bupropion Xl (Bupropion Hcl) 150 Mg Tab.er.24h 150 Mg PO DAILY 30 Days Detrol La (Tolterodine Tartrate) 4 Mg Cap.er.24h 4 Mg PO DAILY 30 Days Reported Cyclobenzaprine Hcl 10 Mg Tablet 1 Tab PO QHS Amlodipine Besylate 5 Mg Tablet 5 Mg PO DAILY Loratadine 10 Mg Tablet 1 Tab PO DAILY Metformin Hcl 500 Mg Tablet 500 Mg PO BIDWMEALS Furosemide 40 Mg Tablet 1 Tab PO DAILY Cymbalta (Duloxetine Hcl) 60 Mg Capsule.dr 1 Cap PO DAILY Klor-Con 10 (Potassium Chloride) 10 Meq Tablet.er 10 Meq PO DAILY Gabapentin 100 Mg Capsule 100 Mg PO HS [Melatonin] PO HS Clopidogrel (Clopidogrel Bisulfate) 75 Mg Tablet 1 Tab PO DAILY Atorvastatin Calcium 40 Mg Tablet 1 Tab PO QHS Clonidine Hcl 0.2 Mg Tablet 0.2 Mg PO TID Vitals/I & O Vital Sign - Last 24 Hours 05/16/18 05/16/18 05/16/18 05/16/18 15:28 15:35 19:00 19:03 Temp 97.5 98.4 97.5 98.4 Pulse 75 93 Resp 20 18 B/P (MAP) 139/69 (92) 151/85 (107) Pulse Ox 97 91 O2 Delivery Nasal Cannula Nasal Cannula Nasal Cannula Nasal Cannula O2 Flow Rate 2.0 4.0 4.0 2.0 05/16/18 05/16/18 05/16/18 05/16/18 19:05 20:39 20:40 23:00 Temp 98.3 98.3 Pulse 85 85 73 Resp 18 B/P (MAP) 151/83 151/83 142/67 (92) Pulse Ox 99 O2 Delivery Nasal Cannula Nasal Cannula O2 Flow Rate 2.0 4.0 05/17/18 05/17/18 05/17/18 05/17/18 02:34 07:00 07:27 07:30 Temp 98.3 98.4 98.3 98.4 Pulse 72 76 Resp 18 20 B/P (MAP) 169/75 (106) 143/74 (97) Pulse Ox 95 95 93 O2 Delivery Nasal Cannula Nasal Cannula Nasal Cannula Nasal Cannula O2 Flow Rate 4.0 4.0 2.0 2.0 05/17/18 05/17/18 05/17/18 05/17/18 09:00 09:47 10:58 10:59 Pulse 87 87 87 B/P (MAP) 177/51 177/51 177/51 O2 Delivery Nasal Cannula O2 Flow Rate 2.0 05/17/18 05/17/18 11:41 11:53 Temp 98.7 98.7 Pulse 88 Resp 20 B/P (MAP) 177/51 (93) Pulse Ox 95 93 O2 Delivery Nasal Cannula Nasal Cannula O2 Flow Rate 4.0 1.0 Intake and Output 05/16/18 05/16/18 05/17/18 15:00 23:00 07:00 Intake Total 180 ml 1240 ml Output Total 0 ml Balance 0 ml 180 ml 1240 ml LITTLE LUQUE MD May 17, 2018 13:40
[2018-05-17 15:44] VITALS: BP 155/51
[2018-05-17 19:00] VITALS: BP 126/84
[2018-05-17] MEDS: ATORVASTATIN CALCIUM 40 MG TABLET. PO SCH (20:57)
[2018-05-17] MEDS: GABAPENTIN 100 MG CAPSULE. PO SCH (20:57)
[2018-05-17] MEDS: CYCLOBENZAPRINE 10 MG TABLET. PO SCH (20:59)
[2018-05-17] MEDS ORDERED: ZOLPIDEM 5 MG TABLET. PO PRN (21:30)
[2018-05-17 23:00] VITALS: BP 130/79
[2018-05-18 03:00] VITALS: BP 120/72
[2018-05-18] MEDS: CLOPIDOGREL BISULFATE 75 MG TABLET PO SCH (05:52)
[2018-05-18 07:00] VITALS: BP 153/75
[2018-05-18] MEDS: ALBUTEROL SULFATE 2.5 MG/3 ML NEBU. NEB SCH ×4 (07:40→19:32)
[2018-05-18] MEDS: INSULIN LISPRO 300 UNITS/3 ML INSULN.PEN. SQ SCH ×3 (08:00→17:58)
[2018-05-18] MEDS: CETIRIZINE HCL 10 MG TABLET. PO SCH (09:24)
[2018-05-18] MEDS: LOSARTAN POTASSIUM 50 MG TABLET. PO SCH (09:24)
[2018-05-18] MEDS: buPROPion XL 150 MG TAB.ER.24H. PO SCH (09:24)
[2018-05-18] MEDS: cloNIDine HCL 0.2 MG TABLET PO SCH ×3 (09:25→21:06)
[2018-05-18] MEDS: DULoxetine HCL 30 MG CAPSULE.DR PO SCH (09:25)
[2018-05-18] MEDS: METOPROLOL TART IMMED RELEASE 50 MG TABLET. PO SCH ×2 (09:25→21:06)
[2018-05-18] MEDS: OXYBUTYNIN CHLORIDE 5 MG TABLET PO SCH ×3 (09:25→21:05)
[2018-05-18] MEDS: POTASSIUM CHLORIDE 10 MEQ TABLET.ER. PO SCH (09:26)
[2018-05-18] MEDS: amLODIPine BESYLATE 5 MG TABLET PO SCH (09:26)
[2018-05-18] MEDS ORDERED: MAGNESIUM HYDROXIDE 2,400 MG/30 ML ORAL.SUSP. PO ONE (09:30)
[2018-05-18] MEDS ORDERED: MAGNESIUM CITRATE 296 ML SOLUTION. PO ONE (09:30)
[2018-05-18] MEDS: LACTOBACILLUS RHAMNOSUS GG 1 CAPSULE. PO SCH ×2 (10:10→21:05)
[2018-05-18 11:00] VITALS: BP 171/72
[2018-05-18] MEDS ORDERED: CEPH-264 PO (13:16)
--- NOTE | 2018-05-18 13:22 | DISCH ---
DISCHARGE DISCHARGE INFORMATION: DISCHARGE DATE: May 19, 2018 FINAL DIAGNOSIS Problems Medical Problems: (1) Acute kidney injury Status: Acute (2) Hypoglycemia Status: Acute (3) Pneumonia Status: Acute (4) Troponin level elevated Status: Acute CONDITION ON DISCHARGE: Stable CODE STATUS: Code Status: Full SENIOR LIVING: SNF STAY <30 DAYS: Yes POST DISCHARGE ORDERS: ACTIVITY ORDERS: Activity as tolerated WEIGHT BEARING STATUS: Full weight bearing DIET AFTER DISCHARGE: ADA CHECKS AFTER DISCHARGE: CHECKS AFTER DISCHARGE: Check blood sugar, ac/hs TREATMENT/EQUIPMENT ORDERS: ADAPTIVE EQUIPMENT NEEDED: Walker Physical Therapy For: Evalulation/Treatment Occupational Therapy For: Evaluation/Treatment DISCHARGE MEDICATIONS: Home Meds Active Scripts Cephalexin (KEFLEX) 500 Mg Capsule, 2 CAP PO BID for uti, #14 CAP Prov:KEVIN GUERRERO MD 05/18/18 Insulin Glargine,Hum.rec.anlog (Toujeo Solostar) 300 Unit/1 Ml Insuln.pen, 65 UNIT SQ BID76 for dm for 30 Days, EACH Prov:LITTLE LUQUE MD 05/16/18 Insulin Aspart (NOVOLOG FLEXPEN) 100 Unit/1 Ml Insuln.pen, 55 UNIT SQ TIDAC for DM for 30 Days, SYR Prov:LITTLE LUQUE MD 05/16/18 Hydrochlorothiazide (HYDROCHLOROTHIAZIDE CAPSULE ) 12.5 Mg Capsule, 12.5 MG PO DAILY for DIURETIC for 30 Days, #30 CAP 0 Refills Prov:LITTLE LUQUE MD 05/16/18 Metoprolol Tartrate (METOPROLOL TARTRATE) 50 Mg Tablet, 1 TAB PO BID for htn, # 60 TAB 5 Refills Prov:LITTLE LUQUE MD 05/16/18 Losartan Potassium (LOSARTAN POTASSIUM) 100 Mg Tablet, 100 MG PO DAILY for htn for 30 Days, #30 TAB Prov:LITTLE LUQUE MD 05/16/18 [Albuterol Sulfate] 2.5 MG/3 ML NEBU No Conflict Check, 2.5 MG NEB PRN Q4HRS PRN for PRN at night Prov:KEVIN GUERRERO MD 09/30/14 Bupropion Hcl (BUPROPION XL) 150 Mg Tab.er.24h, 150 MG PO DAILY for 30 Days, TAB Prov:KEVIN GUERRERO MD 09/30/14 Tolterodine Tartrate (DETROL LA) 4 Mg Cap.er.24h, 4 MG PO DAILY for 30 Days, TAB Prov:KEVIN GUERRERO MD 09/30/14 Reported Medications Cyclobenzaprine Hcl (CYCLOBENZAPRINE HCL) 10 Mg Tablet, 1 TAB PO QHS, #30 TAB 09/24/17 Amlodipine Besylate (AMLODIPINE BESYLATE) 5 Mg Tablet, 5 MG PO DAILY, TAB 09/24/17 Loratadine (LORATADINE) 10 Mg Tablet, 1 TAB PO DAILY, #30 TAB 5 Refills 09/24/17 Metformin Hcl (METFORMIN HCL) 500 Mg Tablet, 500 MG PO BIDWMEALS for ANTI- DIABETIC, TAB 0 Refills 09/24/17 Furosemide (FUROSEMIDE) 40 Mg Tablet, 1 TAB PO DAILY, #30 TAB 5 Refills 09/24/17 Duloxetine Hcl (CYMBALTA) 60 Mg Capsule.dr, 1 CAP PO DAILY, #90 CAP 3 Refills 09/24/17 Potassium Chloride (Klor-Con 10) 10 Meq Tablet.er, 10 MEQ PO DAILY, TAB.SR 09/24/17 Gabapentin (GABAPENTIN) 100 Mg Capsule, 100 MG PO HS, CAP 09/24/17 [Melatonin] No Conflict Check, PO HS 09/24/14 Clopidogrel Bisulfate (CLOPIDOGREL) 75 Mg Tablet, 1 TAB PO DAILY, #90 TAB 1 Refill 09/24/14 Atorvastatin Calcium (ATORVASTATIN CALCIUM) 40 Mg Tablet, 1 TAB PO QHS, #90 TAB 3 Refills 09/24/14 Clonidine Hcl (CLONIDINE HCL) 0.2 Mg Tablet, 0.2 MG PO TID, TAB 09/24/14 Discontinued Reported Medications Insulin Glargine,Hum.rec.anlog (LANTUS SOLOSTAR) 100 Unit/1 Ml Insuln.pen, 25 UNIT SQ DAILY, #15 ML 3 Refills 09/24/14 Insulin Glargine,Hum.rec.anlog (LANTUS SOLOSTAR) 100 Unit/1 Ml Insuln.pen, 45 UNIT SQ QHS, #15 ML 3 Refills 09/24/14 Valsartan (DIOVAN) 320 Mg Tablet, 1 TAB PO DAILY, #90 TAB 1 Refill 09/24/14 [Amlodipine] No Conflict Check, PO DAILY 09/24/14 Insulin Lispro (HUMALOG) 100 Unit/1 Ml Insuln.pen, 35 UNIT SQ TIDAC, SYR 09/24/14 Discontinued Scripts Prednisone (PREDNISONE ) 10 Mg Tablet, 10 MG PO DAILY, #20 TAB Prov:KEVIN GUERRERO MD 10/04/14 Fluticasone/Salmeterol (ADVAIR 250-50 DISKUS) 1 Puff Puff, 1 PUFF INH BID, #1 INHALER Prov:KEVIN GUERRERO MD 10/04/14 Cephalexin (KEFLEX) 500 Mg Capsule, 2 CAP PO BID, #14 CAP Prov:KEVIN UGERRERO MD 09/30/14 Fluticasone Propionate (FLUTICASONE PROPIONATE NASAL SPRAY) 1 Shellman Shellman, 2 SPRAY NS DAILY for 30 Days, BOT Prov:KEVIN GUERRERO MD 09/30/14 Oxycodone HCl (Roxicodone) 5 Mg Tablet, 5 MG PO PRN Q3HRS PRN for BREAKTHROUGH PAIN for 30 Days Prov:KEVIN GUERRERO MD 09/30/14 Pantoprazole Sodium (PROTONIX) 40 Mg Tablet, 40 MG PO DAILYAC for 30 Days Prov:KEVIN GUERRERO MD 09/30/14 [Promethazine Hcl/Codeine] 5 ML SYRUP No Conflict Check, 5 ML PO PRN Q6HRS PRN for COUGH Prov:KEVIN GUERRERO MD 09/30/14 Zolpidem Tartrate (AMBIEN) 5 Mg Tablet, 5 MG PO PRN QHS PRN for INSOMNIA, MAY REPEAT IN 1HR, #30 Prov:KEVIN GUERRERO MD 09/30/14 KEVIN GUERRERO MD May 18, 2018 13:22
[2018-05-18] MEDS ORDERED: cefTRIAXone IV Push 1 GM VIAL. IVP ONE (14:00)
[2018-05-18 15:00] VITALS: BP 160/73
--- NOTE | 2018-05-18 17:53 | PDOC ---
PROGRESS NOTES Subjective Subjective Patient feeling better. PT/OT recc SNU care. Objective Objective Vital Signs Date Time Temp Pulse Resp B/P (MAP) Pulse Ox O2 Delivery O2 Flow Rate FiO2 05/18/18 15:57 Nasal Cannula 1.0 05/18/18 14:10 70 171/72 05/18/18 11:00 98.4 20 94 98.4 Intake and Output 05/18/18 07:00 Intake Total 300 ml Balance 300 ml Intake Oral 300 ml # Voids 6 Physical Exam Abdomen: Normal bowel sounds Heart: Regular rate Extremities: Other (2+ edema) General: Alert Lungs: Clear to auscultation Assessment Assessment Problems Medical Problems: (1) Acute kidney injury Status: Acute (2) Hypoglycemia Status: Acute (3) Pneumonia Status: Acute (4) Troponin level elevated Status: Acute Sepsis UTI CVA DM2 HTN Plan Plan of Care Continue IV antibx Await sensitivity To SNU in AM continue PT/OT Comment Review of Relevant I have reviewed the following items emir (where applicable) has been applied. Labs Laboratory Tests Test 05/16/18 20:22 05/17/18 03:28 05/17/18 04:15 05/17/18 07:18 Glucose (Fingerstick) 130 mg/dL (70-99) 98 mg/dL (70-99) 90 mg/dL (70-99) White Blood Count 8.1 x10^3/uL (4.0-11.0) Red Blood Count 3.92 x10^6/uL (3.50-5.40) Hemoglobin 10.1 g/dL (12.0-15.5) Hematocrit 31.6 % (36.0-47.0) Mean Corpuscular Volume 81 fL (79-100) Mean Corpuscular Hemoglobin 26 pg (25-35) Mean Corpuscular Hemoglobin Concent 32 g/dL (31-37) Red Cell Distribution Width 16.6 % (11.5-14.5) Platelet Count 315 x10^3/uL (140-400) Sodium Level 143 mmol/L (136-145) Potassium Level 3.6 mmol/L (3.5-5.1) Chloride Level 106 mmol/L (98-107) Carbon Dioxide Level 31 mmol/L (21-32) Anion Gap 6 (6-14) Blood Urea Nitrogen 15 mg/dL (7-20) Creatinine 1.0 mg/dL (0.6-1.0) Estimated GFR (Cockcroft-Gault) 67.5 Glucose Level 94 mg/dL (70-99) Calcium Level 8.9 mg/dL (8.5-10.1) Test 05/17/18 11:54 05/17/18 15:59 05/17/18 20:42 05/18/18 07:46 Glucose (Fingerstick) 200 mg/dL (70-99) 201 mg/dL (70-99) 191 mg/dL (70-99) 148 mg/dL (70-99) Test 05/18/18 11:41 05/18/18 16:57 Glucose (Fingerstick) 242 mg/dL (70-99) 178 mg/dL (70-99) Laboratory Tests Test 05/17/18 20:42 05/18/18 07:46 05/18/18 11:41 05/18/18 16:57 Glucose (Fingerstick) 191 mg/dL (70-99) 148 mg/dL (70-99) 242 mg/dL (70-99) 178 mg/dL (70-99) Microbiology 05/16/18 Blood Culture - Preliminary, Resulted NO GROWTH AFTER 2 DAYS 05/16/18 Urine Culture - Final, Complete 05/16/18 Urine Culture Result 1 (JOHANNA) - Final, Complete 05/16/18 Antimicrobic Susceptibility - Final, Complete Medications Current Medications Clopidogrel Bisulfate (Plavix) 75 mg 1X ONCE PO ; Start 05/16/18 at 02:30; Stop 05/16/18 at 02:31; Status DC Ceftriaxone Sodium 50 ml @ 100 mls/hr 1X ONCE IV ; Start 05/16/18 at 02:15; Stop 05/16/18 at 02:44; Status UNV Doxycycline Hyclate 100 mg/ Dextrose 100 ml @ 50 mls/hr 1X ONCE IV Last administered on 05/16/18at 03:43; Start 05/16/18 at 02:45; Stop 05/16/18 at 04:44 ; Status DC Ceftriaxone Sodium (Rocephin) 1 gm ONCE ONCE IVP Last administered on at 02:57; Start 05/16/18 at 02:30; Stop 05/16/18 at 02:31; Status DC Potassium Chloride/Dextrose/ Sod Cl 1,000 ml @ 100 mls/hr 1X ONCE IV Last administered on 05/16/18at 02:59; Start 05/16/18 at 03:00; Stop 05/16/18 at 12:59 ; Status DC Aspirin (Aspirin) 300 mg 1X ONCE MI Last administered on 05/16/18at 02:58; Start 05/16/18 at 02:45; Stop 05/16/18 at 02:53; Status DC Sodium Chloride 1,000 ml @ 1,000 mls/hr 1X ONCE IV Last administered on at 03:42; Start 05/16/18 at 03:00; Stop 05/16/18 at 03:59; Status DC Dextrose (Dextrose 50%-Water Syringe) 25 gm 1X ONCE IV Last administered on at 03:03; Start 05/16/18 at 03:15; Stop 05/16/18 at 03:16; Status DC Dextrose (Dextrose 50%-Water Syringe) 25 gm STK-MED ONCE IV ; Start 05/16/18 at 08:02; Stop 05/16/18 at 08:03; Status DC Insulin Human Lispro (HumaLOG) 0-9 UNITS TIDWMEALS SQ Last administered on 05/18at 12:07; Start 05/16/18 at 12:00 Dextrose (Dextrose 50%-Water Syringe) 12.5 gm PRN Q15MIN PRN IV SEE COMMENTS Last administered on 05/16/18at 11:39; Start 05/16/18 at 10:30 Ceftriaxone Sodium 50 ml @ 100 mls/hr 1X ONCE IV ; Start 05/17/18 at 00:00; Stop 05/17/18 at 00:29; Status UNV Ceftriaxone Sodium (Rocephin) 1 gm 1X ONCE IVP Last administered on 05/16/18at 23:12; Start 05/17/18 at 00:00; Stop 05/17/18 at 00:01; Status DC Amlodipine Besylate (Norvasc) 5 mg DAILY PO Last administered on 05/18/18at 09: 26; Start 05/16/18 at 12:00 Atorvastatin Calcium (Lipitor) 40 mg QHS PO Last administered on 05/17/18at 20: 57; Start 05/16/18 at 21:00 Bupropion HCl (Wellbutrin Xl) 150 mg DAILY PO Last administered on 05/18/18 09 :24; Start 05/16/18 at 12:00 Clonidine HCl (Catapres) 0.2 mg TID PO Last administered on 05/18/18 14:10; Start 05/16/18 at 12:00 Clopidogrel Bisulfate (Plavix) 75 mg DAILY07 PO Last administered on 05/18/18 05:52; Start 05/16/18 at 12:00 Cyclobenzaprine HCl (Flexeril) 10 mg QHS PO Last administered on 05/17/18 20: 59; Start 05/16/18 at 21:00 Gabapentin (Neurontin) 100 mg HS PO Last administered on 05/17/18 20:57; Start 05/16/18 at 21:00 Metoprolol Tartrate (Lopressor) 50 mg BID PO Last administered on 05/18/18 09: 25; Start 05/16/18 at 12:00 Duloxetine HCl (Cymbalta) 60 mg DAILY PO Last administered on 05/18/18 09:25; Start 05/16/18 at 12:00 Cetirizine HCl (ZyrTEC) 10 mg DAILY PO Last administered on 05/18/18 09:24; Start 05/16/18 at 12:00 Potassium Chloride (Klor-Con) 10 meq [id number] PO Last administered on 09:26; Start 05/16/18 at 12:00 Oxybutynin Chloride (Ditropan) 5 mg [id number] PO Last administered on 05/18/18 14 :10; Start 05/16/18 at 14:00 Albuterol Sulfate (Ventolin Neb Soln) 2.5 mg RTQID NEB Last administered on 15:57; Start 05/16/18 at 12:00 Lactobacillus Rhamnosus (Culturelle) 1 cap BID PO Last administered on 10:10; Start 05/16/18 at 12:30 Acetaminophen (Tylenol) 1,000 mg PRN Q6HRS PRN PO PAIN Last administered on 05/16/18at 13:44; Start 05/16/18 at 13:45 Sodium Chloride 1,000 ml @ 100 mls/hr Q10H IV Last administered on 05/16/18at 23:12; Start 05/16/18 at 13:45; Stop 05/17/18 at 13:31; Status DC Regadenoson (Lexiscan) 0.4 mg 1X ONCE IV Last administered on 05/17/18at 08:45 ; Start 05/17/18 at 08:45; Stop 05/17/18 at 08:46; Status DC Losartan Potassium (Cozaar) 100 mg DAILY PO Last administered on 05/18/18at 09: 24; Start 05/18/18 at 09:00 Zolpidem Tartrate (Ambien) 5 mg PRN QHS PRN PO INSOMNIA Last administered on at 22:05; Start 05/17/18 at 21:30; Stop 05/18/18 at 08:55; Status DC Magnesium Citrate (Citroma) 296 ml 1X ONCE PO Last administered on 05/18/18at 09:26; Start 05/18/18 at 09:30; Stop 05/18/18 at 09:31; Status DC Magnesium Hydroxide (Milk Of Magnesia) 2,400 mg 1X ONCE PO Last administered on 05/18/18at 09:26; Start 05/18/18 at 09:30; Stop 05/18/18 at 09:31; Status DC Ceftriaxone Sodium (Rocephin) 1 gm 1X ONCE IVP Last administered on 05/18/18at 14:12; Start 05/18/18 at 14:00; Stop 05/18/18 at 14:01; Status DC Active Scripts Active Keflex (Cephalexin) 500 Mg Capsule 2 Cap PO BID Touisadora Solostar (Insulin Glargine,Hum.rec.anlog) 300 Unit/1 Ml Insuln.pen 65 Unit SQ [id number] 30 Days Novolog Flexpen (Insulin Aspart) 100 Unit/1 Ml Insuln.pen 55 Unit SQ TIDAC 30 Days Hydrochlorothiazide Capsule (Hydrochlorothiazide) 12.5 Mg Capsule 12.5 Mg PO DAILY 30 Days Metoprolol Tartrate 50 Mg Tablet 1 Tab PO BID Losartan Potassium 100 Mg Tablet 100 Mg PO DAILY 30 Days [Albuterol Sulfate] 2.5 MG/3 ML Nebu 2.5 Mg NEB PRN Q4HRS PRN Bupropion Xl (Bupropion Hcl) 150 Mg Tab.er.24h 150 Mg PO DAILY 30 Days Detrol La (Tolterodine Tartrate) 4 Mg Cap.er.24h 4 Mg PO DAILY 30 Days Reported Cyclobenzaprine Hcl 10 Mg Tablet 1 Tab PO QHS Amlodipine Besylate 5 Mg Tablet 5 Mg PO DAILY Loratadine 10 Mg Tablet 1 Tab PO DAILY Metformin Hcl 500 Mg Tablet 500 Mg PO BIDWMEALS Furosemide 40 Mg Tablet 1 Tab PO DAILY Cymbalta (Duloxetine Hcl) 60 Mg Capsule.dr 1 Cap PO DAILY Klor-Con 10 (Potassium Chloride) 10 Meq Tablet.er 10 Meq PO DAILY Gabapentin 100 Mg Capsule 100 Mg PO HS [Melatonin] PO HS Clopidogrel (Clopidogrel Bisulfate) 75 Mg Tablet 1 Tab PO DAILY Atorvastatin Calcium 40 Mg Tablet 1 Tab PO QHS Clonidine Hcl 0.2 Mg Tablet 0.2 Mg PO TID Vitals/I & O Vital Sign - Last 24 Hours 05/17/18 05/17/18 05/17/18 05/17/18 19:00 19:20 20:00 20:57 Temp 98.2 98.2 Pulse 73 82 Resp 18 B/P (MAP) 126/84 (98) 155/51 Pulse Ox 96 94 O2 Delivery Nasal Cannula Nasal Cannula Nasal Cannula O2 Flow Rate 4.0 1.0 1.0 05/17/18 05/17/18 05/18/18 05/18/18 20:57 23:00 03:00 07:00 Temp 98.0 97.9 98.2 98.0 97.9 98.2 Pulse 82 69 74 Resp 18 18 20 B/P (MAP) 155/51 130/79 (96) 120/72 (88) 153/75 (101) Pulse Ox 95 93 95 O2 Delivery Nasal Cannula Nasal Cannula Nasal Cannula O2 Flow Rate 4.0 4.0 1.0 05/18/18 05/18/18 05/18/18 05/18/18 07:40 08:30 09:24 09:25 Pulse 74 74 B/P (MAP) 153/75 153/75 Pulse Ox 95 O2 Delivery Nasal Cannula Room Air O2 Flow Rate 1.0 05/18/18 05/18/18 05/18/18 05/18/18 09:25 09:26 10:00 11:00 Temp 98.4 98.4 Pulse 74 74 70 Resp 20 B/P (MAP) 153/75 153/75 171/72 (105) Pulse Ox 94 O2 Delivery Nasal Cannula Nasal Cannula O2 Flow Rate 1.0 05/18/18 05/18/18 05/18/18 12:08 14:10 15:57 Pulse 70 B/P (MAP) 171/72 O2 Delivery Nasal Cannula Nasal Cannula O2 Flow Rate 1.0 1.0 Intake and Output 05/17/18 05/17/18 05/18/18 15:00 23:00 07:00 Intake Total 60 ml 240 ml Balance 60 ml 240 ml KEVIN GUERRERO MD May 18, 2018 17:53
[2018-05-18 19:00] VITALS: BP 165/64
[2018-05-18] MEDS: ATORVASTATIN CALCIUM 40 MG TABLET. PO SCH (21:04)
[2018-05-18] MEDS: CYCLOBENZAPRINE 10 MG TABLET. PO SCH (21:05)
[2018-05-18] MEDS: GABAPENTIN 100 MG CAPSULE. PO SCH (21:05)
[2018-05-18] MEDS ORDERED: ZOLPIDEM 5 MG TABLET. PO PRN (22:00)
[2018-05-18 23:00] VITALS: BP 168/83
[2018-05-19 03:00] VITALS: BP 177/78
[2018-05-19 07:00] VITALS: BP 113/75
[2018-05-19] MEDS: ALBUTEROL SULFATE 2.5 MG/3 ML NEBU. NEB SCH ×2 (07:04→11:26)
[2018-05-19] MEDS: CLOPIDOGREL BISULFATE 75 MG TABLET PO SCH (07:26)
[2018-05-19] MEDS: buPROPion XL 150 MG TAB.ER.24H. PO SCH (08:57)
[2018-05-19] MEDS: DULoxetine HCL 30 MG CAPSULE.DR PO SCH (08:57)
[2018-05-19] MEDS: CETIRIZINE HCL 10 MG TABLET. PO SCH (08:57)
[2018-05-19] MEDS: METOPROLOL TART IMMED RELEASE 50 MG TABLET. PO SCH (08:58)
[2018-05-19] MEDS: OXYBUTYNIN CHLORIDE 5 MG TABLET PO SCH (08:58)
[2018-05-19] MEDS: cloNIDine HCL 0.2 MG TABLET PO SCH (08:59)
[2018-05-19] MEDS: LOSARTAN POTASSIUM 50 MG TABLET. PO SCH (08:59)
[2018-05-19] MEDS: LACTOBACILLUS RHAMNOSUS GG 1 CAPSULE. PO SCH (09:00)
[2018-05-19] MEDS: amLODIPine BESYLATE 5 MG TABLET PO SCH (09:00)
[2018-05-19] MEDS: POTASSIUM CHLORIDE 10 MEQ TABLET.ER. PO SCH (09:00)
[2018-05-19] MEDS: INSULIN LISPRO 300 UNITS/3 ML INSULN.PEN. SQ SCH ×2 (09:09→12:30)
[2018-05-19 09:52] VITALS: BP 113/75
--- NOTE | 2018-05-19 10:43 | DS ---
DATE OF DISCHARGE: 05/19/2018 ADMIT DIAGNOSIS: Suspected recurrent cerebrovascular accident. DISMISSAL DIAGNOSES: 1. Sepsis. 2. Urinary tract infection. 3. Chronic cerebrovascular accident exacerbation. 4. Type 2 diabetes. 5. Acute on chronic renal failure. 6. Hypoxia. 7. History of asthma/chronic obstructive pulmonary disease. 8. Elevated troponin level. 9. Hypoglycemia, iatrogenic. 10. Hypotension due to drug treatment and sepsis. 11. Moderate protein malnutrition. 12. Lactic acidosis, resolved. 13. Hypokalemia, resolved. HISTORY OF PRESENT ILLNESS AND HOSPITAL COURSE: This patient is a 63-year-old -[place] female, significantly debilitated by a CVA, using wheelchair for mobility and able to ambulate to a small degree with walker. She came to the hospital with increasing weakness, was found to have acute on chronic renal failure, hypotension, moderate protein malnutrition and elevated troponin levels as well as high lactic acid and white count. Due to constellation of symptoms, the patient was admitted for further evaluation and treatment. She was found to have UTI and treated with IV Rocephin. She improved dramatically with fluids. She underwent cardiology evaluation due to elevated troponin with negative MPI during hospitalization. The patient's nutritional status improved with improved blood pressures and glycemic control. The patient was still debilitated and not at her baseline and Physical Therapy recommended skilled therapy for PT and OT modalities. DISCHARGE MEDICATIONS: She was discharged on the following medicines: Keflex 500 mg 2 pills b.i.d. for one more week, albuterol nebulizer treatments q.4 p.r.n., amlodipine 5 mg daily, atorvastatin 40 mg daily, Wellbutrin 150 mg daily, clonidine 0.2 t.i.d., Plavix 75 mg daily, Flexeril 10 mg at bedtime, Cymbalta 60 mg daily, Lasix 40 mg daily, gabapentin 100 mg at bedtime, hydrochlorothiazide 12.5 mg daily, insulin in the form of NovoLog 55 units with meals, insulin in the form of Toujeo 65 units b.i.d., loratadine 10 mg daily, losartan 100 mg daily, metformin 500 mg b.i.d., metoprolol 50 mg b.i.d., potassium 10 mEq daily, Detrol-LA 40 mg daily KEVIN GUERRERO MD DR: Anthony JOB#: [id number] / [id number]
[2018-05-19 11:00] VITALS: BP 175/66
[2018-05-19 11:54] VITALS: BP 173/67
[2018-05-19 11:55] VITALS: BP 175/66
== END 2018-05-19 13:49 | DRG 871 ==
LOC: ER 00:17 → 5 NORTH 02:59
PROVIDERS: ADMIT Family Medicine; ATTEND Family Medicine
DX: A41.9 Sepsis, unspecified organism (principal); I63.9 Cerebral infarction, unspecified; J18.9 Pneumonia, unspecified organism; N17.0 Acute kidney failure with tubular necrosis; N39.0 Urinary tract infection, site not specified; E44.0 Moderate protein-calorie malnutrition; I13.0 Hypertensive heart and chronic kidney disease with heart failure and stage 1 through stage 4 chronic kidney disease, or unspecified chronic kidney disease; I50.32 Chronic diastolic (congestive) heart failure; I69.351 Hemiplegia and hemiparesis following cerebral infarction affecting right dominant side; Z68.42 Body mass index [BMI] 45.0-49.9, adult; D63.8 Anemia in other chronic diseases classified elsewhere; E66.01 Morbid (severe) obesity due to excess calories; F32.9 Major depressive disorder, single episode, unspecified; I87.2 Venous insufficiency (chronic) (peripheral); N18.9 Chronic kidney disease, unspecified; R09.02 Hypoxemia; E87.6 Hypokalemia; E86.0 Dehydration; E11.22 Type 2 diabetes mellitus with diabetic chronic kidney disease; Z66 Do not resuscitate; E11.649 Type 2 diabetes mellitus with hypoglycemia without coma; I95.2 Hypotension due to drugs; T50.995A Adverse effect of other drugs, medicaments and biological substances, initial encounter; Z79.4 Long term (current) use of insulin; Z87.891 Personal history of nicotine dependence; Z90.49 Acquired absence of other specified parts of digestive tract; Z90.710 Acquired absence of both cervix and uterus; Z99.3 Dependence on wheelchair; Z88.8 Allergy status to other drugs, medicaments and biological substances; Y92.89 Other specified places as the place of occurrence of the external cause
CPT/HCPCS: 36415; 36600; 70450; 70551; 71045; 78452; 80048; 80053; 81001; 82550; 82805; 82962; 83605; 83880; 84484; 85025; 85027; 87040; 87086; 87186; 93005; 93017; 94640; 94760; 96365; 96366; 96374; 96375; 96376; A9500; G0480; J0696; J1815; J2785; J3490; J7030; J7042; J7613; 92610; 97530; 97535; 99285-25

== ENCOUNTER → 2018-08-14 | Outpatient (CLI) | payer MEDICARE ==
[~2018-08-14] MED LIST changes: +AMLO5TAB10 PO; -AMLO5TAB7 PO; +HYDR12.575 PO; +INSU100I17 SQ; +INSU300I SQ; +LOSA100T14 PO; +METO50TA6 PO
== END | disposition home or self-care (01) ==
LOC: PMGWOUND 09:39
PROVIDERS: ATTEND Preventive Medicine Undersea and Hyperbaric Medicine
DX: E11.622 Type 2 diabetes mellitus with other skin ulcer (principal); E11.621 Type 2 diabetes mellitus with foot ulcer; L97.511 Non-pressure chronic ulcer of other part of right foot limited to breakdown of skin; L97.221 Non-pressure chronic ulcer of left calf limited to breakdown of skin; E11.40 Type 2 diabetes mellitus with diabetic neuropathy, unspecified; E11.649 Type 2 diabetes mellitus with hypoglycemia without coma; I13.0 Hypertensive heart and chronic kidney disease with heart failure and stage 1 through stage 4 chronic kidney disease, or unspecified chronic kidney disease; E11.22 Type 2 diabetes mellitus with diabetic chronic kidney disease; N18.9 Chronic kidney disease, unspecified; I50.32 Chronic diastolic (congestive) heart failure; I87.2 Venous insufficiency (chronic) (peripheral); G89.29 Other chronic pain; M54.9 Dorsalgia, unspecified; E78.5 Hyperlipidemia, unspecified; J45.909 Unspecified asthma, uncomplicated; F32.9 Major depressive disorder, single episode, unspecified; K21.9 Gastro-esophageal reflux disease without esophagitis; E66.01 Morbid (severe) obesity due to excess calories; Z68.42 Body mass index [BMI] 45.0-49.9, adult; Z79.4 Long term (current) use of insulin; Z87.891 Personal history of nicotine dependence; Z90.710 Acquired absence of both cervix and uterus; Z90.49 Acquired absence of other specified parts of digestive tract; Z86.73 Personal history of transient ischemic attack (TIA), and cerebral infarction without residual deficits
CPT/HCPCS: 87071; 87075; 99205; 99215; G0463

== ENCOUNTER → 2018-08-17 | Outpatient (CLI) | payer MEDICARE ==
--- NOTE | 2018-08-17 14:29 | RAD ---
EXAM: Left lower extremity arterial Doppler sonogram with ankle-brachial indices (BHARAT); left lower extremity arterial Doppler sonogram. HISTORY: Nonhealing wound. TECHNIQUE: Doppler sonographic evaluation of the left lower extremity was performed and pressure readings were assessed. Doppler sonographic imaging of the left lower extremity arteries with spectral waveform analysis was also performed. FINDINGS: There are biphasic waveforms throughout the left lower extremity arteries. The left peroneal artery is not seen. There are normal peak systolic velocities within the remainder of the left lower extremity arteries. Left brachial pressure: 176 mmHg Left ankle pressure (dorsalis pedis artery): 187 mmHg Left ankle pressure (posterior tibial artery): 188 mmHg Left ankle BHARTA: 1.1 IMPRESSION: 1. Normal left lower extremity ankle-brachial index. 2. Nonvisualization of the left peroneal artery. There is no Doppler evidence of occlusion or high-grade stenosis involving the remainder of the left lower extremity arteries. Electronically signed by: Kori Mckeon MD (08/17/2018 2:26 PM) [place] [id number]
--- NOTE | 2018-08-17 14:29 | RAD ---
EXAM: Left lower extremity arterial Doppler sonogram with ankle-brachial indices (BHARAT); left lower extremity arterial Doppler sonogram. HISTORY: Nonhealing wound. TECHNIQUE: Doppler sonographic evaluation of the left lower extremity was performed and pressure readings were assessed. Doppler sonographic imaging of the left lower extremity arteries with spectral waveform analysis was also performed. FINDINGS: There are biphasic waveforms throughout the left lower extremity arteries. The left peroneal artery is not seen. There are normal peak systolic velocities within the remainder of the left lower extremity arteries. Left brachial pressure: 176 mmHg Left ankle pressure (dorsalis pedis artery): 187 mmHg Left ankle pressure (posterior tibial artery): 188 mmHg Left ankle BHARAT: 1.1 IMPRESSION: 1. Normal left lower extremity ankle-brachial index. 2. Nonvisualization of the left peroneal artery. There is no Doppler evidence of occlusion or high-grade stenosis involving the remainder of the left lower extremity arteries. Electronically signed by: Kori Mckeon MD (08/17/2018 2:26 PM) [place] [id number]
--- NOTE | 2018-08-17 16:31 | RAD ---
EXAM: Bilateral lower extremity venous reflux exam. HISTORY: Nonhealing wound. TECHNIQUE: Sonographic imaging of the lower extremity veins was performed. COMPARISON: None. FINDINGS: The right greater saphenous vein at its junction measures 10 mm and does not reflux. The left greater saphenous vein obstruction measures 6.5 mm and does not reflux. There is no evidence of venous reflux involving the bilateral lesser saphenous veins. There are left calf vein elementary instructional coach vessels. This includes a elementary instructional coach vessel measuring 12 cm up and 3 cm back and 2.8 mm in caliber, a elementary instructional coach vessel measuring 18 cm and 3 cm back and 2.0 mm in caliber, and a elementary instructional coach vessel measuring 3 cm and 3 cm back and measuring 1.4 mm in caliber. IMPRESSION: 1. No evidence of bilateral greater or lesser saphenous vein reflux. 2. Left calf vein elementary instructional coach veins, described in detail above.. Electronically signed by: oKri Mckeon MD (08/17/2018 4:28 PM) [id number]
== END | disposition home or self-care (01) ==
LOC: US 14:19
PROVIDERS: ATTEND Preventive Medicine Undersea and Hyperbaric Medicine
DX: E11.621 Type 2 diabetes mellitus with foot ulcer (principal); L97.221 Non-pressure chronic ulcer of left calf limited to breakdown of skin
CPT/HCPCS: 93922; 93926; 93970

== ENCOUNTER → 2018-08-21 | Outpatient (CLI) | payer MEDICARE | END | disposition home or self-care (01) | LOC: PMGWOUND 10:04 | PROVIDERS: ATTEND Preventive Medicine Undersea and Hyperbaric Medicine | DX: E11.621 Type 2 diabetes mellitus with foot ulcer (principal); L97.518 Non-pressure chronic ulcer of other part of right foot with other specified severity; E11.622 Type 2 diabetes mellitus with other skin ulcer; L97.828 Non-pressure chronic ulcer of other part of left lower leg with other specified severity; E11.40 Type 2 diabetes mellitus with diabetic neuropathy, unspecified; E11.649 Type 2 diabetes mellitus with hypoglycemia without coma; I13.2 Hypertensive heart and chronic kidney disease with heart failure and with stage 5 chronic kidney disease, or end stage renal disease; E11.22 Type 2 diabetes mellitus with diabetic chronic kidney disease; I50.9 Heart failure, unspecified; N18.5 Chronic kidney disease, stage 5; G89.29 Other chronic pain; M54.9 Dorsalgia, unspecified; E78.5 Hyperlipidemia, unspecified; I87.2 Venous insufficiency (chronic) (peripheral); J45.909 Unspecified asthma, uncomplicated; K21.9 Gastro-esophageal reflux disease without esophagitis; F32.9 Major depressive disorder, single episode, unspecified; E66.01 Morbid (severe) obesity due to excess calories; Z68.42 Body mass index [BMI] 45.0-49.9, adult; Z79.4 Long term (current) use of insulin; Z87.891 Personal history of nicotine dependence; Z90.710 Acquired absence of both cervix and uterus; Z90.49 Acquired absence of other specified parts of digestive tract; Z86.73 Personal history of transient ischemic attack (TIA), and cerebral infarction without residual deficits | CPT/HCPCS: 99213; G0463 ==

== ENCOUNTER → 2018-10-16 | Outpatient (CLI) | payer MEDICARE ==
--- NOTE | 2018-10-19 11:20 | RAD ---
MR#: [id number] Date of Study: 10/16/2018 Ordering Physician: ZACH ROLDAN, Referring Physician: ZACH ROLDAN, Tech: APPROVED REPORT Indications Perforater Eval around Left Anterior calf wound Findings Grayscale images of the left anterior mid calf wound area were obtained. Evaluation was made for any significant perforators. No obvious perforators were noted. There is subcutaneous edema noted. Althou gh the greater saphenous and varicose veins were obtained no obvious java developer consultant was noted. Color Dopp ler imaging was not obtained due to lack of any significant perforators. Critical Notification Critical Value: No <Conclusion> 1. No obvious perforators identified near the area of the left anterior mid calf wound. Subcutaneous edema noted. Signed by : Alberto Starr, Electronically Approved : 10/19/2018 11:19:44
== END | disposition home or self-care (01) ==
LOC: US 12:50
PROVIDERS: ATTEND Internal Medicine Cardiovascular Disease
DX: S89.82XA Other specified injuries of left lower leg, initial encounter (principal); R60.0 Localized edema; X58.XXXA Exposure to other specified factors, initial encounter; Y93.89 Activity, other specified; Y92.89 Other specified places as the place of occurrence of the external cause; Y99.8 Other external cause status
CPT/HCPCS: 93971

== ENCOUNTER 2019-01-18 13:40 | Inpatient (IN) | payer MEDICARE ==
[~2019-01-18] VITALS: Ht 162.6 cm; Wt 140.2 kg
[~2019-01-18 13:40] MED LIST changes: -PANT40TA3 PO; +PANT40TA77 PO
[2019-01-18] MEDS ORDERED: IV NORMAL SALINE 1000ML BAG 1,000 ML IV ONE (14:15)
--- NOTE | 2019-01-18 14:31 | RAD ---
CHEST AP ONLY History: Diabetes. Hypertension. Stroke.. Cardiomediastinal silhouette are stable. No evidence of pneumothorax. Limited visualization of the lung bases due to body habitus, no definite pleural effusion or focal infiltrate. Calcification or ossification just above the right humeral head is again identified. IMPRESSION: No significant change or definite acute infiltrate. Limited lung base evaluation, particularly on the left, due to body habitus. Electronically signed by: Rd Jacques MD (01/18/2019 2:29 PM) [id number]
--- NOTE | 2019-01-18 14:42 | EKG ---
[facility] [address] [place] [address] Test Date: 2019-01-18 Test Time: 13:52:50 Pat Name: CHASITY DILLARD Department: Room: Gender: F Field Nurse Case Manager: : [id number] Requested By: LINDSEY GE Order Number: [id number] Reading MD: Measurements Intervals [place] Rate: 96 P: 66 AL: 180 QRS: 2 QRSD: 88 T: 66 QT: 376 QTc: 476 Interpretive Statements SINUS RHYTHM T ABNORMALITY IN HIGH LATERAL LEADS PROLONGED QT ABNORMAL ECG RI6.01 No previous ECG available for comparison
[2019-01-18 14:48] LABS: BASO # 0.1 x10^3/uL (0.0-0.2); BASO % 1 % (0-3); EOS # 0.3 x10^3/uL (0.0-0.7); EOS % 3 % (0-3); HEMATOCRIT 25.9 % (36.0-47.0); HEMOGLOBIN 7.5 g/dL (12.0-15.5); LYMPH # 2.7 x10^3/uL (1.0-4.8); LYMPH % 23 % (24-48); MEAN CORPUSCULAR HEMOGLOBIN 21 pg (25-35); MEAN CORPUSCULAR HGB CONC 29 g/dL (31-37); MEAN CORPUSCULAR VOLUME 71 fL (79-100); MONO # 1.1 x10^3/uL (0.0-1.1); MONO % 9 % (0-9); NEUT # 7.3 x10^3/uL (1.8-7.7); NEUT % 64 % (31-73); PLATELET COUNT 346 x10^3/uL (140-400); RED BLOOD COUNT 3.65 x10^6/uL (3.50-5.40); RED CELL DISTRIBUTION WIDTH 23.5 % (11.5-14.5); WHITE BLOOD COUNT 11.4 x10^3/uL (4.0-11.0)
[2019-01-18 15:01] LABS: CALCIUM 9.1 mg/dL (8.5-10.1); CREATININE 1.3 mg/dL (0.6-1.0); GFR 49.9; POTASSIUM 3.2 mmol/L (3.5-5.1)
[2019-01-18 15:05] LABS: BILIRUBIN,URINE NEGATIVE (NEG); CLARITY,URINE CLEAR; COLOR,URINE YELLOW; NITRITE,URINE NEGATIVE (NEG); PROTEIN,URINE 100 mg/dL (NEG-TRACE); UROBILINOGEN,URINE 0.2 mg/dL (0.2 mg/dL)
[2019-01-18 15:07] LABS: ALBUMIN 2.9 g/dL (3.4-5.0); ALBUMIN/GLOBULIN RATIO 0.6 (1.0-1.7); TOTAL BILIRUBIN 0.2 mg/dL (0.2-1.0); TOTAL PROTEIN 7.8 g/dL (6.4-8.2)
[2019-01-18 15:12] LABS: PLT ESTIMATE ADEQUATE (ADEQUATE)
[2019-01-18 15:14] LABS: ANISOCYTOSIS MOD; HYPOCHROMIA MOD; MICROCYTOSIS MOD; POIKILOCYTOSIS SLIGHT
[2019-01-18 15:18] LABS: BACTERIA,URINE FEW /HPF (0-FEW); RBC,URINE OCC /HPF (0-2); SQUAMOUS EPITHELIAL CELL,UR FEW /LPF
--- NOTE | 2019-01-18 15:44 | RAD ---
Examination: CT ABDOMEN PELVIS WO CONTRAST History: Diffuse abdominal pain Comparison/Correlation: None Findings: Axial images of the abdomen and pelvis were obtained without contrast. Sagittal and coronal reformatted images were provided. Scattered coronary arterial calcification is incidentally seen. Calcified granulomas involve the left lung base. Diffuse fatty infiltration liver. Cholecystectomy. Calcified granulomas involve the spleen. Pancreas is unremarkable. Right adrenal gland is normal. 1.2 cm diameter left adrenal gland nodule is present. It is of somewhat low attenuation as would be expected of a benign adenoma. No radiopaque collecting system calculi or evidence of collecting system obstruction. Moderate quantity of stool in the colon noted. No ascites or pelvic free fluid. No bowel obstruction. Suture material involving the cecum is noted. Appendix is not identified. No inflammatory change about the cecum. No ascites or pelvic free fluid. Degenerative changes of the low lumbar spine facet joints noted. Disc space narrowing at multiple levels of the low thoracic spine evident. Bilateral hip joint degenerative remodeling noted. Impression: Fatty infiltration liver. No acute process. PQRS Compliance Statement: One or more of the following individualized dose reduction techniques were utilized for this examination: 1. Automated exposure control 2. Adjustment of the mA and/or kV according to patient size 3. Use of iterative reconstruction technique Electronically signed by: Florencio Donahue MD (01/18/2019 3:41 PM) [facility]
[2019-01-18] MEDS ORDERED: ONDANSETRON PF 4 MG/2 ML VIAL. IV PRN (15:45)
--- NOTE | 2019-01-18 15:51 | PHYS DOC ---
Past Medical History Past Medical History: CVA, Diabetes-Type I, Hypertension, Stroke Additional Past Medical Histor: Right side defecit from past CVA Past Surgical History: Appendectomy, Cholecystectomy, Hysterectomy, Other Additional Past Surgical Histo: back Alcohol Use: None Drug Use: None Adult General Chief Complaint Chief Complaint: SHORTNESS OF BREATH HPI HPI Patient is a very unfortunate 63-year-old female with multiple medical problems including a CVA which has left her hemiparetic on the right. She presents with a couple different complaints today first, she feels short of breath. She describes dyspnea at rest. She is predominantly bedbound. She is also had increasing abdominal discomfort. She states the pain is mid abdominal area cramping and constant. She is also noted some black stools recently. She denies any fever chills or sweats. She's not had any vomiting or hematemesis. She states she has had a history of an appendectomy. She has a lot of lower extremity swelling and she's had some wounds on her lower extremities that are currently wrapped. She seen wound care for these periods fact she was supposed to see them tomorrow. Review of Systems Review of Systems Constitutional: Denies fever or chills [] Eyes: Denies change in visual acuity, redness, or eye pain [] HENT: Denies nasal congestion or sore throat [] Respiratory: Reports shortness of breath[] Cardiovascular: No additional information not addressed in HPI [] GI: Per history of present illness[] : Denies dysuria or hematuria [] Musculoskeletal: Denies back pain or joint pain [] Integument: Denies rash or skin lesions [] Neurologic: Denies headache, focal weakness or sensory changes [] Endocrine: Denies polyuria or polydipsia [] All other systems were reviewed and found to be within normal limits, except as documented in this note. Current Medications Current Medications Current Medications Medications (Trade) Dose Ordered Sig/Nam Start Time Stop Time Status Last Admin Dose Admin Acetaminophen (Tylenol) 650 mg PRN Q4HRS PRN 01/18/19 15:45 01/19/19 15:44 UNV Fentanyl Citrate (Fentanyl 2ml Vial) 50 mcg PRN Q4HRS PRN 01/18/19 15:45 01/19/19 15:44 UNV Ondansetron HCl (Zofran) 4 mg PRN Q8HRS PRN 8/5/19 15:45 01/19/19 15:44 UNV Sodium Chloride 1,000 ml @ 1,000 mls/hr 1X ONCE 01/18/19 14:15 01/18/19 15:14 DC 01/18/19 15:20 1,000 MLS/HR Allergies Allergies Allergies Coded Allergies Type Severity Reaction Last Updated Verified aspirin Adverse Reaction Intermediate UPSET STOMACHE 05/16/18 Yes Physical Exam Physical Exam Constitutional: Well developed, well nourished, no acute distress, non-toxic appearance. [] HENT: Normocephalic, atraumatic, bilateral external ears normal, oropharynx moist, no oral exudates, nose normal. [] Eyes: PERRLA, EOMI, conjunctiva normal, no discharge. [] Neck: Normal range of motion, no tenderness, supple, no stridor. [] Cardiovascular:Heart rate regular rhythm, no murmur [] Lungs & Thorax: Bilateral breath sounds clear to auscultation [] Abdomen: Bowel sounds normal, soft, no tenderness, no masses, no pulsatile ma sses. [] Skin: Warm, dry, no erythema, no rash. [] Back: No tenderness, no CVA tenderness. [] Extremities: No tenderness, no cyanosis, no clubbing, ROM intact, no edema. [] Neurologic: Alert and oriented X 3, normal motor function, normal sensory function, no focal deficits noted. [] Psychologic: Affect normal, judgement normal, mood normal. [] Current Patient Data Vital Signs Vital Signs Date Time Temp Pulse Resp B/P (MAP) Pulse Ox O2 Delivery O2 Flow Rate FiO2 01/18/19 13:42 98.3 101 28 215/83 (127) 88 Room Air 98.3 Lab Values Laboratory Tests Test 01/18/19 14:30 01/18/19 14:53 White Blood Count 11.4 x10^3/uL (4.0-11.0) H Red Blood Count 3.65 x10^6/uL (3.50-5.40) Hemoglobin 7.5 g/dL (12.0-15.5) L Hematocrit 25.9 % (36.0-47.0) L Mean Corpuscular Volume 71 fL (79-100) L Mean Corpuscular Hemoglobin 21 pg (25-35) L Mean Corpuscular Hemoglobin Concent 29 g/dL (31-37) L Red Cell Distribution Width 23.5 % (11.5-14.5) H Platelet Count 346 x10^3/uL (140-400) Neutrophils (%) (Auto) 64 % (31-73) Lymphocytes (%) (Auto) 23 % (24-48) L Monocytes (%) (Auto) 9 % (0-9) Eosinophils (%) (Auto) 3 % (0-3) Basophils (%) (Auto) 1 % (0-3) Neutrophils # (Auto) 7.3 x10^3/uL (1.8-7.7) Lymphocytes # (Auto) 2.7 x10^3/uL (1.0-4.8) Monocytes # (Auto) 1.1 x10^3/uL (0.0-1.1) Eosinophils # (Auto) 0.3 x10^3/uL (0.0-0.7) Basophils # (Auto) 0.1 x10^3/uL (0.0-0.2) Platelet Estimate Adequate (ADEQUATE) Hypochromasia Mod Poikilocytosis Slight Anisocytosis Mod Microcytosis Mod Sodium Level 142 mmol/L (136-145) Potassium Level 3.2 mmol/L (3.5-5.1) L Chloride Level 97 mmol/L (98-107) L Carbon Dioxide Level 30 mmol/L (21-32) Anion Gap 15 (6-14) H Blood Urea Nitrogen 30 mg/dL (7-20) H Creatinine 1.3 mg/dL (0.6-1.0) H Estimated GFR (Cockcroft-Gault) 49.9 BUN/Creatinine Ratio 23 (6-20) H Glucose Level 347 mg/dL (70-99) H Calcium Level 9.1 mg/dL (8.5-10.1) Magnesium Level 2.0 mg/dL (1.8-2.4) Total Bilirubin 0.2 mg/dL (0.2-1.0) Aspartate Amino Transferase (AST) 29 U/L (15-37) Alanine Aminotransferase (ALT) 31 U/L (14-59) Alkaline Phosphatase 162 U/L (46-116) H Troponin I Quantitative < 0.017 ng/mL (0.000-0.055) Total Protein 7.8 g/dL (6.4-8.2) Albumin 2.9 g/dL (3.4-5.0) L Albumin/Globulin Ratio 0.6 (1.0-1.7) L Lipase 84 U/L (73-393) Urine Collection Type Void Urine Color Yellow Urine Clarity Clear Urine pH 6.0 Urine Specific [place] 1.010 Urine Protein 100 mg/dL (NEG-TRACE) Urine Glucose (UA) 100 mg/dL (NEG) Urine Ketones (Stick) Negative mg/dL (NEG) Urine Blood Trace (NEG) Urine Nitrite Negative (NEG) Urine Bilirubin Negative (NEG) Urine Urobilinogen Dipstick 0.2 mg/dL (0.2 mg/dL) Urine Leukocyte Esterase Trace (NEG) Urine RBC Occ /HPF (0-2) Urine WBC 1-4 /HPF (0-4) Urine Squamous Epithelial Cells Few /LPF Urine Bacteria Few /HPF (0-FEW) Urine Mucus Slight /LPF Laboratory Tests 01/18/19 14:30 Laboratory Tests 01/18/19 14:30 EKG EKG EKG: Normal sinus rhythm rate of [address]-T changes[] Radiology/Procedures Radiology/Procedures []REASON: soa, HX DIABETES, HTN, STROKE PROCEDURE: CHEST AP ONLY CHEST AP ONLY History: Diabetes. Hypertension. Stroke.. Cardiomediastinal silhouette are stable. No evidence of pneumothorax. Limited visualization of the lung bases due to body habitus, no definite pleural effusion or focal infiltrate. Calcification or ossification just above the right humeral head is again identified. IMPRESSION: No significant change or definite acute infiltrate. Limited lung base evaluation, particularly on the left, due to body habitus. Impressions: PROCEDURE: CT ABDOMEN PELVIS WO CONTRAST Examination: CT ABDOMEN PELVIS WO CONTRAST History: Diffuse abdominal pain Comparison/Correlation: None Findings: Axial images of the abdomen and pelvis were obtained without contrast. Sagittal and coronal reformatted images were provided. Scattered coronary arterial calcification is incidentally seen. Calcified granulomas involve the left lung base. Diffuse fatty infiltration liver. Cholecystectomy. Calcified granulomas involve the spleen. Pancreas is unremarkable. Right adrenal gland is normal. 1.2 cm diameter left adrenal gland nodule is present. It is of somewhat low attenuation as would be expected of a benign adenoma. No radiopaque collecting system calculi or evidence of collecting system obstruction. Moderate quantity of stool in the colon noted. No ascites or pelvic free fluid. No bowel obstruction. Suture material involving the cecum is noted. Appendix is not identified. No inflammatory change about the cecum. No ascites or pelvic free fluid. Degenerative changes of the low lumbar spine facet joints noted. Disc space narrowing at multiple levels of the low thoracic spine evident. Bilateral hip joint degenerative remodeling noted. Impression: Fatty infiltration liver. Course & Med Decision Making Course & Med Decision Making Pertinent Labs and Imaging studies reviewed. (See chart for details) [ED course: Evaluation reveals a 63-year-old female that likely has a GI bleed. We were unable to get stool while she was in the department however her blood count was low at 7. I spoke with Dr. Winn who agreed to accept the patient for admission. She will need to see GI and consult. I've ordered her pain medicine for the floor. I've also ordered fecal occult blood for when she is able to produce a specimen] Dragon Disclaimer Dragon Disclaimer This electronic medical record was generated, in whole or in part, using a voice recognition dictation system. Departure Departure Impression: Primary Impression: Symptomatic anemia Additional Impression: Dyspnea Disposition: 09 ADMITTED INPATIENT Admitting Physician: Liza Winn Condition: GUARDED Referrals: KEVIN GUERRERO MD (PCP) Problem Qualifiers Additional Impression: Dyspnea Dyspnea type: shortness of breath Qualified Codes: R06.02 - Shortness of breath LINDSEY GE DO Jan 18, 2019 15:51
[2019-01-18] MEDS: fentaNYL PF VIAL 100 MCG/2 ML VIAL IV PRN ×2 (16:25→22:00)
[2019-01-18] MEDS: ACETAMINOPHEN 325 MG TABLET. PO PRN (16:32)
[2019-01-18 17:49] VITALS: BP 149/60
--- NOTE | 2019-01-18 18:40 | PDOC2 ---
CONSULT Date of Consult Date of Consult DATE: 01/18/19 TIME: 18:38 Reason for Consult Reason for Consult: Acute blood lsos anemia/melena Past Medical History Cardiovascular: HTN, Hyperlipidemia Pulmonary: Asthma, Pneumonia CENTRAL NERVOUS SYSTEM: Carpal Tunnel Syndrome, CVA, Periperal neuropathy GI: GERD Heme/Onc: No pertinent hx Hepatobiliary: No pertinent hx Psych: Anxiety Musculoskeletal: Osteoarthritis Rheumatologic: No pertinent hx Infectious disease: No pertinent hx Renal/: No pertinent hx, Urinary Incontinence Endocrine: Diabetes Past Surgical History Past Surgical History: Cholecystectomy, Hysterectomy, Other Family History Family History: Diabetes Social History ALCOHOL: none Drugs: None Lives: with Family Domestic Violence: Neg Current Problem List Problem List Problems Medical Problems: (1) Dyspnea Status: Acute (2) Symptomatic anemia Status: Acute Current Medications Current Medications Current Medications Sodium Chloride 1,000 ml @ 1,000 mls/hr 1X ONCE IV Last administered on 01/18/19at 15:20; Start 01/18/19 at 14:15; Stop 01/18/19 at 15:14; Status DC Ondansetron HCl (Zofran) 4 mg PRN Q8HRS PRN IV NAUSEA/VOMITING Last administered on 01/18/19at 16:20; Start 01/18/19 at 15:45; Stop 01/19/19 at 15:44 Fentanyl Citrate (Fentanyl 2ml Vial) 50 mcg PRN Q4HRS PRN IV PAIN Last administered on 01/18/19at 16:25; Start 01/18/19 at 15:45; Stop 01/19/19 at 15:44 Acetaminophen (Tylenol) 650 mg PRN Q4HRS PRN PO FEVER Last administered on 01/18/19at 16:32; Start 01/18/19 at 15:45; Stop 01/19/19 at 15:44 Active Scripts Active Keflex (Cephalexin) 500 Mg Capsule 2 Cap PO BID Toujeo Solostar (Insulin Glargine,Hum.rec.anlog) 300 Unit/1 Ml Insuln.pen 65 Unit SQ [id number] 30 Days Novolog Flexpen (Insulin Aspart) 100 Unit/1 Ml Insuln.pen 55 Unit SQ TIDAC 30 Days Hydrochlorothiazide Capsule (Hydrochlorothiazide) 12.5 Mg Capsule 12.5 Mg PO DAILY 30 Days Metoprolol Tartrate 50 Mg Tablet 1 Tab PO BID Losartan Potassium 100 Mg Tablet 100 Mg PO DAILY 30 Days [Albuterol Sulfate] 2.5 MG/3 ML Nebu 2.5 Mg NEB PRN Q4HRS PRN Bupropion Xl (Bupropion Hcl) 150 Mg Tab.er.24h 150 Mg PO DAILY 30 Days Detrol La (Tolterodine Tartrate) 4 Mg Cap.er.24h 4 Mg PO DAILY 30 Days Reported Cyclobenzaprine Hcl 10 Mg Tablet 1 Tab PO QHS Amlodipine Besylate 5 Mg Tablet 5 Mg PO DAILY Loratadine 10 Mg Tablet 1 Tab PO DAILY Metformin Hcl 500 Mg Tablet 500 Mg PO BIDWMEALS Furosemide 40 Mg Tablet 1 Tab PO DAILY Cymbalta (Duloxetine Hcl) 60 Mg Capsule.dr 1 Cap PO DAILY Klor-Con 10 (Potassium Chloride) 10 Meq Tablet.er 10 Meq PO DAILY Gabapentin 100 Mg Capsule 100 Mg PO HS [Melatonin] PO HS Clopidogrel (Clopidogrel Bisulfate) 75 Mg Tablet 1 Tab PO DAILY Atorvastatin Calcium 40 Mg Tablet 1 Tab PO QHS Clonidine Hcl 0.2 Mg Tablet 0.2 Mg PO TID Allergies Allergies: Coded Allergies: aspirin (Verified Adverse Reaction, Intermediate, UPSET STOMACHE, 05/16/18) Vitals VITALS Vital Signs Date Time Temp Pulse Resp B/P (MAP) Pulse Ox O2 Delivery O2 Flow Rate FiO2 01/18/19 17:49 97.9 98 18 149/60 (89) 94 Nasal Cannula 3.0 97.9 Labs Labs Laboratory Tests Test 01/18/19 14:30 01/18/19 14:53 White Blood Count 11.4 x10^3/uL (4.0-11.0) Red Blood Count 3.65 x10^6/uL (3.50-5.40) Hemoglobin 7.5 g/dL (12.0-15.5) Hematocrit 25.9 % (36.0-47.0) Mean Corpuscular Volume 71 fL (79-100) Mean Corpuscular Hemoglobin 21 pg (25-35) Mean Corpuscular Hemoglobin Concent 29 g/dL (31-37) Red Cell Distribution Width 23.5 % (11.5-14.5) Platelet Count 346 x10^3/uL (140-400) Neutrophils (%) (Auto) 64 % (31-73) Lymphocytes (%) (Auto) 23 % (24-48) Monocytes (%) (Auto) 9 % (0-9) Eosinophils (%) (Auto) 3 % (0-3) Basophils (%) (Auto) 1 % (0-3) Neutrophils # (Auto) 7.3 x10^3/uL (1.8-7.7) Lymphocytes # (Auto) 2.7 x10^3/uL (1.0-4.8) Monocytes # (Auto) 1.1 x10^3/uL (0.0-1.1) Eosinophils # (Auto) 0.3 x10^3/uL (0.0-0.7) Basophils # (Auto) 0.1 x10^3/uL (0.0-0.2) Platelet Estimate Adequate (ADEQUATE) Hypochromasia Mod Poikilocytosis Slight Anisocytosis Mod Microcytosis Mod Sodium Level 142 mmol/L (136-145) Potassium Level 3.2 mmol/L (3.5-5.1) Chloride Level 97 mmol/L (98-107) Carbon Dioxide Level 30 mmol/L (21-32) Anion Gap 15 (6-14) Blood Urea Nitrogen 30 mg/dL (7-20) Creatinine 1.3 mg/dL (0.6-1.0) Estimated GFR (Cockcroft-Gault) 49.9 BUN/Creatinine Ratio 23 (6-20) Glucose Level 347 mg/dL (70-99) Calcium Level 9.1 mg/dL (8.5-10.1) Magnesium Level 2.0 mg/dL (1.8-2.4) Total Bilirubin 0.2 mg/dL (0.2-1.0) Aspartate Amino Transf (AST/SGOT) 29 U/L (15-37) Alanine Aminotransferase (ALT/SGPT) 31 U/L (14-59) Alkaline Phosphatase 162 U/L (46-116) Troponin I Quantitative < 0.017 ng/mL (0.000-0.055) Total Protein 7.8 g/dL (6.4-8.2) Albumin 2.9 g/dL (3.4-5.0) Albumin/Globulin Ratio 0.6 (1.0-1.7) Lipase 84 U/L (73-393) Urine Collection Type Void Urine Color Yellow Urine Clarity Clear Urine pH 6.0 Urine Specific [place] 1.010 Urine Protein 100 mg/dL (NEG-TRACE) Urine Glucose (UA) 100 mg/dL (NEG) Urine Ketones (Stick) Negative mg/dL (NEG) Urine Blood Trace (NEG) Urine Nitrite Negative (NEG) Urine Bilirubin Negative (NEG) Urine Urobilinogen Dipstick 0.2 mg/dL (0.2 mg/dL) Urine Leukocyte Esterase Trace (NEG) Urine RBC Occ /HPF (0-2) Urine WBC 1-4 /HPF (0-4) Urine Squamous Epithelial Cells Few /LPF Urine Bacteria Few /HPF (0-FEW) Urine Mucus Slight /LPF Laboratory Tests Test 01/18/19 14:30 01/18/19 14:53 White Blood Count 11.4 x10^3/uL (4.0-11.0) Red Blood Count 3.65 x10^6/uL (3.50-5.40) Hemoglobin 7.5 g/dL (12.0-15.5) Hematocrit 25.9 % (36.0-47.0) Mean Corpuscular Volume 71 fL (79-100) Mean Corpuscular Hemoglobin 21 pg (25-35) Mean Corpuscular Hemoglobin Concent 29 g/dL (31-37) Red Cell Distribution Width 23.5 % (11.5-14.5) Platelet Count 346 x10^3/uL (140-400) Neutrophils (%) (Auto) 64 % (31-73) Lymphocytes (%) (Auto) 23 % (24-48) Monocytes (%) (Auto) 9 % (0-9) Eosinophils (%) (Auto) 3 % (0-3) Basophils (%) (Auto) 1 % (0-3) Neutrophils # (Auto) 7.3 x10^3/uL (1.8-7.7) Lymphocytes # (Auto) 2.7 x10^3/uL (1.0-4.8) Monocytes # (Auto) 1.1 x10^3/uL (0.0-1.1) Eosinophils # (Auto) 0.3 x10^3/uL (0.0-0.7) Basophils # (Auto) 0.1 x10^3/uL (0.0-0.2) Platelet Estimate Adequate (ADEQUATE) Hypochromasia Mod Poikilocytosis Slight Anisocytosis Mod Microcytosis Mod Sodium Level 142 mmol/L (136-145) Potassium Level 3.2 mmol/L (3.5-5.1) Chloride Level 97 mmol/L (98-107) Carbon Dioxide Level 30 mmol/L (21-32) Anion Gap 15 (6-14) Blood Urea Nitrogen 30 mg/dL (7-20) Creatinine 1.3 mg/dL (0.6-1.0) Estimated GFR (Cockcroft-Gault) 49.9 BUN/Creatinine Ratio 23 (6-20) Glucose Level 347 mg/dL (70-99) Calcium Level 9.1 mg/dL (8.5-10.1) Magnesium Level 2.0 mg/dL (1.8-2.4) Total Bilirubin 0.2 mg/dL (0.2-1.0) Aspartate Amino Transf (AST/SGOT) 29 U/L (15-37) Alanine Aminotransferase (ALT/SGPT) 31 U/L (14-59) Alkaline Phosphatase 162 U/L (46-116) Troponin I Quantitative < 0.017 ng/mL (0.000-0.055) Total Protein 7.8 g/dL (6.4-8.2) Albumin 2.9 g/dL (3.4-5.0) Albumin/Globulin Ratio 0.6 (1.0-1.7) Lipase 84 U/L (73-393) Urine Collection Type Void Urine Color Yellow Urine Clarity Clear Urine pH 6.0 Urine Specific [place] 1.010 Urine Protein 100 mg/dL (NEG-TRACE) Urine Glucose (UA) 100 mg/dL (NEG) Urine Ketones (Stick) Negative mg/dL (NEG) Urine Blood Trace (NEG) Urine Nitrite Negative (NEG) Urine Bilirubin Negative (NEG) Urine Urobilinogen Dipstick 0.2 mg/dL (0.2 mg/dL) Urine Leukocyte Esterase Trace (NEG) Urine RBC Occ /HPF (0-2) Urine WBC 1-4 /HPF (0-4) Urine Squamous Epithelial Cells Few /LPF Urine Bacteria Few /HPF (0-FEW) Urine Mucus Slight /LPF Assessment/Plan Assessment/Plan Melena- with acute blood loss anemia and epigastric pain, PUD leads differential Plan PPI therapy serial blood counts/transfuse to maintain Hg > 8 EGD tomorrow to further assess Full ntoe dictated ARIANNA CAMARILLO MD Jan 18, 2019 18:40
[2019-01-18] MEDS: PANTOPRAZOLE 40 MG TABLET.DR. PO SCH (18:45)
[2019-01-18] MEDS ORDERED: GABA300C9 PO (18:57)
[2019-01-18] MEDS ORDERED: METO5TAB4 PO (18:57)
[2019-01-18] MEDS ORDERED: INSU100V31 SQ (18:57)
[2019-01-18 19:00] VITALS: BP 162/60
[2019-01-18 23:00] VITALS: BP 147/73
[2019-01-18 23:30] VITALS: BP 136/72
[2019-01-19] VITALS (8 sets, daily range): BP systolic 128–178; BP diastolic 56–84
[2019-01-19] MEDS: ACETAMINOPHEN 325 MG TABLET. PO PRN (04:26)
[2019-01-19] MEDS: fentaNYL PF VIAL 100 MCG/2 ML VIAL IV PRN ×5 (04:27→20:49)
[2019-01-19] MEDS: PANTOPRAZOLE 40 MG TABLET.DR. PO SCH (07:30)
[2019-01-19] MEDS ORDERED: IV DEXTROSE 5% 250 ML BAG. IV PRN (08:45)
[2019-01-19] MEDS ORDERED: ALBUTEROL SULFATE 2.5 MG/3 ML NEBU. NEB PRN (08:45)
[2019-01-19] MEDS ORDERED: DEXTROSE 50% 25 GM / 50ML DISP.SYRIN. IV PRN (08:45)
[2019-01-19] MEDS ORDERED: hydrALAZINE 20 MG/ML VIAL. IVP PRN (08:45)
[2019-01-19] MEDS ORDERED: FUROSEMIDE 40 MG/4 ML VIAL. IVP SCH (09:00)
[2019-01-19] MEDS: INSULIN GLARGINE 300 UNITS/3 ML INSULN.PEN. SQ SCH ×2 (09:00→20:55)
[2019-01-19 09:15] LABS: BASO # 0.1 x10^3/uL (0.0-0.2); BASO % 1 % (0-3); EOS # 0.4 x10^3/uL (0.0-0.7); EOS % 3 % (0-3); HEMATOCRIT 26.9 % (36.0-47.0); HEMOGLOBIN 7.9 g/dL (12.0-15.5); LYMPH % 25 % (24-48); MEAN CORPUSCULAR HEMOGLOBIN 21 pg (25-35); MEAN CORPUSCULAR HGB CONC 29 g/dL (31-37); MEAN CORPUSCULAR VOLUME 73 fL (79-100); MONO # 1.5 x10^3/uL (0.0-1.1); MONO % 13 % (0-9); NEUT # 6.8 x10^3/uL (1.8-7.7); NEUT % 58 % (31-73); PLATELET COUNT 313 x10^3/uL (140-400); WHITE BLOOD COUNT 11.8 x10^3/uL (4.0-11.0)
[2019-01-19 09:17] LABS: ALBUMIN 2.7 g/dL (3.4-5.0); ALBUMIN/GLOBULIN RATIO 0.6 (1.0-1.7); CALCIUM 8.7 mg/dL (8.5-10.1); CREATININE 0.9 mg/dL (0.6-1.0); GFR 76.3; POTASSIUM 3.5 mmol/L (3.5-5.1); TOTAL BILIRUBIN 0.4 mg/dL (0.2-1.0); TOTAL PROTEIN 7.1 g/dL (6.4-8.2)
[2019-01-19] MEDS: PANTOPRAZOLE IV PUSH 40 MG VIAL. IVP SCH (09:25)
[2019-01-19] MEDS: INSULIN LISPRO 300 UNITS/3 ML INSULN.PEN. SQ SCH ×2 (11:16→16:50)
[2019-01-19] MEDS ORDERED: PROPOFOL 20 ML IV ONE (14:42)
--- NOTE | 2019-01-19 14:54 | CONS ---
DATE OF CONSULTATION: 01/18/2019 REFERRING PHYSICIAN: Rd Dimas. REASON FOR CONSULTATION: Melena and anemia. HISTORY OF PRESENT ILLNESS: This is a 63-year-old female with past medical history significant for diabetes, hypertension, status post CVA, cholecystectomy, appendectomy, hysterectomy, is admitted to [facility] with melena over the past 2 days associated with epigastric abdominal pain. She has also had multiple aches and pains throughout her body, but has not been taking any NSAIDs. With continued symptoms, she was brought to the Emergency Room where she was found to have a BUN of 30, a creatinine of 1.3, hemoglobin of 7.5, hematocrit 25.9, white count 11.4. Also noted to be dyspneic. GI consultation was requested. PAST MEDICAL HISTORY: History of a CVA, history of cholecystectomy, hysterectomy, appendectomy, diabetes, hypertension. ALLERGIES: ASPIRIN. MEDICATIONS: At home are to be reviewed. SOCIAL HISTORY: He is retired. Does not drink or smoke. FAMILY HISTORY: Noncontributory. REVIEW OF SYSTEMS: Per records. PHYSICAL EXAMINATION: GENERAL: Reveals a disheveled female who is alert, who is cooperative, is in mild distress. VITAL SIGNS: Temperature 97.9, pulse 96, respiratory rate is 18, blood pressure is 149/60. HEENT: Reveals normocephalic, atraumatic head. Pupils and extraocular muscles are not tested. Sclerae anicteric. NECK: Supple. LUNGS: Clear anteriorly. CARDIOVASCULAR: Reveals a tachycardic, S1, S2 without S3, S4 or appreciable murmur. ABDOMEN: Reveals a soft abdomen, normal bowel sounds, with epigastric tenderness to deep palpation without appreciable hepatosplenomegaly, hemiparesis on the one side is noted. EXTREMITIES: Reveals some edema. LABORATORY STUDIES: Hemoglobin 7.5, hematocrit 25.9, white count 11.4, platelet count is 346,000. Sodium 140, potassium 3.2, chloride 97, BUN 30, creatinine 1.3, glucose is 347, calcium is 9.1, magnesium 2.0, total bilirubin 0.2, AST of 29, ALT of 31, alkaline phosphatase 162, total protein 7.8, albumin 2.9, and lipase is 84. IMPRESSION: Acute blood loss anemia with melena, most likely secondary to an upper gastrointestinal bleed with ulcers in the differential, malignancy, arteriovenous malformations, inflammatory bowel disease, colon cancer certainly are possible. Therefore, recommend transfusional support to maintain the hemoglobin greater than 8 with her dyspnea. Protonix 40 mg daily IV and esophagogastroduodenoscopy tentatively tomorrow once her blood counts have stabilized at her further assess. Risks and benefits discussed. The patient understands risk factor of perforation and willing to proceed. I would like to thank Dr. Dimas for allowing us to consult and participate in the patient's care. ARIANNA CAMARILLO MD DR: RUBÉN/alan JOB#: [id number] / [id number]
--- NOTE | 2019-01-19 15:02 | PDOC4 ---
Operative Note Operative Note EGD Meds propofol per anesthesia Pre-op dx acute blood loss anemia/melena post-op dx non-erosive gastritis Plan serial cbcs advance diet consider o/p colonoscopy ARIANNA CAMARILLO MD Jan 19, 2019 15:02
[2019-01-20] MEDS: fentaNYL PF VIAL 100 MCG/2 ML VIAL IV PRN ×2 (01:09→08:05)
[2019-01-20] MEDS ORDERED: ONDANSETRON PF 4 MG/2 ML VIAL. IV PRN (01:45)
[2019-01-20 07:00] VITALS: BP 163/70
[2019-01-20] MEDS ORDERED: INSULIN GLARGINE 300 UNITS/3 ML INSULN.PEN. SQ SCH ×2 (08:00→21:00)
[2019-01-20] MEDS: PANTOPRAZOLE IV PUSH 40 MG VIAL. IVP SCH (08:05)
[2019-01-20] MEDS: DULoxetine HCL 30 MG CAPSULE.DR PO SCH (08:05)
[2019-01-20] MEDS: FUROSEMIDE 40 MG TABLET. PO SCH (08:06)
[2019-01-20] MEDS: LOSARTAN POTASSIUM 50 MG TABLET. PO SCH (08:06)
[2019-01-20] MEDS: hydroCHLOROthiazide 12.5 MG CAPSULE PO SCH (08:07)
[2019-01-20] MEDS: GABAPENTIN 300 MG CAPSULE. PO SCH ×3 (08:07→20:37)
[2019-01-20] MEDS: POTASSIUM CHLORIDE 10 MEQ TABLET.ER. PO SCH (08:07)
[2019-01-20] MEDS: CETIRIZINE HCL 10 MG TABLET. PO SCH (08:07)
[2019-01-20] MEDS: cloNIDine HCL 0.2 MG TABLET PO SCH ×3 (08:07→23:52)
[2019-01-20] MEDS: CLOPIDOGREL BISULFATE 75 MG TABLET PO SCH (08:07)
[2019-01-20] MEDS: metOLazone 2.5 MG TABLET PO SCH (08:07)
[2019-01-20] MEDS: buPROPion XL 150 MG TAB.ER.24H. PO SCH (08:07)
[2019-01-20] MEDS: amLODIPine BESYLATE 5 MG TABLET PO SCH (08:08)
[2019-01-20] MEDS: metFORMIN 500 MG TABLET PO SCH ×2 (08:08→17:18)
[2019-01-20] MEDS: METOPROLOL TART IMMED RELEASE 50 MG TABLET. PO SCH ×2 (08:09→20:38)
[2019-01-20] MEDS: INSULIN LISPRO 300 UNITS/3 ML INSULN.PEN. SQ SCH ×7 (08:11→17:00)
[2019-01-20 09:00] LABS: BASO # 0.1 x10^3/uL (0.0-0.2); BASO % 1 % (0-3); EOS # 0.1 x10^3/uL (0.0-0.7); EOS % 1 % (0-3); HEMATOCRIT 27.9 % (36.0-47.0); HEMOGLOBIN 8.2 g/dL (12.0-15.5); LYMPH # 3.1 x10^3/uL (1.0-4.8); LYMPH % 28 % (24-48); MEAN CORPUSCULAR HEMOGLOBIN 21 pg (25-35); MEAN CORPUSCULAR HGB CONC 29 g/dL (31-37); MEAN CORPUSCULAR VOLUME 73 fL (79-100); MONO # 1.5 x10^3/uL (0.0-1.1); MONO % 13 % (0-9); NEUT # 6.4 x10^3/uL (1.8-7.7); NEUT % 57 % (31-73); PLATELET COUNT 338 x10^3/uL (140-400); RED BLOOD COUNT 3.84 x10^6/uL (3.50-5.40); RED CELL DISTRIBUTION WIDTH 23.2 % (11.5-14.5); WHITE BLOOD COUNT 11.3 x10^3/uL (4.0-11.0)
[2019-01-20 10:00] LABS: CALCIUM 8.8 mg/dL (8.5-10.1); GFR 67.5; POTASSIUM 4.1 mmol/L (3.5-5.1)
[2019-01-20 11:00] VITALS: BP 164/72
--- NOTE | 2019-01-20 13:07 | PDOC ---
PROGRESS NOTES Subjective Subjective Patient complaining of pain in her hands and legs. Patient continues to have self-care and mobility deficit. PT OT eval and treat ordered. EGD showed no active bleeding but erosive gastritis was documented. Patient under treatment with no signs of active bleeding at this time and hemoglobin is stable. Objective Objective Vital Signs Date Time Temp Pulse Resp B/P (MAP) Pulse Ox O2 Delivery O2 Flow Rate FiO2 01/20/19 11:00 98.0 86 18 164/72 (102) 90 Nasal Cannula 3.0 98.0 Intake and Output 01/20/19 07:00 # Voids 3 Physical Exam Abdomen: Normal bowel sounds Heart: Regular rate Extremities: Other (3+ edema lower extremities.) General: Alert Lungs: Clear to auscultation Assessment Assessment Problems Medical Problems: (1) Dyspnea Status: Acute (2) Epigastric pain Status: Acute (3) Melena Status: Acute (4) Symptomatic anemia Status: Acute Blood loss anemia. Debilitation. Late effect CVA Type 2 diabetes out of control Hyperlipidemia Asthma/COPD history of CHF Morbid obesity Comment Review of Relevant I have reviewed the following items emir (where applicable) has been applied. Labs Laboratory Tests Test 01/18/19 14:30 01/18/19 14:53 01/18/19 20:48 01/19/19 07:42 White Blood Count 11.4 x10^3/uL (4.0-11.0) Red Blood Count 3.65 x10^6/uL (3.50-5.40) Hemoglobin 7.5 g/dL (12.0-15.5) Hematocrit 25.9 % (36.0-47.0) Mean Corpuscular Volume 71 fL (79-100) Mean Corpuscular Hemoglobin 21 pg (25-35) Mean Corpuscular Hemoglobin Concent 29 g/dL (31-37) Red Cell Distribution Width 23.5 % (11.5-14.5) Platelet Count 346 x10^3/uL (140-400) Neutrophils (%) (Auto) 64 % (31-73) Lymphocytes (%) (Auto) 23 % (24-48) Monocytes (%) (Auto) 9 % (0-9) Eosinophils (%) (Auto) 3 % (0-3) Basophils (%) (Auto) 1 % (0-3) Neutrophils # (Auto) 7.3 x10^3/uL (1.8-7.7) Lymphocytes # (Auto) 2.7 x10^3/uL (1.0-4.8) Monocytes # (Auto) 1.1 x10^3/uL (0.0-1.1) Eosinophils # (Auto) 0.3 x10^3/uL (0.0-0.7) Basophils # (Auto) 0.1 x10^3/uL (0.0-0.2) Platelet Estimate Adequate (ADEQUATE) Hypochromasia Mod Poikilocytosis Slight Anisocytosis Mod Microcytosis Mod Sodium Level 142 mmol/L (136-145) Potassium Level 3.2 mmol/L (3.5-5.1) Chloride Level 97 mmol/L (98-107) Carbon Dioxide Level 30 mmol/L (21-32) Anion Gap 15 (6-14) Blood Urea Nitrogen 30 mg/dL (7-20) Creatinine 1.3 mg/dL (0.6-1.0) Estimated GFR (Cockcroft-Gault) 49.9 BUN/Creatinine Ratio 23 (6-20) Glucose Level 347 mg/dL (70-99) Calcium Level 9.1 mg/dL (8.5-10.1) Magnesium Level 2.0 mg/dL (1.8-2.4) Total Bilirubin 0.2 mg/dL (0.2-1.0) Aspartate Amino Transf (AST/SGOT) 29 U/L (15-37) Alanine Aminotransferase (ALT/SGPT) 31 U/L (14-59) Alkaline Phosphatase 162 U/L (46-116) Troponin I Quantitative < 0.017 ng/mL (0.000-0.055) Total Protein 7.8 g/dL (6.4-8.2) Albumin 2.9 g/dL (3.4-5.0) Albumin/Globulin Ratio 0.6 (1.0-1.7) Lipase 84 U/L (73-393) Urine Collection Type Void Urine Color Yellow Urine Clarity Clear Urine pH 6.0 Urine Specific [place] 1.010 Urine Protein 100 mg/dL (NEG-TRACE) Urine Glucose (UA) 100 mg/dL (NEG) Urine Ketones (Stick) Negative mg/dL (NEG) Urine Blood Trace (NEG) Urine Nitrite Negative (NEG) Urine Bilirubin Negative (NEG) Urine Urobilinogen Dipstick 0.2 mg/dL (0.2 mg/dL) Urine Leukocyte Esterase Trace (NEG) Urine RBC Occ /HPF (0-2) Urine WBC 1-4 /HPF (0-4) Urine Squamous Epithelial Cells Few /LPF Urine Bacteria Few /HPF (0-FEW) Urine Mucus Slight /LPF Glucose (Fingerstick) 155 mg/dL (70-99) 254 mg/dL (70-99) Test 01/19/19 08:14 01/19/19 11:28 01/19/19 16:17 01/19/19 20:08 White Blood Count 11.8 x10^3/uL (4.0-11.0) Red Blood Count 3.70 x10^6/uL (3.50-5.40) Hemoglobin 7.9 g/dL (12.0-15.5) Hematocrit 26.9 % (36.0-47.0) Mean Corpuscular Volume 73 fL (79-100) Mean Corpuscular Hemoglobin 21 pg (25-35) Mean Corpuscular Hemoglobin Concent 29 g/dL (31-37) Red Cell Distribution Width 23.0 % (11.5-14.5) Platelet Count 313 x10^3/uL (140-400) Neutrophils (%) (Auto) 58 % (31-73) Lymphocytes (%) (Auto) 25 % (24-48) Monocytes (%) (Auto) 13 % (0-9) Eosinophils (%) (Auto) 3 % (0-3) Basophils (%) (Auto) 1 % (0-3) Neutrophils # (Auto) 6.8 x10^3/uL (1.8-7.7) Lymphocytes # (Auto) 3.0 x10^3/uL (1.0-4.8) Monocytes # (Auto) 1.5 x10^3/uL (0.0-1.1) Eosinophils # (Auto) 0.4 x10^3/uL (0.0-0.7) Basophils # (Auto) 0.1 x10^3/uL (0.0-0.2) Sodium Level 144 mmol/L (136-145) Potassium Level 3.5 mmol/L (3.5-5.1) Chloride Level 101 mmol/L (98-107) Carbon Dioxide Level 35 mmol/L (21-32) Anion Gap 8 (6-14) Blood Urea Nitrogen 25 mg/dL (7-20) Creatinine 0.9 mg/dL (0.6-1.0) Estimated GFR (Cockcroft-Gault) 76.3 BUN/Creatinine Ratio 28 (6-20) Glucose Level 250 mg/dL (70-99) Calcium Level 8.7 mg/dL (8.5-10.1) Total Bilirubin 0.4 mg/dL (0.2-1.0) Aspartate Amino Transf (AST/SGOT) 25 U/L (15-37) Alanine Aminotransferase (ALT/SGPT) 26 U/L (14-59) Alkaline Phosphatase 135 U/L (46-116) Total Protein 7.1 g/dL (6.4-8.2) Albumin 2.7 g/dL (3.4-5.0) Albumin/Globulin Ratio 0.6 (1.0-1.7) Glucose (Fingerstick) 281 mg/dL (70-99) 273 mg/dL (70-99) 305 mg/dL (70-99) Test 01/20/19 07:37 01/20/19 08:30 01/20/19 11:27 Glucose (Fingerstick) 312 mg/dL (70-99) 143 mg/dL (70-99) White Blood Count 11.3 x10^3/uL (4.0-11.0) Red Blood Count 3.84 x10^6/uL (3.50-5.40) Hemoglobin 8.2 g/dL (12.0-15.5) Hematocrit 27.9 % (36.0-47.0) Mean Corpuscular Volume 73 fL (79-100) Mean Corpuscular Hemoglobin 21 pg (25-35) Mean Corpuscular Hemoglobin Concent 29 g/dL (31-37) Red Cell Distribution Width 23.2 % (11.5-14.5) Platelet Count 338 x10^3/uL (140-400) Neutrophils (%) (Auto) 57 % (31-73) Lymphocytes (%) (Auto) 28 % (24-48) Monocytes (%) (Auto) 13 % (0-9) Eosinophils (%) (Auto) 1 % (0-3) Basophils (%) (Auto) 1 % (0-3) Neutrophils # (Auto) 6.4 x10^3/uL (1.8-7.7) Lymphocytes # (Auto) 3.1 x10^3/uL (1.0-4.8) Monocytes # (Auto) 1.5 x10^3/uL (0.0-1.1) Eosinophils # (Auto) 0.1 x10^3/uL (0.0-0.7) Basophils # (Auto) 0.1 x10^3/uL (0.0-0.2) Sodium Level 140 mmol/L (136-145) Potassium Level 4.1 mmol/L (3.5-5.1) Chloride Level 101 mmol/L (98-107) Carbon Dioxide Level 30 mmol/L (21-32) Anion Gap 9 (6-14) Blood Urea Nitrogen 16 mg/dL (7-20) Creatinine 1.0 mg/dL (0.6-1.0) Estimated GFR (Cockcroft-Gault) 67.5 Glucose Level 330 mg/dL (70-99) Calcium Level 8.8 mg/dL (8.5-10.1) Laboratory Tests Test 01/19/19 16:17 01/19/19 20:08 01/20/19 07:37 01/20/19 08:30 Glucose (Fingerstick) 273 mg/dL (70-99) 305 mg/dL (70-99) 312 mg/dL (70-99) White Blood Count 11.3 x10^3/uL (4.0-11.0) Red Blood Count 3.84 x10^6/uL (3.50-5.40) Hemoglobin 8.2 g/dL (12.0-15.5) Hematocrit 27.9 % (36.0-47.0) Mean Corpuscular Volume 73 fL (79-100) Mean Corpuscular Hemoglobin 21 pg (25-35) Mean Corpuscular Hemoglobin Concent 29 g/dL (31-37) Red Cell Distribution Width 23.2 % (11.5-14.5) Platelet Count 338 x10^3/uL (140-400) Neutrophils (%) (Auto) 57 % (31-73) Lymphocytes (%) (Auto) 28 % (24-48) Monocytes (%) (Auto) 13 % (0-9) Eosinophils (%) (Auto) 1 % (0-3) Basophils (%) (Auto) 1 % (0-3) Neutrophils # (Auto) 6.4 x10^3/uL (1.8-7.7) Lymphocytes # (Auto) 3.1 x10^3/uL (1.0-4.8) Monocytes # (Auto) 1.5 x10^3/uL (0.0-1.1) Eosinophils # (Auto) 0.1 x10^3/uL (0.0-0.7) Basophils # (Auto) 0.1 x10^3/uL (0.0-0.2) Sodium Level 140 mmol/L (136-145) Potassium Level 4.1 mmol/L (3.5-5.1) Chloride Level 101 mmol/L (98-107) Carbon Dioxide Level 30 mmol/L (21-32) Anion Gap 9 (6-14) Blood Urea Nitrogen 16 mg/dL (7-20) Creatinine 1.0 mg/dL (0.6-1.0) Estimated GFR (Cockcroft-Gault) 67.5 Glucose Level 330 mg/dL (70-99) Calcium Level 8.8 mg/dL (8.5-10.1) Test 01/20/19 11:27 Glucose (Fingerstick) 143 mg/dL (70-99) Medications Current Medications Sodium Chloride 1,000 ml @ 1,000 mls/hr 1X ONCE IV Last administered on 01/18/19at 15:20; Start 01/18/19 at 14:15; Stop 01/18/19 at 15:14; Status DC Ondansetron HCl (Zofran) 4 mg PRN Q8HRS PRN IV NAUSEA/VOMITING Last ad ministered on 01/18/19at 16:20; Start 01/18/19 at 15:45; Stop 01/19/19 at 15:44; Status DC Fentanyl Citrate (Fentanyl 2ml Vial) 50 mcg PRN Q4HRS PRN IV PAIN Last administered on 01/19/19at 12:42; Start 01/18/19 at 15:45; Stop 01/19/19 at 15:44; Status DC Acetaminophen (Tylenol) 650 mg PRN Q4HRS PRN PO FEVER Last administered on 01/19/19 04:26; Start 01/18/19 at 15:45; Stop 01/19/19 at 15:44; Status DC Pantoprazole Sodium (Protonix) 40 mg DAILYAC PO ; Start 01/18/19 at 18:45; Stop 01/19/19 at 08:50; Status DC Furosemide (Lasix) 40 mg DAILY IVP Last administered on 01/19/19at 09:26; Start 01/19/19 at 09:00; Stop 01/20/19 at 07:18; Status DC Hydralazine HCl (Apresoline Inj) 10 mg PRN Q4HRS PRN IVP ELEVATED BP, SEE COMMENTS Last administered on 01/19/19at 11:14; Start 01/19/19 at 08:45 Potassium Chloride/Sodium Chloride 1,000 ml @ 90 mls/hr [id number] IV Last administered on 01/20/19at 01:09; Start 01/19/19 at 08:45 Insulin Glargine (Lantus) 30 units BID SQ Last administered on 01/19/19at 20:55; Start 01/19/19 at 09:00; Stop 01/20/19 at 07:18; Status DC Insulin Human Lispro (HumaLOG) 0-5 UNITS TIDWMEALS SQ Last administered on 01/20/19at 08:12; Start 01/19/19 at 12:00 Dextrose (Dextrose 50%-Water Syringe) 12.5 gm PRN Q15MIN PRN IV SEE COMMENTS; Start 01/19/19 at 08:45 Dextrose 250 ml PRN Q15MIN PRN IV SEE COMMENTS; Start 01/19/19 at 08:45 Albuterol Sulfate (Ventolin Neb Soln) 2.5 mg PRN Q6HRS PRN NEB SHORTNESS OF BREATH Last administered on 01/19/19at 17:03; Start 01/19/19 at 08:45 Pantoprazole Sodium (PROTONIX VIAL for IV PUSH) 40 mg DAILYAC IVP Last administered on 01/20/19at 08:12; Start 01/19/19 at 09:00 Propofol 20 ml @ As Directed STK-MED ONCE IV ; Start 01/19/19 at 14:42; Stop 01/19/19 at 14:43; Status DC Fentanyl Citrate (Fentanyl 2ml Vial) 50 mcg PRN Q4HRS PRN IV PAIN Last admini stered on 01/20/19 08:12; Start 01/19/19 at 16:30 Ondansetron HCl (Zofran) 4 mg PRN Q6HRS PRN IV NAUSEA/VOMITING 1ST CHOICE Last administered on 01/20/19 01:53; Start 01/20/19 at 01:45 Amlodipine Besylate (Norvasc) 5 mg DAILY PO Last administered on 01/20/19 08:12; Start 01/20/19 at 09:00 Atorvastatin Calcium (Lipitor) 40 mg QHS PO ; Start 01/20/19 at 21:00 Bupropion HCl (Wellbutrin Xl) 150 mg DAILY PO Last administered on 01/20/19 08:12; Start 01/20/19 at 09:00 Clonidine HCl (Catapres) 0.2 mg TID PO Last administered on 01/20/19 08:12; Start 01/20/19 at 09:00 Clopidogrel Bisulfate (Plavix) 75 mg DAILY PO Last administered on 01/20/19 08:12; Start 01/20/19 at 09:00 Cyclobenzaprine HCl (Flexeril) 10 mg QHS PO ; Start 01/20/19 at 21:00 Furosemide (Lasix) 40 mg DAILY PO Last administered on 01/20/19 08:12; Start 01/20/19 at 09:00 Gabapentin (Neurontin) 300 mg TID PO Last administered on 01/20/19 08:12; Start 01/20/19 at 09:00 Hydrochlorothiazide (Microzide) 12.5 mg DAILY PO Last administered on 01/20/19 08:12; Start 01/20/19 at 09:00 Metformin HCl (Glucophage) 500 mg BIDWMEALS PO Last administered on 01/20/19 08:12; Start 01/20/19 at 08:00 Metoprolol Tartrate (Lopressor) 50 mg BID PO Last administered on 01/20/19 08:12; Start 01/20/19 at 09:00 Duloxetine HCl (Cymbalta) 60 mg DAILY PO Last administered on 01/20/19 08:12; Start 01/20/19 at 09:00 Insulin Human Lispro (HumaLOG) 50 units TIDWMEALS SQ Last administered on 01/20/19at 08:12; Start 01/20/19 at 08:00 Insulin Glargine (Lantus) 65 units [id number] SQ Last administered on 01/20/19at 08:12; Start 01/20/19 at 08:00 Cetirizine HCl (ZyrTEC) 10 mg DAILY PO Last administered on 01/20/19at 08:12; Start 01/20/19 at 09:00 Losartan Potassium (Cozaar) 100 mg DAILY PO Last administered on 01/20/19at 08:12; Start 01/20/19 at 09:00 Metolazone (Zaroxolyn) 5 mg DAILY PO Last administered on 01/20/19at 08:12; Start 01/20/19 at 09:00 Potassium Chloride (Klor-Con) 10 meq [id number] PO Last administered on 01/20/19at 08:12; Start 01/20/19 at 08:00 Active Scripts Active Tanisha Vences (Insulin Glargine,Hum.rec.anlog) 300 Unit/1 Ml Insuln.pen 65 Unit SQ [id number] 30 Days Hydrochlorothiazide Capsule (Hydrochlorothiazide) 12.5 Mg Capsule 12.5 Mg PO DAILY 30 Days Metoprolol Tartrate 50 Mg Tablet 1 Tab PO BID Losartan Potassium 100 Mg Tablet 100 Mg PO DAILY 30 Days Bupropion Xl (Bupropion Hcl) 150 Mg Tab.er.24h 150 Mg PO DAILY 30 Days Reported Novolog (Insulin Aspart) 100 Unit/1 Ml Vial 50 Units SQ TIDAC Metolazone 5 Mg Tablet 5 Mg PO DAILY Gabapentin 300 Mg Capsule 300 Mg PO TID Cyclobenzaprine Hcl 10 Mg Tablet 1 Tab PO QHS Amlodipine Besylate 5 Mg Tablet 5 Mg PO DAILY Loratadine 10 Mg Tablet 1 Tab PO DAILY Metformin Hcl 500 Mg Tablet 500 Mg PO BIDWMEALS Furosemide 40 Mg Tablet 1 Tab PO DAILY Cymbalta (Duloxetine Hcl) 60 Mg Capsule.dr 1 Cap PO DAILY Klor-Con 10 (Potassium Chloride) 10 Meq Tablet.er 10 Meq PO DAILY Clopidogrel (Clopidogrel Bisulfate) 75 Mg Tablet 1 Tab PO DAILY Atorvastatin Calcium 40 Mg Tablet 1 Tab PO QHS Clonidine Hcl 0.2 Mg Tablet 0.2 Mg PO TID Vitals/I & O Vital Sign - Last 24 Hours 01/19/19 01/19/19 01/19/19 01/19/19 13:37 14:37 14:37 15:00 Temp 97 98.2 97.0 98.2 Pulse 101 90 Resp 20 18 20 B/P (MAP) 158/60 (92) Pulse Ox 94 97 94 O2 Delivery Nasal Cannula Nasal Cannula Nasal Cannula O2 Flow Rate 3.0 3.0 2.0 01/19/19 01/19/19 01/19/19 01/19/19 15:04 15:19 15:28 16:36 Temp 97.2 97.2 Pulse 94 98 96 Resp 16 18 18 20 B/P (MAP) 146/65 141/63 148/61 Pulse Ox 93 93 92 92 O2 Delivery Nasal Cannula Nasal Cannula Nasal Cannula Nasal Cannula Simple Mask Simple Mask O2 Flow Rate 5 2 2 2.0 01/19/19 01/19/19 01/19/19 01/19/19 16:50 17:03 19:00 20:00 Temp 98.4 98.4 Pulse 110 Resp 20 18 B/P (MAP) 134/63 (86) Pulse Ox 92 92 95 O2 Delivery Nasal Cannula Nasal Cannula Nasal Cannula Nasal Cannula O2 Flow Rate 2.0 2.0 3.0 3.0 01/19/19 01/20/19 01/20/19 01/20/19 23:00 07:00 08:00 08:12 Temp 99.4 98.3 99.4 98.3 Pulse 101 106 Resp 21 16 B/P (MAP) 177/71 (106) 163/70 (101) Pulse Ox 94 87 O2 Delivery Nasal Cannula Nasal Cannula Nasal Cannula Nasal Cannula O2 Flow Rate 3.0 3.0 2.0 2.0 01/20/19 01/20/19 01/20/19 01/20/19 08:12 08:12 08:12 08:12 Pulse 106 106 106 106 B/P (MAP) 163/70 163/70 163/70 163/70 01/20/19 01/20/19 08:40 11:00 Temp 98.0 98.0 Pulse 86 Resp 18 B/P (MAP) 164/72 (102) Pulse Ox 90 O2 Delivery Room Air Nasal Cannula O2 Flow Rate 3.0 KEVIN GUERRERO MD Jan 20, 2019 13:07
--- NOTE | 2019-01-20 14:10 | PDOC ---
Objective: Objective: Per nurse - usually much more awake, some concern w/ insulin dose and checking glucose level now, no stools, "picking at food." Vital Signs: Vital Signs Date Time Temp Pulse Resp B/P (MAP) Pulse Ox O2 Delivery O2 Flow Rate FiO2 01/20/19 12:47 86 164/72 01/20/19 11:00 98.0 18 90 Nasal Cannula 3.0 98.0 Labs: Laboratory Tests Test 01/19/19 16:17 01/19/19 20:08 01/20/19 07:37 01/20/19 11:27 Glucose (Fingerstick) 273 mg/dL (70-99) 305 mg/dL (70-99) 312 mg/dL (70-99) 143 mg/dL (70-99) Test 01/20/19 13:52 Glucose (Fingerstick) 146 mg/dL (70-99) Imaging: EGD 01/19 non-erosive gastritis PE: GEN: NAD LUNGS: room air ABD: round, soft, apparently non-tender, BS+ NEURO/PSYCH: asleep in chair, did not awaken when I called her name or examined her abdomen A/P: Melena - no recurrence Anemia - stable post transfusions -- Outpt colonoscopy. No longer needs IV PPI. NANDA CHAUDHRY Jan 20, 2019 14:10
--- NOTE | 2019-01-20 15:25 | PDOC1 ---
History and Physical Past Medical History Cardiovascular: HTN, Hyperlipidemia Pulmonary: Asthma, Pneumonia CENTRAL NERVOUS SYSTEM: Carpal Tunnel Syndrome, CVA, Periperal neuropathy GI: GERD Heme/Onc: No pertinent hx Hepatobiliary: No pertinent hx Psych: Anxiety Rheumatologic: No pertinent hx Infectious disease: No pertinent hx Renal/: No pertinent hx, Urinary Incontinence Endocrine: Diabetes Past Surgical History Past Surgical History: Cholecystectomy, Hysterectomy, Other Family History Family History: Diabetes Social History ALCOHOL: none Drugs: None Current Problem List Problem List Problems Medical Problems: (1) Dyspnea Status: Acute (2) Epigastric pain Status: Acute (3) Melena Status: Acute (4) Symptomatic anemia Status: Acute Current Medications Current Medications Current Medications Medications (Trade) Dose Ordered Sig/Nam Start Time Stop Time Status Last Admin Dose Admin Acetaminophen (Tylenol) 650 mg PRN Q4HRS PRN 01/18/19 15:45 01/19/19 15:44 DC 01/19/19 04:26 650 MG Albuterol Sulfate (Ventolin Neb Soln) 2.5 mg PRN Q6HRS PRN 01/19/19 08:45 01/19/19 17:03 2.5 MG Amlodipine Besylate (Norvasc) 5 mg DAILY 01/20/19 09:00 01/20/19 08:12 5 MG Atorvastatin Calcium (Lipitor) 40 mg QHS 01/20/19 21:00 Bupropion HCl (Wellbutrin Xl) 150 mg DAILY 01/20/19 09:00 01/20/19 08:12 150 MG Cetirizine HCl (ZyrTEC) 10 mg DAILY 01/20/19 09:00 01/20/19 08:12 10 MG Clonidine HCl (Catapres) 0.2 mg TID 01/20/19 09:00 01/20/19 12:47 0.2 MG Clopidogrel Bisulfate (Plavix) 75 mg DAILY 01/20/19 09:00 01/20/19 08:12 75 MG Cyclobenzaprine HCl (Flexeril) 10 mg QHS 01/20/19 21:00 Dextrose 250 ml PRN Q15MIN PRN 01/19/19 08:45 Dextrose (Dextrose 50%-Water Syringe) 12.5 gm PRN Q15MIN PRN 01/19/19 08:45 Duloxetine HCl (Cymbalta) 60 mg DAILY 01/20/19 09:00 01/20/19 08:12 60 MG Fentanyl Citrate (Fentanyl 2ml Vial) 50 mcg PRN Q4HRS PRN 01/19/19 16:30 01/20/19 08:12 50 MCG Ferrous Sulfate (Feosol) 325 mg TID 01/20/19 14:00 Furosemide (Lasix) 40 mg DAILY 01/20/19 09:00 01/20/19 08:12 40 MG Gabapentin (Neurontin) 300 mg TID 01/20/19 09:00 01/20/19 12:47 300 MG Hydralazine HCl (Apresoline Inj) 10 mg PRN Q4HRS PRN 01/19/19 08:45 01/19/19 11:14 10 MG Hydrochlorothiazide (Microzide) 12.5 mg DAILY 01/20/19 09:00 01/20/19 08:12 12.5 MG Insulin Glargine (Lantus) 65 units BID76 01/20/19 08:00 01/20/19 08:12 65 UNITS Insulin Human Lispro (HumaLOG) 50 units TIDWMEALS 01/20/19 08:00 01/20/19 13:02 25 UNITS Losartan Potassium (Cozaar) 100 mg DAILY 01/20/19 09:00 01/20/19 08:12 100 MG Metformin HCl (Glucophage) 500 mg BIDWMEALS 01/20/19 08:00 01/20/19 08:12 500 MG Metolazone (Zaroxolyn) 5 mg DAILY 01/20/19 09:00 01/20/19 08:12 5 MG Metoprolol Tartrate (Lopressor) 50 mg BID 01/20/19 09:00 01/20/19 08:12 50 MG Ondansetron HCl (Zofran) 4 mg PRN Q6HRS PRN 01/20/19 01:45 01/20/19 01:53 4 MG Pantoprazole Sodium (PROTONIX VIAL for IV PUSH) 40 mg DAILYAC 01/19/19 09:00 01/20/19 14:11 DC 01/20/19 08:12 40 MG Pantoprazole Sodium (Protonix) 40 mg DAILYAC 01/21/19 07:30 Polyethylene Glycol (miraLAX PACKET) 17 gm DAILY 01/20/19 15:00 Potassium Chloride/Sodium Chloride 1,000 ml @ 90 mls/hr Q11H7M 01/19/19 08:45 01/20/19 01:09 90 MLS/HR Potassium Chloride (Klor-Con) 10 meq DAILYWBKFT 01/20/19 08:00 01/20/19 08:12 10 MEQ Propofol 20 ml @ As Directed STK-MED ONCE 01/19/19 14:42 01/19/19 14:43 DC Sodium Chloride 1,000 ml @ 1,000 mls/hr 1X ONCE 01/18/19 14:15 01/18/19 15:14 DC 01/18/19 15:20 1,000 MLS/HR Allergies Allergies Allergies Coded Allergies Type Severity Reaction Last Updated Verified aspirin Adverse Reaction Intermediate UPSET STOMACHE 05/16/18 Yes ROS Review of System CONSTITUTIONAL: No fever or chills EYES: No recent changes SKIN: No rash or itching CARDIOVASCULAR: No chest pain, syncope, palpitations, or edema RESPIRATORY: No SOB or cough GASTROINTESTINAL: No nausea, vomiting or abdominal pain NEUROLOGICAL: No headaches or weakness ENDOCRINE: No cold or heat intolerance GENITOURINARY: No urgency or frequency of urination MUSCULOSKELETAL: No back pain or joint pain LYMPHATICS: No enlarged lymph nodes PSYCHIATRIC: No anxiety or depression Physical Exam Physical Exam GEN.: No apparent distress. Alert and oriented. HEENT: Head is normocephalic, atraumatic NECK: Supple. LUNGS: Clear to auscultation. HEART: RRR, S1, S2 present. Peripheral pulses intact ABDOMEN: Soft, nontender. Positive bowel sounds. EXTREMITIES: Without any cyanosis. NEUROLOGIC: Normal speech, normal tone PSYCHIATRIC: Normal affect, normal mood. SKIN: No ulcerations Vitals Vitals Vital Signs Date Time Temp Pulse Resp B/P (MAP) Pulse Ox O2 Delivery O2 Flow Rate FiO2 01/20/19 12:47 86 164/72 01/20/19 11:00 98.0 18 90 Nasal Cannula 3.0 98.0 Labs Labs Laboratory Tests Test 01/18/19 20:48 01/19/19 07:42 01/19/19 08:14 01/19/19 11:28 Glucose (Fingerstick) 155 mg/dL (70-99) 254 mg/dL (70-99) 281 mg/dL (70-99) White Blood Count 11.8 x10^3/uL (4.0-11.0) Red Blood Count 3.70 x10^6/uL (3.50-5.40) Hemoglobin 7.9 g/dL (12.0-15.5) Hematocrit 26.9 % (36.0-47.0) Mean Corpuscular Volume 73 fL (79-100) Mean Corpuscular Hemoglobin 21 pg (25-35) Mean Corpuscular Hemoglobin Concent 29 g/dL (31-37) Red Cell Distribution Width 23.0 % (11.5-14.5) Platelet Count 313 x10^3/uL (140-400) Neutrophils (%) (Auto) 58 % (31-73) Lymphocytes (%) (Auto) 25 % (24-48) Monocytes (%) (Auto) 13 % (0-9) Eosinophils (%) (Auto) 3 % (0-3) Basophils (%) (Auto) 1 % (0-3) Neutrophils # (Auto) 6.8 x10^3/uL (1.8-7.7) Lymphocytes # (Auto) 3.0 x10^3/uL (1.0-4.8) Monocytes # (Auto) 1.5 x10^3/uL (0.0-1.1) Eosinophils # (Auto) 0.4 x10^3/uL (0.0-0.7) Basophils # (Auto) 0.1 x10^3/uL (0.0-0.2) Sodium Level 144 mmol/L (136-145) Potassium Level 3.5 mmol/L (3.5-5.1) Chloride Level 101 mmol/L (98-107) Carbon Dioxide Level 35 mmol/L (21-32) Anion Gap 8 (6-14) Blood Urea Nitrogen 25 mg/dL (7-20) Creatinine 0.9 mg/dL (0.6-1.0) Estimated GFR (Cockcroft-Gault) 76.3 BUN/Creatinine Ratio 28 (6-20) Glucose Level 250 mg/dL (70-99) Calcium Level 8.7 mg/dL (8.5-10.1) Total Bilirubin 0.4 mg/dL (0.2-1.0) Aspartate Amino Transf (AST/SGOT) 25 U/L (15-37) Alanine Aminotransferase (ALT/SGPT) 26 U/L (14-59) Alkaline Phosphatase 135 U/L (46-116) Total Protein 7.1 g/dL (6.4-8.2) Albumin 2.7 g/dL (3.4-5.0) Albumin/Globulin Ratio 0.6 (1.0-1.7) Test 01/19/19 16:17 01/19/19 20:08 01/20/19 07:37 01/20/19 08:30 Glucose (Fingerstick) 273 mg/dL (70-99) 305 mg/dL (70-99) 312 mg/dL (70-99) White Blood Count 11.3 x10^3/uL (4.0-11.0) Red Blood Count 3.84 x10^6/uL (3.50-5.40) Hemoglobin 8.2 g/dL (12.0-15.5) Hematocrit 27.9 % (36.0-47.0) Mean Corpuscular Volume 73 fL (79-100) Mean Corpuscular Hemoglobin 21 pg (25-35) Mean Corpuscular Hemoglobin Concent 29 g/dL (31-37) Red Cell Distribution Width 23.2 % (11.5-14.5) Platelet Count 338 x10^3/uL (140-400) Neutrophils (%) (Auto) 57 % (31-73) Lymphocytes (%) (Auto) 28 % (24-48) Monocytes (%) (Auto) 13 % (0-9) Eosinophils (%) (Auto) 1 % (0-3) Basophils (%) (Auto) 1 % (0-3) Neutrophils # (Auto) 6.4 x10^3/uL (1.8-7.7) Lymphocytes # (Auto) 3.1 x10^3/uL (1.0-4.8) Monocytes # (Auto) 1.5 x10^3/uL (0.0-1.1) Eosinophils # (Auto) 0.1 x10^3/uL (0.0-0.7) Basophils # (Auto) 0.1 x10^3/uL (0.0-0.2) Sodium Level 140 mmol/L (136-145) Potassium Level 4.1 mmol/L (3.5-5.1) Chloride Level 101 mmol/L (98-107) Carbon Dioxide Level 30 mmol/L (21-32) Anion Gap 9 (6-14) Blood Urea Nitrogen 16 mg/dL (7-20) Creatinine 1.0 mg/dL (0.6-1.0) Estimated GFR (Cockcroft-Gault) 67.5 Glucose Level 330 mg/dL (70-99) Calcium Level 8.8 mg/dL (8.5-10.1) Test 01/20/19 11:27 01/20/19 13:52 Glucose (Fingerstick) 143 mg/dL (70-99) 146 mg/dL (70-99) Laboratory Tests Test 01/19/19 16:17 01/19/19 20:08 01/20/19 07:37 01/20/19 08:30 Glucose (Fingerstick) 273 mg/dL (70-99) 305 mg/dL (70-99) 312 mg/dL (70-99) White Blood Count 11.3 x10^3/uL (4.0-11.0) Red Blood Count 3.84 x10^6/uL (3.50-5.40) Hemoglobin 8.2 g/dL (12.0-15.5) Hematocrit 27.9 % (36.0-47.0) Mean Corpuscular Volume 73 fL (79-100) Mean Corpuscular Hemoglobin 21 pg (25-35) Mean Corpuscular Hemoglobin Concent 29 g/dL (31-37) Red Cell Distribution Width 23.2 % (11.5-14.5) Platelet Count 338 x10^3/uL (140-400) Neutrophils (%) (Auto) 57 % (31-73) Lymphocytes (%) (Auto) 28 % (24-48) Monocytes (%) (Auto) 13 % (0-9) Eosinophils (%) (Auto) 1 % (0-3) Basophils (%) (Auto) 1 % (0-3) Neutrophils # (Auto) 6.4 x10^3/uL (1.8-7.7) Lymphocytes # (Auto) 3.1 x10^3/uL (1.0-4.8) Monocytes # (Auto) 1.5 x10^3/uL (0.0-1.1) Eosinophils # (Auto) 0.1 x10^3/uL (0.0-0.7) Basophils # (Auto) 0.1 x10^3/uL (0.0-0.2) Sodium Level 140 mmol/L (136-145) Potassium Level 4.1 mmol/L (3.5-5.1) Chloride Level 101 mmol/L (98-107) Carbon Dioxide Level 30 mmol/L (21-32) Anion Gap 9 (6-14) Blood Urea Nitrogen 16 mg/dL (7-20) Creatinine 1.0 mg/dL (0.6-1.0) Estimated GFR (Cockcroft-Gault) 67.5 Glucose Level 330 mg/dL (70-99) Calcium Level 8.8 mg/dL (8.5-10.1) Test 01/20/19 11:27 01/20/19 13:52 Glucose (Fingerstick) 143 mg/dL (70-99) 146 mg/dL (70-99) VTE Prophylaxis Ordered VTE Prophylaxis Devices: Contraindicated VTE Pharmacological Prophylaxi: Yes Assessment/Plan Assessment/Plan Pt was seen yesterday at 0700 for initial assessment. Adallom was down during that time so H&P was written on paper as were initial orders. Please see pt's paper chart for documentation. DEVONTE ABAD MD Jan 20, 2019 15:25
[2019-01-20] MEDS: HYDROcodone/APAP 5/325MG 1 TAB TABLET PO PRN ×2 (17:18→23:52)
[2019-01-20] MEDS: POLYETHYLENE GLYCOL 3350 17 GM PACKET. PO SCH (17:18)
[2019-01-20] MEDS: FERROUS SULFATE 325 MG TABLET. PO SCH ×2 (17:18→20:38)
[2019-01-20] MEDS ORDERED: ACETAMINOPHEN 500 MG TABLET PO PRN (18:00)
[2019-01-20] MEDS: INSULIN GLARGINE 300 UNITS/3 ML INSULN.PEN. SQ SCH (18:35)
[2019-01-20 19:00] VITALS: BP 118/57
[2019-01-20] MEDS: ATORVASTATIN CALCIUM 40 MG TABLET. PO SCH (20:37)
[2019-01-20] MEDS ORDERED: INSULIN GLARGINE 300 UNITS/3 ML INSULN.PEN. SQ ONE (21:00)
[2019-01-20 23:00] VITALS: BP 129/66
[2019-01-20] MEDS: CYCLOBENZAPRINE 10 MG TABLET. PO SCH (23:52)
[2019-01-21 00:07] LABS: HEMOGLOBIN A1C 8.1 % (4.8-5.6)
[2019-01-21 03:00] VITALS: BP 129/66
[2019-01-21] MEDS: HYDROcodone/APAP 5/325MG 1 TAB TABLET PO PRN ×2 (03:56→09:39)
[2019-01-21 07:00] VITALS: BP 155/83
[2019-01-21] MEDS: metOLazone 2.5 MG TABLET PO SCH (09:24)
[2019-01-21] MEDS: CETIRIZINE HCL 10 MG TABLET. PO SCH (09:24)
[2019-01-21] MEDS: buPROPion XL 150 MG TAB.ER.24H. PO SCH (09:24)
[2019-01-21] MEDS: FERROUS SULFATE 325 MG TABLET. PO SCH ×3 (09:25→20:36)
[2019-01-21] MEDS: CLOPIDOGREL BISULFATE 75 MG TABLET PO SCH (09:25)
[2019-01-21] MEDS: hydroCHLOROthiazide 12.5 MG CAPSULE PO SCH (09:25)
[2019-01-21] MEDS: FUROSEMIDE 40 MG TABLET. PO SCH (09:25)
[2019-01-21] MEDS: GABAPENTIN 300 MG CAPSULE. PO SCH ×3 (09:25→20:36)
[2019-01-21] MEDS: LOSARTAN POTASSIUM 50 MG TABLET. PO SCH (09:25)
[2019-01-21] MEDS: cloNIDine HCL 0.2 MG TABLET PO SCH ×3 (09:26→21:00)
[2019-01-21] MEDS: DULoxetine HCL 30 MG CAPSULE.DR PO SCH (09:26)
[2019-01-21] MEDS: amLODIPine BESYLATE 5 MG TABLET PO SCH (09:26)
[2019-01-21] MEDS: metFORMIN 500 MG TABLET PO SCH ×2 (09:27→17:00)
[2019-01-21] MEDS: POTASSIUM CHLORIDE 10 MEQ TABLET.ER. PO SCH (09:27)
[2019-01-21] MEDS: PANTOPRAZOLE 40 MG TABLET.DR. PO SCH (09:27)
[2019-01-21] MEDS: METOPROLOL TART IMMED RELEASE 50 MG TABLET. PO SCH ×2 (09:27→21:00)
[2019-01-21] MEDS: POLYETHYLENE GLYCOL 3350 17 GM PACKET. PO SCH (09:28)
[2019-01-21] MEDS: INSULIN GLARGINE 300 UNITS/3 ML INSULN.PEN. SQ SCH ×2 (09:32→20:33)
[2019-01-21] MEDS: INSULIN LISPRO 300 UNITS/3 ML INSULN.PEN. SQ SCH ×6 (09:33→16:49)
[2019-01-21 11:00] VITALS: BP 108/36
--- NOTE | 2019-01-21 12:10 | PDOC ---
Subjective: Subjective: "The test was a zero but it can't be a zero because of my pain." Denies vomiting. Objective: Vital Signs: Vital Signs Date Time Temp Pulse Resp B/P (MAP) Pulse Ox O2 Delivery O2 Flow Rate FiO2 01/21/19 11:00 97.7 73 18 108/36 (60) 94 Nasal Cannula 3.0 97.7 Labs: Laboratory Tests Test 01/20/19 13:52 01/20/19 15:22 01/20/19 17:13 01/20/19 20:17 Glucose (Fingerstick) 146 mg/dL 138 mg/dL 99 mg/dL 91 mg/dL Test 01/21/19 08:27 01/21/19 10:42 Glucose (Fingerstick) 198 mg/dL 243 mg/dL URINE CULTURE Final Final Report URINE CULTURE RES 1 Final Mixed urogenital siddharth 10,000-25,000 colony forming units per mL Imaging: CT A/P on 01/18 noted fatty liver, cholecystectomy, moderate stool, suture material involving cecum PE: GEN: NAD, up to chair, grandson present LUNGS: CTAB HEART: RRR ABD: BS+, soft, obese, diffusely tender NEURO/PSYCH: A & O �3, tearful A/P: Melena - resolved Anemia - stable Abd pain -- CT from 01/18 as above - check abd x-ray, treat constipation more aggressively. Since I have seen, note orders for Mag Citrate. NANDA CHAUDHRY Jan 21, 2019 12:10
[2019-01-21] MEDS ORDERED: BISACODYL 5 MG TABLET.DR. PO ONE (12:15)
[2019-01-21] MEDS ORDERED: MAGNESIUM CITRATE 296 ML SOLUTION. PO ONE (12:15)
[2019-01-21 13:15] LABS: HEMATOCRIT 26.2 % (36.0-47.0); HEMOGLOBIN 7.7 g/dL (12.0-15.5); RED BLOOD COUNT 3.55 x10^6/uL (3.50-5.40); RED CELL DISTRIBUTION WIDTH 23.3 % (11.5-14.5); WHITE BLOOD COUNT 10.8 x10^3/uL (4.0-11.0)
[2019-01-21 15:01] VITALS: BP 107/53
--- NOTE | 2019-01-21 18:42 | RAD ---
EXAM: Two view abdomen with one view chest HISTORY: Abdominal pain, constipation. COMPARISON: 01/18/2019. FINDINGS: A frontal view of the chest and supine/upright views of the abdomen are obtained. There is a small left pleural effusion. Bibasilar opacities indicate atelectasis and likely mild pulmonary edema. No The heart is mildly enlarged. There are atherosclerotic calcifications of the aorta. There is no pneumoperitoneum. There are no distended small bowel loops or significant air-fluid levels. There is gas distally. There is mild gaseous distention of the colon. Cholecystectomy clips are noted. IMPRESSION: 1. Small pleural effusion. Mild pulmonary edema. Mild cardiomegaly. 2. No evidence of obstruction. Electronically signed by: Estephanie Benavides MD (01/21/2019 6:39 PM) [facility]
[2019-01-21 19:00] VITALS: BP 91/42
--- NOTE | 2019-01-21 19:39 | PDOC ---
PROGRESS NOTES Subjective Subjective Patient complains of continued abdominal pain and lower extremity pain. Patient admits to no BM for the last 4 days. Patient having now poor appetite resulting in lower blood sugars Objective Objective Vital Signs Date Time Temp Pulse Resp B/P (MAP) Pulse Ox O2 Delivery O2 Flow Rate FiO2 01/21/19 16:50 19 93 Nasal Cannula 3.0 01/21/19 15:01 98.0 70 107/53 (71) 98.0 Intake and Output 01/21/19 07:00 Intake Total 1000 ml Balance 1000 ml Intake Oral 1000 ml # Voids 2 Physical Exam Abdomen: Other (mild tender with decreased bowel sounds and fullness noted) Heart: Regular rate Extremities: Other (2-3+ edema) Lungs: Clear to auscultation Assessment Assessment Problems Medical Problems: (1) Dyspnea Status: Acute (2) Epigastric pain Status: Acute (3) Melena Status: Acute (4) Symptomatic anemia Status: Acute Severe constipation Hypoglycemia Blood loss anemia. Debilitation. Late effect CVA Type 2 diabetes out of control Hyperlipidemia Asthma/COPD history of CHF Morbid obesity Plan Plan of Care Decrease insulin. Transfer to custodial unit in a.m. Give cathartics for bowel movement. Received PT and OT modalities. Continue with iron supplementation. Monitor for worsening anemia. Comment Review of Relevant I have reviewed the following items emir (where applicable) has been applied. Labs Laboratory Tests Test 01/19/19 20:08 01/20/19 07:37 01/20/19 08:30 01/20/19 11:27 Glucose (Fingerstick) 305 mg/dL (70-99) 312 mg/dL (70-99) 143 mg/dL (70-99) White Blood Count 11.3 x10^3/uL (4.0-11.0) Red Blood Count 3.84 x10^6/uL (3.50-5.40) Hemoglobin 8.2 g/dL (12.0-15.5) Hematocrit 27.9 % (36.0-47.0) Mean Corpuscular Volume 73 fL (79-100) Mean Corpuscular Hemoglobin 21 pg (25-35) Mean Corpuscular Hemoglobin Concent 29 g/dL (31-37) Red Cell Distribution Width 23.2 % (11.5-14.5) Platelet Count 338 x10^3/uL (140-400) Neutrophils (%) (Auto) 57 % (31-73) Lymphocytes (%) (Auto) 28 % (24-48) Monocytes (%) (Auto) 13 % (0-9) Eosinophils (%) (Auto) 1 % (0-3) Basophils (%) (Auto) 1 % (0-3) Neutrophils # (Auto) 6.4 x10^3/uL (1.8-7.7) Lymphocytes # (Auto) 3.1 x10^3/uL (1.0-4.8) Monocytes # (Auto) 1.5 x10^3/uL (0.0-1.1) Eosinophils # (Auto) 0.1 x10^3/uL (0.0-0.7) Basophils # (Auto) 0.1 x10^3/uL (0.0-0.2) Sodium Level 140 mmol/L (136-145) Potassium Level 4.1 mmol/L (3.5-5.1) Chloride Level 101 mmol/L (98-107) Carbon Dioxide Level 30 mmol/L (21-32) Anion Gap 9 (6-14) Blood Urea Nitrogen 16 mg/dL (7-20) Creatinine 1.0 mg/dL (0.6-1.0) Estimated GFR (Cockcroft-Gault) 67.5 Glucose Level 330 mg/dL (70-99) Hemoglobin A1c 8.1 % (4.8-5.6) Calcium Level 8.8 mg/dL (8.5-10.1) Test 01/20/19 13:52 01/20/19 15:22 01/20/19 17:13 01/20/19 20:17 Glucose (Fingerstick) 146 mg/dL (70-99) 138 mg/dL (70-99) 99 mg/dL (70-99) 91 mg/dL (70-99) Test 01/21/19 08:27 01/21/19 10:42 01/21/19 12:55 01/21/19 16:32 Glucose (Fingerstick) 198 mg/dL (70-99) 243 mg/dL (70-99) 49 mg/dL (70-99) White Blood Count 10.8 x10^3/uL (4.0-11.0) Red Blood Count 3.55 x10^6/uL (3.50-5.40) Hemoglobin 7.7 g/dL (12.0-15.5) Hematocrit 26.2 % (36.0-47.0) Mean Corpuscular Volume 74 fL (79-100) Mean Corpuscular Hemoglobin 22 pg (25-35) Mean Corpuscular Hemoglobin Concent 30 g/dL (31-37) Red Cell Distribution Width 23.3 % (11.5-14.5) Platelet Count 324 x10^3/uL (140-400) Test 01/21/19 16:33 01/21/19 17:18 01/21/19 18:41 Glucose (Fingerstick) 43 mg/dL (70-99) 69 mg/dL (70-99) 78 mg/dL (70-99) Laboratory Tests Test 01/20/19 20:17 01/21/19 08:27 01/21/19 10:42 01/21/19 12:55 Glucose (Fingerstick) 91 mg/dL (70-99) 198 mg/dL (70-99) 243 mg/dL (70-99) White Blood Count 10.8 x10^3/uL (4.0-11.0) Red Blood Count 3.55 x10^6/uL (3.50-5.40) Hemoglobin 7.7 g/dL (12.0-15.5) Hematocrit 26.2 % (36.0-47.0) Mean Corpuscular Volume 74 fL (79-100) Mean Corpuscular Hemoglobin 22 pg (25-35) Mean Corpuscular Hemoglobin Concent 30 g/dL (31-37) Red Cell Distribution Width 23.3 % (11.5-14.5) Platelet Count 324 x10^3/uL (140-400) Test 01/21/19 16:32 01/21/19 16:33 01/21/19 17:18 01/21/19 18:41 Glucose (Fingerstick) 49 mg/dL (70-99) 43 mg/dL (70-99) 69 mg/dL (70-99) 78 mg/dL (70-99) Microbiology 01/18/19 Urine Culture - Final, Complete 01/18/19 Urine Culture Result 1 (JOHANNA) - Final, Complete Medications Current Medications Sodium Chloride 1,000 ml @ 1,000 mls/hr 1X ONCE IV Last administered on 01/18/19 15:20; Start 01/18/19 at 14:15; Stop 01/18/19 at 15:14; Status DC Ondansetron HCl (Zofran) 4 mg PRN Q8HRS PRN IV NAUSEA/VOMITING Last administered on 01/18/19 16:20; Start 01/18/19 at 15:45; Stop 01/19/19 at 15:44; Status DC Fentanyl Citrate (Fentanyl 2ml Vial) 50 mcg PRN Q4HRS PRN IV PAIN Last administered on 01/19/19 12:42; Start 01/18/19 at 15:45; Stop 01/19/19 at 15:44; Status DC Acetaminophen (Tylenol) 650 mg PRN Q4HRS PRN PO FEVER Last administered on 01/19/19 04:26; Start 01/18/19 at 15:45; Stop 01/19/19 at 15:44; Status DC Pantoprazole Sodium (Protonix) 40 mg DAILYAC PO ; Start 01/18/19 at 18:45; Stop 01/19/19 at 08:50; Status DC Furosemide (Lasix) 40 mg DAILY IVP Last administered on 01/19/19 09:26; Start 01/19/19 at 09:00; Stop 01/20/19 at 07:18; Status DC Hydralazine HCl (Apresoline Inj) 10 mg PRN Q4HRS PRN IVP ELEVATED BP, SEE COMMENTS Last administered on 01/19/19at 11:14; Start 01/19/19 at 08:45 Potassium Chloride/Sodium Chloride 1,000 ml @ 90 mls/hr Q11H7M IV Last administered on 01/20/19 01:09; Start 01/19/19 at 08:45; Stop 01/20/19 at 15:27; Status DC Insulin Glargine (Lantus) 30 units BID SQ Last administered on 01/19/19 20:55; Start 01/19/19 at 09:00; Stop 01/20/19 at 07:18; Status DC Insulin Human Lispro (HumaLOG) 0-5 UNITS TIDWMEALS SQ Last administered on 01/21/19 14:11; Start 01/19/19 at 12:00 Dextrose (Dextrose 50%-Water Syringe) 12.5 gm PRN Q15MIN PRN IV SEE COMMENTS; Start 01/19/19 at 08:45 Dextrose 250 ml PRN Q15MIN PRN IV SEE COMMENTS Last administered on 01/21/19 16:39; Start 01/19/19 at 08:45 Albuterol Sulfate (Ventolin Neb Soln) 2.5 mg PRN Q6HRS PRN NEB SHORTNESS OF BREATH Last administered on 01/19/19 17:03; Start 01/19/19 at 08:45 Pantoprazole Sodium (PROTONIX VIAL for IV PUSH) 40 mg DAILYAC IVP Last administered on 01/20/19 08:12; Start 01/19/19 at 09:00; Stop 01/20/19 at 14:11; Status DC Propofol 20 ml @ As Directed STK-MED ONCE IV ; Start 01/19/19 at 14:42; Stop 01/19/19 at 14:43; Status DC Fentanyl Citrate (Fentanyl 2ml Vial) 50 mcg PRN Q4HRS PRN IV PAIN Last administered on 01/20/19 08:12; Start 01/19/19 at 16:30; Stop 01/20/19 at 15:27; Status DC Ondansetron HCl (Zofran) 4 mg PRN Q6HRS PRN IV NAUSEA/VOMITING 1ST CHOICE Last administered on 01/20/19 01:53; Start 01/20/19 at 01:45 Amlodipine Besylate (Norvasc) 5 mg DAILY PO Last administered on 01/21/19 09:37; Start 01/20/19 at 09:00 Atorvastatin Calcium (Lipitor) 40 mg QHS PO Last administered on 01/20/19 20:39; Start 01/20/19 at 21:00 Bupropion HCl (Wellbutrin Xl) 150 mg DAILY PO Last administered on 01/21/19 09:37; Start 01/20/19 at 09:00 Clonidine HCl (Catapres) 0.2 mg TID PO Last administered on 01/21/19 14:05; Start 01/20/19 at 09:00 Clopidogrel Bisulfate (Plavix) 75 mg DAILY PO Last administered on 01/21/19 09:37; Start 01/20/19 at 09:00 Cyclobenzaprine HCl (Flexeril) 10 mg QHS PO Last administered on 01/20/19 23:52; Start 01/20/19 at 21:00 Furosemide (Lasix) 40 mg DAILY PO Last administered on 01/21/19 09:37; Start 01/20/19 at 09:00 Gabapentin (Neurontin) 300 mg TID PO Last administered on 01/21/19 14:05; Start 01/20/19 at 09:00 Hydrochlorothiazide (Microzide) 12.5 mg DAILY PO Last administered on 01/21/19 09:37; Start 01/20/19 at 09:00 Metformin HCl (Glucophage) 500 mg BIDWMEALS PO Last administered on 01/21/19 09:37; Start 01/20/19 at 08:00 Metoprolol Tartrate (Lopressor) 50 mg BID PO Last administered on 01/21/19 09:37; Start 01/20/19 at 09:00 Duloxetine HCl (Cymbalta) 60 mg DAILY PO Last administered on 01/21/19 09:37; Start 01/20/19 at 09:00 Insulin Human Lispro (HumaLOG) 50 units TIDWMEALS SQ Last administered on 01/21/19 14:11; Start 01/20/19 at 08:00; Stop 01/21/19 at 17:14; Status DC Insulin Glargine (Lantus) 65 units BID76 SQ Last administered on 01/20/19 08:12; Start 01/20/19 at 08:00; Stop 01/20/19 at 17:56; Status DC Cetirizine HCl (ZyrTEC) 10 mg DAILY PO Last administered on 01/21/19 09:37; Start 01/20/19 at 09:00 Losartan Potassium (Cozaar) 100 mg DAILY PO Last administered on 01/21/19 09:37; Start 01/20/19 at 09:00 Metolazone (Zaroxolyn) 5 mg DAILY PO Last administered on 01/21/19 09:37; Start 01/20/19 at 09:00 Potassium Chloride (Klor-Con) 10 meq DAILYWBKFT PO Last administered on 01/21/19 09:37; Start 01/20/19 at 08:00 Ferrous Sulfate (Feosol) 325 mg TID PO Last administered on 01/21/19 14:05; Start 01/20/19 at 14:00 Pantoprazole Sodium (Protonix) 40 mg DAILYAC PO Last administered on 01/21/19 09:37; Start 01/21/19 at 07:30 Polyethylene Glycol (miraLAX PACKET) 17 gm DAILY PO Last administered on 01/21/19 09:37; Start 01/20/19 at 15:00 Acetaminophen/ Hydrocodone Bitart (Lortab 5/325) 1 tab PRN Q4HRS PRN PO MODERATE PAIN Last administered on 01/21/19 09:39; Start 01/20/19 at 15:30 Insulin Glargine (Lantus) 20 units QHS SQ ; Start 01/20/19 at 21:00; Stop 01/20/19 at 18:32; Status DC Acetaminophen (Tylenol) 1,000 mg PRN Q6HRS PRN PO MILD PAIN / TEMP; Start 01/20/19 at 18:00 Insulin Glargine (Lantus) 65 units BID SQ Last administered on 01/21/19 09:37; Start 01/20/19 at 21:00; Stop 01/21/19 at 17:14; Status DC Insulin Glargine (Lantus) 20 units 1X ONCE SQ ; Start 01/20/19 at 21:00; Stop 01/20/19 at 21:01; Status DC Polyethylene Glycol (miraLAX PACKET) 17 gm DAILY PO ; Start 01/22/19 at 09:00; Stop 01/21/19 at 12:09; Status DC Magnesium Citrate (Citroma) 296 ml 1X ONCE PO Last administered on 01/21/19 14:05; Start 01/21/19 at 12:15; Stop 01/21/19 at 12:16; Status DC Bisacodyl (Dulcolax Tab) 10 mg 1X ONCE PO Last administered on 01/21/19 14:05; Start 01/21/19 at 12:15; Stop 01/21/19 at 12:16; Status DC Insulin Glargine (Lantus) 30 units BID SQ ; Start 01/21/19 at 21:00 Insulin Human Lispro (HumaLOG) 25 units TIDWMEALS SQ ; Start 01/22/19 at 08:00 Active Scripts Active Tanisha Vences (Insulin Glargine,Hum.rec.anlog) 300 Unit/1 Ml Insuln.pen 65 Unit SQ [id number] 30 Days Hydrochlorothiazide Capsule (Hydrochlorothiazide) 12.5 Mg Capsule 12.5 Mg PO DAILY 30 Days Metoprolol Tartrate 50 Mg Tablet 1 Tab PO BID Losartan Potassium 100 Mg Tablet 100 Mg PO DAILY 30 Days Bupropion Xl (Bupropion Hcl) 150 Mg Tab.er.24h 150 Mg PO DAILY 30 Days Reported Novolog (Insulin Aspart) 100 Unit/1 Ml Vial 50 Units SQ TIDAC Metolazone 5 Mg Tablet 5 Mg PO DAILY Gabapentin 300 Mg Capsule 300 Mg PO TID Cyclobenzaprine Hcl 10 Mg Tablet 1 Tab PO QHS Amlodipine Besylate 5 Mg Tablet 5 Mg PO DAILY Loratadine 10 Mg Tablet 1 Tab PO DAILY Metformin Hcl 500 Mg Tablet 500 Mg PO BIDWMEALS Furosemide 40 Mg Tablet 1 Tab PO DAILY Cymbalta (Duloxetine Hcl) 60 Mg Capsule.dr 1 Cap PO DAILY Klor-Con 10 (Potassium Chloride) 10 Meq Tablet.er 10 Meq PO DAILY Clopidogrel (Clopidogrel Bisulfate) 75 Mg Tablet 1 Tab PO DAILY Atorvastatin Calcium 40 Mg Tablet 1 Tab PO QHS Clonidine Hcl 0.2 Mg Tablet 0.2 Mg PO TID Vitals/I & O Vital Sign - Last 24 Hours 01/20/19 01/20/19 01/20/19 01/20/19 20:39 23:00 23:52 23:52 Temp 98.0 98.0 Pulse 81 73 73 Resp 16 B/P (MAP) 118/57 129/66 (87) 129/66 Pulse Ox 95 100 O2 Delivery Nasal Cannula Nasal Cannula O2 Flow Rate 3.0 3.0 01/21/19 01/21/19 01/21/19 01/21/19 03:00 03:49 03:57 05:58 Temp 98.0 98.0 Pulse 73 Resp 18 16 16 16 B/P (MAP) 129/66 (87) Pulse Ox 95 100 100 100 O2 Delivery Nasal Cannula Nasal Cannula Nasal Cannula Nasal Cannula O2 Flow Rate 3.0 3.0 3.0 3.0 01/21/19 01/21/19 01/21/19 01/21/19 07:00 09:37 09:37 09:37 Temp 97.5 97.5 Pulse 80 80 80 80 Resp 18 B/P (MAP) 155/83 (107) 155/83 155/83 155/83 Pulse Ox 94 O2 Delivery Nasal Cannula O2 Flow Rate 3.0 01/21/19 01/21/19 01/21/19 01/21/19 09:37 09:39 11:00 14:05 Temp 97.7 97.7 Pulse 80 73 73 Resp 20 18 B/P (MAP) 155/83 108/36 (60) 108/36 Pulse Ox 94 94 O2 Delivery Room Air Nasal Cannula O2 Flow Rate 3.0 01/21/19 01/21/19 15:01 16:50 Temp 98.0 98.0 Pulse 70 Resp 18 19 B/P (MAP) 107/53 (71) Pulse Ox 95 93 O2 Delivery Nasal Cannula Nasal Cannula O2 Flow Rate 3.0 3.0 Intake and Output 01/20/19 01/20/19 01/21/19 15:00 23:00 07:00 Intake Total 380 ml 220 ml 400 ml Balance 380 ml 220 ml 400 ml KEVIN GUERRERO MD Jan 21, 2019 19:39
[2019-01-21] MEDS: ATORVASTATIN CALCIUM 40 MG TABLET. PO SCH (20:36)
[2019-01-21] MEDS: CYCLOBENZAPRINE 10 MG TABLET. PO SCH (20:36)
[2019-01-21 22:40] VITALS: BP 102/46
[2019-01-22] MEDS: HYDROcodone/APAP 5/325MG 1 TAB TABLET PO PRN (01:15)
[2019-01-22 03:22] VITALS: BP 104/48
[2019-01-22 07:00] VITALS: BP 171/54
[2019-01-22] MEDS: INSULIN LISPRO 300 UNITS/3 ML INSULN.PEN. SQ SCH ×4 (08:00→12:59)
[2019-01-22] MEDS: DULoxetine HCL 30 MG CAPSULE.DR PO SCH (08:39)
[2019-01-22] MEDS: POLYETHYLENE GLYCOL 3350 17 GM PACKET. PO SCH (08:39)
[2019-01-22] MEDS: metOLazone 2.5 MG TABLET PO SCH (08:40)
[2019-01-22] MEDS: buPROPion XL 150 MG TAB.ER.24H. PO SCH (08:40)
[2019-01-22] MEDS: METOPROLOL TART IMMED RELEASE 50 MG TABLET. PO SCH (08:40)
[2019-01-22] MEDS: LOSARTAN POTASSIUM 50 MG TABLET. PO SCH (08:40)
[2019-01-22] MEDS: FERROUS SULFATE 325 MG TABLET. PO SCH ×2 (08:41→12:57)
[2019-01-22] MEDS: CETIRIZINE HCL 10 MG TABLET. PO SCH (08:41)
[2019-01-22] MEDS: CLOPIDOGREL BISULFATE 75 MG TABLET PO SCH (08:41)
[2019-01-22] MEDS: amLODIPine BESYLATE 5 MG TABLET PO SCH (08:41)
[2019-01-22] MEDS: metFORMIN 500 MG TABLET PO SCH (08:41)
[2019-01-22] MEDS: cloNIDine HCL 0.2 MG TABLET PO SCH ×2 (08:41→12:57)
[2019-01-22] MEDS: hydroCHLOROthiazide 12.5 MG CAPSULE PO SCH (08:42)
[2019-01-22] MEDS: POTASSIUM CHLORIDE 10 MEQ TABLET.ER. PO SCH (08:42)
[2019-01-22] MEDS: PANTOPRAZOLE 40 MG TABLET.DR. PO SCH (08:42)
[2019-01-22] MEDS: FUROSEMIDE 40 MG TABLET. PO SCH (08:42)
[2019-01-22] MEDS: GABAPENTIN 300 MG CAPSULE. PO SCH ×2 (08:42→12:57)
[2019-01-22] MEDS: INSULIN GLARGINE 300 UNITS/3 ML INSULN.PEN. SQ SCH (08:51)
[2019-01-22] MEDS ORDERED: POLYETHYLENE GLYCOL 3350 17 GM PACKET. PO SCH ×2 (09:00→21:00)
[2019-01-22] MEDS ORDERED: METHYLNALTREXONE 12 MG/0.6 ML VIAL. SQ ONE (10:00)
--- NOTE | 2019-01-22 10:08 | PDOC ---
Subjective: Subjective: Tolerating PO, has abd pain, passing gas, no stool. "I drank it twice." Objective: Objective: Nurse called early this morning asking about Mag Citrate and Relistor. We established that she did get Mag Citrate yesterday. Still c/o abd pain, has not stooled, apparently can't be discharged until she's had a bowel movement. Vital Signs: Vital Signs Date Time Temp Pulse Resp B/P (MAP) Pulse Ox O2 Delivery O2 Flow Rate FiO2 01/22/19 08:43 78 171/54 01/22/19 08:00 Nasal Cannula 2.0 01/22/19 07:00 98.0 18 94 98.0 Labs: Laboratory Tests Test 01/21/19 10:42 01/21/19 12:55 01/21/19 16:32 01/21/19 16:33 Glucose (Fingerstick) 243 mg/dL 49 mg/dL 43 mg/dL White Blood Count 10.8 x10^3/uL Red Blood Count 3.55 x10^6/uL Hemoglobin 7.7 g/dL Hematocrit 26.2 % Mean Corpuscular Volume 74 fL Mean Corpuscular Hemoglobin 22 pg Mean Corpuscular Hemoglobin Concent 30 g/dL Red Cell Distribution Width 23.3 % Platelet Count 324 x10^3/uL Test 01/21/19 17:18 01/21/19 18:41 01/21/19 19:21 01/21/19 20:31 Glucose (Fingerstick) 69 mg/dL 78 mg/dL 72 mg/dL 106 mg/dL Test 01/22/19 07:31 Glucose (Fingerstick) 124 mg/dL PE: GEN: NAD, up to chair, bits of otoole and eggs on her gown LUNGS: NC HEART: RRR ABD: large, BS+, soft, tender diffusely NEURO/PSYCH: A & O �3 A/P: Abd pain, constipation Microcytic anemia - a bit of drift in Hgb to 7.7, no melena since admission, EGD unrevealing, on iron TID HTN -- Try Relistor, increase Miralax, check anemia parameters. NANDA CHAUDHRY Jan 22, 2019 10:08
[2019-01-22] MEDS ORDERED: BISACODYL 5 MG TABLET.DR. PO PRN (10:15)
[2019-01-22 10:54] VITALS: BP 119/59
[2019-01-22] MEDS ORDERED: POLY17PO28 PO (13:09)
[2019-01-22] MEDS ORDERED: ALBU2.5V8 NEB (13:09)
[2019-01-22] MEDS ORDERED: PANT40TA77 PO (13:09)
[2019-01-22] MEDS ORDERED: INSU100I13 SQ (13:09)
[2019-01-22] MEDS ORDERED: INSU100I11 SQ (13:09)
[2019-01-22] MEDS ORDERED: FERR325T72 PO (13:09)
--- NOTE | 2019-01-22 13:11 | SNU/HH DC ---
DISCHARGE ORDERS DISCHARGE INFORMATION: DISCHARGE DATE: Jan 22, 2019 FINAL DIAGNOSIS Problems Medical Problems: (1) Dyspnea Status: Acute (2) Epigastric pain Status: Acute (3) Melena Status: Acute (4) Symptomatic anemia Status: Acute CONDITION ON DISCHARGE: Stable CODE STATUS: Code Status: Full MCFP: SNF STAY <30 DAYS: Yes POST DISCHARGE ORDERS: ACTIVITY ORDERS: Activity as tolerated WEIGHT BEARING STATUS: Full weight bearing DIET AFTER DISCHARGE: ADA CHECKS AFTER DISCHARGE: CHECKS AFTER DISCHARGE: Check blood sugar, ac/hs COMMENTS: soapsuds enema if no BM within the first 24 hours. TREATMENT/EQUIPMENT ORDERS: ADAPTIVE EQUIPMENT NEEDED: Walker Physical Therapy For: Evalulation/Treatment Occupational Therapy For: Evaluation/Treatment DISCHARGE MEDICATIONS: Home Meds Active Scripts Albuterol Sulfate (Proair Hfa) 8.5 Gm Hfa.aer.ad, 2.5 MG NEB PRN Q6HRS PRN for SHORTNESS OF BREATH for 30 Days, #1 INHALER Prov:KEVIN GUERRERO MD 01/22/19 Pantoprazole Sodium (PANTOPRAZOLE SODIUM ) 40 Mg Tablet.dr, 40 MG PO DAILYAC for gastritis for 30 Days, #30 TAB.SR Prov:KEVIN GUERRERO MD 01/22/19 Insulin Lispro (HUMALOG) 100 Unit/1 Ml Insuln.pen, 25 UNITS SQ TIDWMEALS for dm2 for 30 Days, #1 EACH Prov:KEVIN GUERRERO MD 01/22/19 Insulin Glargine,Hum.rec.anlog (LANTUS SOLOSTAR) 100 Unit/1 Ml Insuln.pen, 30 UNITS SQ HS for dm2 for 30 Days, #1 EACH Prov:KEVIN GUERRERO MD 01/22/19 Polyethylene Glycol 3350 (POLYETHYLENE GLYCOL 3350) 17 Gm Powd.pack, 17 GM PO BID for constipation for 30 Days, #60 PKT Prov:KEVIN GUERRERO MD 01/22/19 Ferrous Sulfate (FEOSOL) 325 Mg Tablet, 325 MG PO TID for anemia for 30 Days, #90 TAB Prov:KEVIN GUERRERO MD 01/22/19 Hydrochlorothiazide (HYDROCHLOROTHIAZIDE CAPSULE ) 12.5 Mg Capsule, 12.5 MG PO DAILY for DIURETIC for 30 Days, #30 CAP 0 Refills Prov:LITTLE LUQUE MD 05/16/18 Metoprolol Tartrate (METOPROLOL TARTRATE) 50 Mg Tablet, 1 TAB PO BID for htn, #60 TAB 5 Refills Prov:LITTLE LUQUE MD 05/16/18 Losartan Potassium (LOSARTAN POTASSIUM) 100 Mg Tablet, 100 MG PO DAILY for htn for 30 Days, #30 TAB Prov:LITTLE LUQUE MD 05/16/18 Bupropion Hcl (BUPROPION XL) 150 Mg Tab.er.24h, 150 MG PO DAILY for 30 Days, TAB Prov:KEVIN GUERRERO MD 09/30/14 Reported Medications Metolazone (METOLAZONE) 5 Mg Tablet, 5 MG PO DAILY for diuretic 01/18/19 Gabapentin (Gabapentin) 300 Mg Capsule, 300 MG PO TID for peripheral neuropathy 01/18/19 Cyclobenzaprine Hcl (CYCLOBENZAPRINE HCL) 10 Mg Tablet, 1 TAB PO QHS, #30 TAB 09/24/17 Amlodipine Besylate (AMLODIPINE BESYLATE) 5 Mg Tablet, 5 MG PO DAILY, TAB 09/24/17 Loratadine (LORATADINE) 10 Mg Tablet, 1 TAB PO DAILY, #30 TAB 5 Refills 09/24/17 Metformin Hcl (METFORMIN HCL) 500 Mg Tablet, 500 MG PO BIDWMEALS for ANTI- DIABETIC, TAB 0 Refills 09/24/17 Furosemide (FUROSEMIDE) 40 Mg Tablet, 1 TAB PO DAILY, #30 TAB 5 Refills 09/24/17 Duloxetine Hcl (CYMBALTA) 60 Mg Capsule.dr, 1 CAP PO DAILY, #90 CAP 3 Refills 09/24/17 Potassium Chloride (Klor-Con 10) 10 Meq Tablet.er, 10 MEQ PO DAILY, TAB.SR 09/24/17 Clopidogrel Bisulfate (CLOPIDOGREL) 75 Mg Tablet, 1 TAB PO DAILY, #90 TAB 1 Refill 09/24/14 Atorvastatin Calcium (ATORVASTATIN CALCIUM) 40 Mg Tablet, 1 TAB PO QHS, #90 TAB 3 Refills 09/24/14 Clonidine Hcl (CLONIDINE HCL) 0.2 Mg Tablet, 0.2 MG PO TID, TAB 09/24/14 Discontinued Reported Medications Insulin Aspart (NOVOLOG) 100 Unit/1 Ml Vial, 50 UNITS SQ TIDAC for insulin 01/18/19 Discontinued Scripts Insulin Glargine,Hum.rec.anlog (Toujeo Solostar) 300 Unit/1 Ml Insuln.pen, 65 UNIT SQ BID76 for dm for 30 Days, EACH Prov:LITTLE LUQUE MD 05/16/18 KEVIN GUERRERO MD Jan 22, 2019 13:11
[2019-01-22 14:55] VITALS: BP 113/69
[2019-01-22] MEDS ORDERED: INSULIN GLARGINE 300 UNITS/3 ML INSULN.PEN. SQ SCH (21:00)
== END 2019-01-22 16:33 | DRG 377 ==
LOC: ER 13:40 → 5 SOUTH 15:43
PROVIDERS: ADMIT Family Medicine; ATTEND Family Medicine
PROC: 0DJ08ZZ Inspection of Upper Intestinal Tract, Via Natural or Artificial Opening Endoscopic (ICD-10-PCS; 2019-01-19)
PROC: 30233N1 Transfusion of Nonautologous Red Blood Cells into Peripheral Vein, Percutaneous Approach (ICD-10-PCS; principal; 2019-01-19 15:00)
DX: K29.71 Gastritis, unspecified, with bleeding (principal); N17.0 Acute kidney failure with tubular necrosis; D62 Acute posthemorrhagic anemia; G81.90 Hemiplegia, unspecified affecting unspecified side; Z68.43 Body mass index [BMI] 50.0-59.9, adult; E66.01 Morbid (severe) obesity due to excess calories; E78.5 Hyperlipidemia, unspecified; I11.0 Hypertensive heart disease with heart failure; I50.9 Heart failure, unspecified; J44.9 Chronic obstructive pulmonary disease, unspecified; K21.9 Gastro-esophageal reflux disease without esophagitis; F41.9 Anxiety disorder, unspecified; M19.90 Unspecified osteoarthritis, unspecified site; E11.65 Type 2 diabetes mellitus with hyperglycemia; E11.42 Type 2 diabetes mellitus with diabetic polyneuropathy; K59.00 Constipation, unspecified; K76.0 Fatty (change of) liver, not elsewhere classified; Z74.01 Bed confinement status; Z79.4 Long term (current) use of insulin; Z79.899 Other long term (current) drug therapy; Z83.3 Family history of diabetes mellitus; Z90.49 Acquired absence of other specified parts of digestive tract; Z90.710 Acquired absence of both cervix and uterus; Z88.8 Allergy status to other drugs, medicaments and biological substances
CPT/HCPCS: 36415; 43235; 71045; 74022; 74176; 80048; 80053; 81001; 82962; 83036; 83690; 83735; 84484; 85025; 85027; 86850; 86900; 86901; 86920; 87086; 93005; 94640; 96361; 96374; C9113; J0360; J1815; J1940; J2212; J2405; J2704; J3010; J7030; J7613; P9016; 97535; 99285-25; G0378

== ENCOUNTER → 2019-02-03 | Day surgery (SDC) | payer MEDICARE, OTHER ==
[~2019-02-03] MED LIST changes: +ALBU2.5V8 NEB; +FERR325T72 PO; +GABA300C9 PO; +HYDR-2761 PO; +HYDROmorphone 2 MG/ML VIAL IV PRN; +INSU100V31 SQ; +IV RINGERS,LACTATED 1000ML 1,000 ML IV SCH; +LIDOCAINE 2% PF 5 ML VIAL. ONE; +METO5TAB4 PO; +MORPHINE SULFATE 2 MG/ML VIAL. IV PRN; +ONDANSETRON PF 4 MG/2 ML VIAL. IV PRN; +POLY17PO28 PO; +PROCHLORPERAZINE 10 MG/2 ML VIAL. IV PRN; +PROPOFOL 20 ML IV ONE; +fentaNYL PF VIAL 100 MCG/2 ML VIAL IV PRN
[2019-02-03 09:17] VITALS: BP 122/58
--- NOTE | 2019-02-03 10:11 | HP ---
ADMIT DATE: 02/03/2019 REASON: Anemia, history of polyps. HISTORY OF PRESENT ILLNESS: A 63-year-old female with past medical history significant for asthma, diabetes, hyperlipidemia, hypertension, history of colonic polyps, seen for interval colon exam. Bowel habits have been regular. The patient is noted to have symptomatic anemia with hemoglobin of 7.7. She denies any additional abdominal complaints at this time. PAST MEDICAL HISTORY: History of CVA, cholecystectomy, hysterectomy, appendectomy, diabetes, hypertension, and hyperlipidemia. ALLERGIES: ASPIRIN. MEDICATIONS: At the present time include albuterol, amlodipine, atorvastatin, bupropion, clonidine, Plavix, Cymbalta, ferrous sulfate, furosemide, hydrochlorothiazide, insulin, loratadine, losartan, metformin, metolazone, metoprolol, and Protonix. SOCIAL HISTORY: She does not drink or smoke. FAMILY HISTORY: Noncontributory. REVIEW OF SYSTEMS: Per records. PHYSICAL EXAMINATION: GENERAL: Reveals a ____ female. VITAL SIGNS: Temperature is 97, pulse is 61, respiratory rate 18. HEENT: Normocephalic, atraumatic head. Pupils and extraocular muscles are not tested. Sclerae anicteric. NECK: Supple. LUNGS: Clear. CARDIOVASCULAR: Reveals an S1, S2 without S3, S4 or appreciable murmur. ABDOMEN: Reveals soft abdomen. Normoactive bowel sounds without appreciable splenomegaly. Multiple surgical incisions. EXTREMITIES: Reveals no cyanosis, clubbing or edema. IMPRESSION: Chronic anemia with history of polyps and recent constipation. RECOMMENDATIONS: Colonoscopy is recommended to further assess and rule out malignancy, obstruction, inflammatory bowel disease, and recurrent polyps. Risks and benefits have been discussed and the patient is willing to proceed at this time. ARIANNA CAMARILLO MD DR: RUBÉN/alan JOB#: [id number] / [id number]
== END ==
LOC: ENDOS 07:11
PROVIDERS: ATTEND Internal Medicine Gastroenterology
DX: K57.30 Diverticulosis of large intestine without perforation or abscess without bleeding (principal); K64.0 First degree hemorrhoids; E11.9 Type 2 diabetes mellitus without complications; E78.5 Hyperlipidemia, unspecified; I10 Essential (primary) hypertension; Z86.010 Personal history of colon polyps; Z86.73 Personal history of transient ischemic attack (TIA), and cerebral infarction without residual deficits; Z90.49 Acquired absence of other specified parts of digestive tract; Z90.710 Acquired absence of both cervix and uterus; Z88.8 Allergy status to other drugs, medicaments and biological substances; Z79.84 Long term (current) use of oral hypoglycemic drugs
CPT/HCPCS: 45378; 82962; J2001; J2704

== ENCOUNTER → 2019-04-23 | Outpatient (CLI) | payer MEDICARE ==
[2019-04-12 15:07] VITALS: BP 135/68
[~2019-04-23] MED LIST changes: +CONTRAST GIVEN. MC PRN; -HYDROmorphone 2 MG/ML VIAL IV PRN; +IOHEXOL 350 MG/ML 100 ML VIAL. IV ONE; -IV RINGERS,LACTATED 1000ML 1,000 ML IV SCH; -LIDOCAINE 2% PF 5 ML VIAL. ONE; +LINE600T12 PO; -MORPHINE SULFATE 2 MG/ML VIAL. IV PRN; -ONDANSETRON PF 4 MG/2 ML VIAL. IV PRN; -PROCHLORPERAZINE 10 MG/2 ML VIAL. IV PRN; -PROPOFOL 20 ML IV ONE; -fentaNYL PF VIAL 100 MCG/2 ML VIAL IV PRN
--- NOTE | 2019-04-23 16:41 | RAD ---
CT angiography of the abdomen, and pelvis with bilateral lower extremity runoff. INDICATION: Right lower extremity cellulitis. Edema. History of right-sided hemiparesis secondary to prior large stroke. Morbid obesity. COMPARISON STUDY: Bilateral lower extremity arterial duplex ultrasound February 05, 2019 Technique: Multidetector CT imaging of the abdomen, pelvis, and lower extremities was performed following the administration of IV contrast. 3-D reconstructions of the bilateral lower extremity vasculature was created on an independent workstation and reviewed. Vascular findings: Visualized inferior thoracic aorta is unremarkable. Mild stenosis noted at the origin of the celiac artery. Superior mesenteric artery is patent. The bilateral renal arteries are patent. Inferior mesenteric artery is patent. There is no aortic aneurysm or dissection. Diffuse atherosclerotic vascular disease is noted. Right lower extremity: Right common iliac artery is patent. Moderate stenosis of the right internal iliac artery noted. Right external iliac artery is patent. Right common femoral artery is patent. Profunda artery is patent. Multifocal mild areas of stenoses of the right SFA are seen. Approximately 50% stenosis of the distal right SFA is seen in the adductor canal. The popliteal artery is patent. High-grade narrowing or stenosis is seen in the proximal right anterior tibial artery. More distal anterior tibial artery and dorsalis pedis artery appear patent proximally. High-grade stenosis or occlusion of the proximal peroneal artery is seen with distal reconstitution. Posterior tibial artery is patent extending into the lateral plantar artery. Multifocal subcutaneous edema is seen throughout the right foot, distal leg, and ankle. Than edema is seen in the bilateral thighs posteriorly. Left lower extremity. Moderate narrowing of the left internal iliac artery is seen. Left common iliac arteries patent left external iliac arteries patent common femoral artery is patent. Left profunda artery is patent. Multiple mild stenoses of the left superficial femoral artery is seen. 50% stenosis left SFA is seen in the adductor canal. Left popliteal artery is patent. Three-vessel runoff is present on the left. Nonvascular findings: Dependent atelectasis noted bilaterally. Calcified granuloma noted left lung base. Calcified granuloma noted in the spleen. Mild thickening of left adrenal gland is seen nonspecific. Pancreatic atrophy noted. No acute abnormalities involving the solid viscera of the abdomen are seen. There is no evidence of bowel obstruction. No acute inflammatory change involving visualized bowel is identified. Bladder is grossly unremarkable. No free fluid or free air is seen in the abdomen or pelvis. Hysterectomy noted. IMPRESSION: 1. No significant aortoiliac stenosis 2. 50% stenoses involving the bilateral superficial femoral arteries 3. Short segment occlusion or high-grade stenoses involving the right anterior tibial artery and peroneal artery. Posterior tibial artery is patent. 4. Three-vessel runoff on the left. CT DOSING PQRS STATEMENT: One or more of the following individualized dose reduction techniques were utilized for this examination: 1. Automated exposure control 2. Adjustment of the mA and/or kV according to patient size 3. Use of iterative reconstruction technique Electronically signed by: Siva Crowe MD (04/23/2019 4:38 PM) [id number]
== END | disposition home or self-care (01) ==
LOC: CT 15:03
PROVIDERS: ATTEND Family Medicine
DX: I70.293 Other atherosclerosis of native arteries of extremities, bilateral legs (principal); L03.115 Cellulitis of right lower limb; J98.11 Atelectasis; J84.10 Pulmonary fibrosis, unspecified; K86.89 Other specified diseases of pancreas; E66.01 Morbid (severe) obesity due to excess calories; I70.8 Atherosclerosis of other arteries; Z90.710 Acquired absence of both cervix and uterus
CPT/HCPCS: 75635; Q9967

== ENCOUNTER 2019-06-17 08:30 | Emergency (ER) | payer BC, MEDICARE ==
[~2019-06-17] VITALS: Ht 162.6 cm; Wt 136.1 kg
[~2019-06-17 08:30] MED LIST changes: -CONTRAST GIVEN. MC PRN; -IOHEXOL 350 MG/ML 100 ML VIAL. IV ONE
[2019-06-17] MEDS ORDERED: fentaNYL PF VIAL 100 MCG/2 ML VIAL IV PRN (09:00)
[2019-06-17] MEDS ORDERED: ONDANSETRON PF 4 MG/2 ML VIAL. IV ONE (09:00)
[2019-06-17 10:00] VITALS: BP 151/68
--- NOTE | 2019-06-17 10:18 | RAD ---
Examination: 2 views of the right shoulder, 2 views of the left forearm, 3 views of the right hand HISTORY: History of fall, pain COMPARISON: None available. FINDINGS: The humerus head is within the glenoid. There is calcification identified superior to the humerus head likely rotator cuff calcification/calcific tendinitis. Moderate degenerative changes identified in the acromioclavicular joint. The alignment of the radius, ulna grossly appears unremarkable. There is questionable cortical step-off identified in the distal radius probably secondary to positioning or age indeterminate fracture. Recommend wrist radiograph for better evaluation. The alignment of the carpal bones grossly appears unremarkable. Moderate joint space loss identified in the carpometacarpal joints. Flexion at the PIP joint of the hand identified. Mild degenerative changes PIP and DIP joints of the hand. IMPRESSION: 1. There is calcification identified superior to the humerus head likely rotator cuff calcification/calcific tendinitis. 2. There is questionable cortical step-off identified in the left distal radius probably secondary to positioning or age indeterminate fracture. Recommend wrist radiograph for better evaluation. Electronically signed by: Clifton Agrawal MD (06/17/2019 10:15 AM) [facility]
--- NOTE | 2019-06-17 10:29 | PHYS DOC ---
Past Medical History Past Medical History: CVA, Diabetes-Type I, Hypertension, Stroke Additional Past Medical Histor: Right side defecit from past CVA Past Surgical History: Appendectomy, Cholecystectomy, Hysterectomy, Other Additional Past Surgical Histo: back Alcohol Use: None Drug Use: None Adult General Chief Complaint Chief Complaint: MECHANICAL FALL HPI HPI Patient is a 64-year-old female who presents with complaint of neck and back pain as well as right shoulder and right hand pain after falling this morning while transferring from bed to wheelchair. Patient does not recall whether she fell forward or backward. She denies any chest pain or shortness. She does i ndicate that she thinks she bumped her head but denies having had loss of consciousness. Patient rates her pain as moderate.[] Review of Systems Review of Systems Constitutional: Denies fever or chills [] Respiratory: Denies cough or shortness of breath [] Cardiovascular: No additional information not addressed in HPI [] GI: Denies abdominal pain, nausea, vomiting or diarrhea [] Musculoskeletal: Complains of right shoulder, right hand and back pain [] Integument: Denies rash or skin lesions [] Neurologic: Denies headache, focal weakness or sensory changes [] All other systems were reviewed and found to be within normal limits, except as documented in this note. Current Medications Current Medications Current Medications Medications (Trade) Dose Ordered Sig/Nam Start Time Stop Time Status Last Admin Dose Admin Fentanyl Citrate (Fentanyl 2ml Vial) 50 mcg PRN Q15MIN PRN 06/17/19 09:00 06/17/19 12:45 DC 06/17/19 09:59 50 MCG Ondansetron HCl (Zofran) 4 mg 1X ONCE 06/17/19 09:00 06/17/19 09:13 DC 06/17/19 09:58 4 MG Allergies Allergies Allergies Coded Allergies Type Severity Reaction Last Updated Verified aspirin Adverse Reaction Intermediate UPSET STOMACHE 02/03/19 Yes Physical Exam Physical Exam Constitutional: Well developed, well nourished, no acute distress, non-toxic appearance. [] HENT: Normocephalic, atraumatic, bilateral external ears normal, oropharynx moist, no oral exudates, nose normal. [] Eyes: PERRLA, EOMI, conjunctiva normal, no discharge. [] Neck: Normal range of motion, with mild suboccipital tenderness, supple. [] Cardiovascular: Regular rate and rhythm[] Lungs & Thorax: Bilateral breath sounds clear to auscultation [] Abdomen: Bowel sounds normal, soft, no tenderness. [] Skin: Warm, dry, no erythema, no rash. [] Extremities: Right hand demonstrates tenderness to palpation over the fifth digit as well as the fifth metacarpal. [] Neurologic: Awake and alert, no focal deficits noted. [] Current Patient Data Vital Signs Vital Signs Date Time Temp Pulse Resp B/P (MAP) Pulse Ox O2 Delivery O2 Flow Rate FiO2 06/17/19 12:00 86 20 96 06/17/19 08:50 98.2 131/65 (87) Nasal Cannula 2.0 98.2 Lab Values Laboratory Tests Test 06/17/19 11:30 Sodium Level 135 mmol/L (136-145) L Potassium Level 3.6 mmol/L (3.5-5.1) Chloride Level 95 mmol/L (98-107) L Carbon Dioxide Level 28 mmol/L (21-32) Anion Gap 12 (6-14) Blood Urea Nitrogen 47 mg/dL (7-20) H Creatinine 1.5 mg/dL (0.6-1.0) H Estimated GFR (Cockcroft-Gault) 42.2 Glucose Level 289 mg/dL (70-99) H Calcium Level 9.0 mg/dL (8.5-10.1) Laboratory Tests 06/17/19 11:30 EKG EKG [] Radiology/Procedures Radiology/Procedures [] Impressions: Examination: CT HEAD AND CERVICAL SPINE WO, CT THORACIC SPINE WO CONTRAST, CT LUMBAR SPINE WO CONTRAST History: Fall, pain Comparison/Correlation: 05/16/2018 CT head without contrast Findings: Axial images of the head, cervical spine, thoracic spine, lumbar spine were obtained without contrast. Sagittal and coronal reformatted images were also provided. Atrophy is present. No intracranial hemorrhage, midline shift, or mass effect. Old left occipital lobe infarct noted. Old right temporal occipital infarct again noted. Possible involvement of the ethmoid air cells noted. Opacification of the sphenoid sinus is noted. Small left ahsan bullosa is noted. Small bilateral maxillary sinus polyps are present. Atlantoaxial joint degenerative changes are present. Severe disc space narrowing from C4 to C7 is present. C7-T1 facet joint degenerative changes in particular are noted. Significant endplate spurring and disc osteophyte complex involvement from C3 to C7 is present with no interval thecal sac effacement and spinal canal narrowing. Effacement of the spinal cord morphology at C6-7 in particular is noted. Moderate T1-2 left-sided neural foraminal narrowing is present due to bony encroachment. Multilevel disc space narrowing of the thoracic spine noted. Dextroconvexity thoracic spine noted. T10-11 disc space narrowing is present. Facet joint degenerative changes of the lower lumbar spine are present bilaterally. Vertebral body heights are adequate. Left-sided L5 laminotomy defect is present. Marked facet joint degenerative changes are present bilaterally at the lower lumbar spine. Sacroiliac joints are unremarkable. Impression: No fracture or malalignment. Degenerative changes are present. Thecal sac and spinal cord morphology effacement noted in particular at the cervical spine. Correlate clinically and determine further evaluation on a nonemergent basis. PQRS Compliance Statement: One or more of the following individualized dose reduction techniques were utilized for this examination: 1. Automated exposure control 2. Adjustment of the mA and/or kV according to patient size 3. Use of iterative reconstruction technique Electronically signed by: Florencio Donahue MD (06/17/2019 11:33 AM) [facility] Course & Med Decision Making Course & Med Decision Making Pertinent Labs and Imaging studies reviewed. (See chart for details) [] Dragon Disclaimer Dragon Disclaimer This electronic medical record was generated, in whole or in part, using a voice recognition dictation system. Departure Departure Impression: Primary Impression: Back strain Additional Impression: Contusion of hand, right Disposition: 01 HOME, SELF-CARE Condition: STABLE Referrals: KEVIN GUERRERO MD (PCP) Patient Instructions: Contusion, Lumbosacral Strain, Thoracic Outlet Syndrome- Brief Scripts Orphenadrine Citrate (ORPHENADRINE CITRATE) 100 Mg Tablet.er 1 TAB PO BID PRN for MUSCLE SPASMS, #14 TAB Prov: IZZY CLARKE Jr. DO 06/17/19 Hydrocodone/Apap 5-325 (NORCO 5-325 TABLET) 1 Each Tablet 1-2 EACH PO PRN Q6HRS PRN for PAIN, #15 as needed for pain Prov: IZZY CLARKE Jr. DO 06/17/19 Diclofenac Sodium (DICLOFENAC SODIUM) 50 Mg Tablet.dr 1 TAB PO BID PRN for PAIN, #20 TAB Prov: IZZY CLARKE Jr. DO 06/17/19 Problem Qualifiers Primary Impression: Back strain Encounter type: initial encounter Qualified Codes: S39.012A - Strain of muscle, fascia and tendon of lower back, initial encounter Additional Impression: Contusion of hand, right Encounter type: initial encounter Qualified Codes: S60.221A - Contusion of right hand, initial encounter IZZY CLARKE Jr. DO Jun 17, 2019 10:29
--- NOTE | 2019-06-17 11:35 | RAD ---
Examination: CT HEAD AND CERVICAL SPINE WO, CT THORACIC SPINE WO CONTRAST, CT LUMBAR SPINE WO CONTRAST History: Fall, pain Comparison/Correlation: 05/16/2018 CT head without contrast Findings: Axial images of the head, cervical spine, thoracic spine, lumbar spine were obtained without contrast. Sagittal and coronal reformatted images were also provided. Atrophy is present. No intracranial hemorrhage, midline shift, or mass effect. Old left occipital lobe infarct noted. Old right temporal occipital infarct again noted. Possible involvement of the ethmoid air cells noted. Opacification of the sphenoid sinus is noted. Small left ahsan bullosa is noted. Small bilateral maxillary sinus polyps are present. Atlantoaxial joint degenerative changes are present. Severe disc space narrowing from C4 to C7 is present. C7-T1 facet joint degenerative changes in particular are noted. Significant endplate spurring and disc osteophyte complex involvement from C3 to C7 is present with no interval thecal sac effacement and spinal canal narrowing. Effacement of the spinal cord morphology at C6-7 in particular is noted. Moderate T1-2 left-sided neural foraminal narrowing is present due to bony encroachment. Multilevel disc space narrowing of the thoracic spine noted. Dextroconvexity thoracic spine noted. T10-11 disc space narrowing is present. Facet joint degenerative changes of the lower lumbar spine are present bilaterally. Vertebral body heights are adequate. Left-sided L5 laminotomy defect is present. Marked facet joint degenerative changes are present bilaterally at the lower lumbar spine. Sacroiliac joints are unremarkable. Impression: No fracture or malalignment. Degenerative changes are present. Thecal sac and spinal cord morphology effacement noted in particular at the cervical spine. Correlate clinically and determine further evaluation on a nonemergent basis. PQRS Compliance Statement: One or more of the following individualized dose reduction techniques were utilized for this examination: 1. Automated exposure control 2. Adjustment of the mA and/or kV according to patient size 3. Use of iterative reconstruction technique Electronically signed by: Florencio Donahue MD (06/17/2019 11:33 AM) [facility]
[2019-06-17 11:47] LABS: CREATININE 1.5 mg/dL (0.6-1.0); GFR 42.2; POTASSIUM 3.6 mmol/L (3.5-5.1)
[2019-06-17] MEDS ORDERED: HYDR-3164 PO (12:07)
[2019-06-17] MEDS ORDERED: ORPH100T PO (12:07)
[2019-06-17] MEDS ORDERED: DICL50TA4 PO (12:07)
== END 2019-06-17 12:30 | disposition home or self-care (01) ==
LOC: ER 08:30
DX: S39.012A Strain of muscle, fascia and tendon of lower back, initial encounter (principal); S60.221A Contusion of right hand, initial encounter; M25.511 Pain in right shoulder; M54.2 Cervicalgia; M79.632 Pain in left forearm; R51 Headache; E10.9 Type 1 diabetes mellitus without complications; I10 Essential (primary) hypertension; Z86.73 Personal history of transient ischemic attack (TIA), and cerebral infarction without residual deficits; Z90.49 Acquired absence of other specified parts of digestive tract; Z90.89 Acquired absence of other organs; Z90.710 Acquired absence of both cervix and uterus; Z88.6 Allergy status to analgesic agent; W17.89XA Other fall from one level to another, initial encounter; Y93.89 Activity, other specified; Y92.89 Other specified places as the place of occurrence of the external cause; Y99.8 Other external cause status
CPT/HCPCS: 36415; 70450; 72125; 72128; 72131; 73030; 73090; 73130; 80048; 96374; 96375; 99285; J2405; J3010

== ENCOUNTER → 2020-01-27 | Outpatient (CLI) | payer BC ==
[2020-01-27] VITALS (7 sets, daily range): BP systolic 146–174; BP diastolic 65–78
[~2020-01-27] MED LIST changes: +DICL50TA4 PO; +FUROSEMIDE 40 MG/4 ML VIAL. IVP ONE; +FUROSEMIDE 40 MG/4 ML VIAL. ONE; +HYDR-3164 PO; +ORPH100T PO
[2020-01-27 08:03] LABS: HEMATOCRIT 16.2 % (36.0-47.0); HEMOGLOBIN 4.5 g/dL (12.0-15.5)
== END | disposition home or self-care (01) ==
LOC: OPS 07:07
PROVIDERS: ATTEND Family Medicine
DX: D64.9 Anemia, unspecified (principal); I11.0 Hypertensive heart disease with heart failure; I50.9 Heart failure, unspecified; K21.9 Gastro-esophageal reflux disease without esophagitis; E78.5 Hyperlipidemia, unspecified; G89.29 Other chronic pain; E11.621 Type 2 diabetes mellitus with foot ulcer; E11.622 Type 2 diabetes mellitus with other skin ulcer; E66.01 Morbid (severe) obesity due to excess calories; Z68.43 Body mass index [BMI] 50.0-59.9, adult; Z79.82 Long term (current) use of aspirin; Z90.710 Acquired absence of both cervix and uterus; Z90.49 Acquired absence of other specified parts of digestive tract; Z86.73 Personal history of transient ischemic attack (TIA), and cerebral infarction without residual deficits; Z79.4 Long term (current) use of insulin
CPT/HCPCS: 36415; 36430; 85014; 85018; 86850; 86870; 86900; 86901; 86902; 86922; 96374; J1940; P9016